=== PATIENT | female | born 1945 | race Caucasian/White ===

== ENCOUNTER 2018-01-06 09:44 | Inpatient (IN) | payer MEDICARE, BC ==
[~2018-01-06] VITALS: Ht 167.6 cm; Wt 83.7 kg
[2018-01-06 09:45] VITALS: BP 134/56; PULSE 108; RESP 24; TEMP 101.3; O2SAT 100
--- NOTE | 2018-01-06 10:38 | PD ---
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 Said she went to urgent care and they thought it was bursitis and gave her prednisone and tramadol. Said the pain is worst and she is unable to move her left hip due to pain. Denies any trauma, focal weakness or numbness, chest pain, sob, vomiting, abdominal pain. Pt had fever and nausea today. PFSH Social History Tobacco Use: No Allergies-Medications (Allergen,Severity, Reaction): Coded Allergies: Penicillins (Verified Allergy, Mild, 01/06/18) sulfamethoxazole (Verified Allergy, Mild, 01/06/18) trimethoprim (Verified Allergy, Mild, 01/06/18) Reported Meds & Prescriptions Reported Meds & Active Scripts Active Reported Magnesium Oxide 500 Mg Tab 500 Mg PO DAILY Calcium 600 with Vitamin D (Calcium Carbonate-Cholecalciferol) 600-400 mg-Unit Tab 1 Tab PO DAILY Centrum Silver Women Tablet (Multivit-Min/Iron/Folic/Lutein) 8 Mg Iron-400 Mcg- 300 Mcg Tablet 1 B Complex (B-Complex Vitamins) 1 Cap 1 Cap PO DAILY Glucosamine-Chondroitin 500-400 Mg Tab 1 Tab PO DAILY Niacin 500 Mg Tab 500 Mg PO DAILY Lotronex (Alosetron HCl) 1 Mg Tab 1 Mg PO BID Glucophage (Metformin HCl) 1,000 Mg Tab 1,000 Mg PO BIDPC Zoloft (Sertraline HCl) 100 Mg Tab 100 Mg PO DAILY Atenolol 25 Mg Tab 25 Mg PO DAILY Zocor (Simvastatin) 40 Mg Tab 40 Mg PO DAILY Review of Systems Except as stated in HPI: all other systems reviewed are Neg Physical Exam Narrative GENERAL: 72yo F in moderate distress. SKIN: Focused skin assessment warm/dry. HEAD: Atraumatic. Normocephalic. EYES: Pupils equal and round. No scleral icterus. No injection or drainage. CARDIOVASCULAR: Regular rate and rhythm. No murmur appreciated. RESPIRATORY: No accessory muscle use. Clear to auscultation. Breath sounds equal bilaterally. GASTROINTESTINAL: Abdomen soft, non-tender, nondistended. MUSCULOSKELETAL: Left hip: +TTP left hip up to mid femur. Warm to touch but no erythema, open wounds or discharge. Decreased ROM due to pain. Sensation intact. Distal pulses intact. NEUROLOGICAL: Awake and alert. No obvious cranial nerve deficits. Motor grossly within normal limits. Normal speech. PSYCHIATRIC: Appropriate mood and affect; insight and judgment normal. Data Data Last Documented VS Vital Signs Date Time Temp Pulse Resp B/P (MAP) Pulse Ox O2 Delivery O2 Flow Rate FiO2 01/06/18 11:51 85 17 117/58 (77) 94 Room Air 01/06/18 09:45 101.3 Orders Orders Blood Culture (01/06/18 10:31) Complete Blood Count With Diff (01/06/18 10:31) Basic Metabolic Panel (Bmp) (01/06/18 10:31) Prothrombin Time / Inr (Pt) (01/06/18 10:31) Act Partial Throm Time (Ptt) (01/06/18 10:31) Lactic Acid Sepsis Protocol (01/06/18 10:31) Hip, Uni(Ap&Lat) W Ap Pelvis (01/06/18 ) Acetaminophen (Tylenol) (01/06/18 10:45) Sodium Chlor 0.9% 1000 Ml Inj (Ns 1000 M (01/06/18 10:45) Morphine Inj (Morphine Inj) (01/06/18 10:45) Ondansetron Inj (Zofran Inj) (01/06/18 10:45) Vancomycin Inj (Vancomycin Inj) (01/06/18 12:00) Mri Joint Hip W&W/O Contrast (01/06/18 ) Morphine Inj (Morphine Inj) (01/06/18 12:30) Admit Order (Ed Use Only) (01/06/18 12:21) Labs Laboratory Tests Test 01/06/18 10:40 01/06/18 10:45 White Blood Count 16.4 TH/MM3 Red Blood Count 4.12 MIL/MM3 Hemoglobin 11.2 GM/DL Hematocrit 33.8 % Mean Corpuscular Volume 82.1 FL Mean Corpuscular Hemoglobin 27.1 PG Mean Corpuscular Hemoglobin Concent 33.0 % Red Cell Distribution Width 15.9 % Platelet Count 241 TH/MM3 Mean Platelet Volume 7.7 FL Neutrophils (%) (Auto) 93.8 % Lymphocytes (%) (Auto) 2.0 % Monocytes (%) (Auto) 4.0 % Eosinophils (%) (Auto) 0.1 % Basophils (%) (Auto) 0.1 % Neutrophils # (Auto) 15.3 TH/MM3 Lymphocytes # (Auto) 0.3 TH/MM3 Monocytes # (Auto) 0.6 TH/MM3 Eosinophils # (Auto) 0.0 TH/MM3 Basophils # (Auto) 0.0 TH/MM3 CBC Comment DIFF FINAL Differential Comment Prothrombin Time 11.2 SEC Prothromb Time International Ratio 1.1 RATIO Activated Partial Thromboplast Time 26.3 SEC Blood Urea Nitrogen 18 MG/DL Creatinine 1.00 MG/DL Random Glucose 173 MG/DL Calcium Level 9.1 MG/DL Sodium Level 130 MEQ/L Potassium Level 4.4 MEQ/L Chloride Level 96 MEQ/L Carbon Dioxide Level 26.2 MEQ/L Anion Gap 8 MEQ/L Estimat Glomerular Filtration Rate 55 ML/MIN Lactic Acid Level 1.9 mmol/L MDM Medical Decision Making Medical Screen Exam Complete: Yes Emergency Medical Condition: Yes Differential Diagnosis Septic joint vs. abscess vs. cancer Narrative Course 72yo F with left hip pain for a few days. No trauma. Pt is febrile, tachycardic and unable to move left hip secondary to pain. Pt is septic and suspect septic arthritis so blood cultures, labs and lactic acid sent. Labs reviewed, leukocytosis at 16.4. Lactic acid 1.9. Xray left hip showed arthritic changes. Pt reevaluated after morphine and still with a lot of pain, concerning for infectious process. MRI left hip ordered and pt empirically covered with IV vancomycin. MRI left hip showed joint effusion with enhancement. Pt will need arthrocentesis and orthopedic consult. Discussed with Dr. Oglesby and accepted to her service. Sepsis Criteria SIRS Criteria (2 or more): Temp > 100.9 or < 96.8, Heart rate over 90 Sepsis Criteria (SIRS+source): Infect source susp/known Diagnosis Primary Impression: Septic joint Qualified Codes: M00.9 - Pyogenic arthritis, unspecified Admitting Information Admitting Physician Requests: Admit Bere Blankenship DO Jan 06, 2018 10:38
[2018-01-06] MEDS ORDERED: SODIUM CHLOR 0.9% 1000 ML INJ 1,000 ML IV ONE (10:45)
[2018-01-06] MEDS ORDERED: MORPHINE SULFATE 2 MG/ML INJ IV PUSH ONE ×2 (10:45→12:30)
[2018-01-06] MEDS ORDERED: ACETAMINOPHEN 325 MG TAB PO ONE (10:45)
[2018-01-06] MEDS ORDERED: ONDANSETRON HCL 4 MG/2 ML VIAL IV PUSH ONE (10:45)
[2018-01-06 11:17] LABS: AUTOMATED NEUTROPHIL # 15.3 TH/MM3 (1.8-7.7); BASOPHIL % 0.1 % (0.0-2.0); EOSINOPHIL % 0.1 % (0.0-4.0); HEMATOCRIT 33.8 % (35.0-46.0); HEMOGLOBIN 11.2 GM/DL (11.6-15.3); LYMPHOCYTE # 0.3 TH/MM3 (1.0-4.8); MEAN CELL VOLUME 82.1 FL (80.0-100.0); MEAN CORPUSCULAR HEMOGLOBIN 27.1 PG (27.0-34.0); MEAN PLATELET VOLUME 7.7 FL (7.0-11.0); MONOCYTE # 0.6 TH/MM3 (0-0.9); NEUT % 93.8 % (16.0-70.0); PLATELET COUNT 241 TH/MM3 (150-450); RED BLOOD COUNT 4.12 MIL/MM3 (4.00-5.30); RED CELL DISTRIBUTION WIDTH 15.9 % (11.6-17.2); WHITE BLOOD COUNT 16.4 TH/MM3 (4.0-11.0)
[2018-01-06 11:29] LABS: INTERNATIONAL NORMALIZED RATIO 1.1 RATIO; PROTHROMBIN TIME - PATIENT 11.2 SEC (9.8-11.6)
[2018-01-06 11:33] LABS: BICARBONATE 26.2 MEQ/L (21.0-32.0); CALCIUM 9.1 MG/DL (8.5-10.1)
[2018-01-06 11:51] VITALS: BP 117/58; PULSE 85; RESP 17; O2SAT 94
--- NOTE | 2018-01-06 11:57 | RADRPT ---
EXAM DATE/TIME: 01/06/2018 11:38 [facility] COMPARISON: No previous studies available for comparison. INDICATIONS : Pain. MEDICAL HISTORY : None. SURGICAL HISTORY : None. ENCOUNTER: Initial ACUITY: 4 - 6 days PAIN SCORE: 9/10 LOCATION: Left Lateral hip. FINDINGS: No fracture is seen. There is narrowing of the left hip joint. There are peripheral osteophytes at th e femoral head. The pubic symphysis and sacroiliac joints are intact. There is degenerative change of the lumbar spine. Clips are seen in the right lower quadrant. CONCLUSION: Arthritic change at the left hip joint. Ceasar Lopez MD on January 06, 2018 at 11:55 Board Certified Radiologist. This report was verified electronically.
[2018-01-06] MEDS ORDERED: VANCOMYCIN INJ 1,150 MG in SODIUM CHLOR 0.9% 250 ML INJ 250 ML IV ONE (12:00)
[2018-01-06 12:27] VITALS: BP 116/56; PULSE 90; RESP 18; O2SAT 100
[2018-01-06] MEDS ORDERED: LACTULOSE SYRUP 20 GM/30 ML CUP PO PRN (12:45)
[2018-01-06] MEDS ORDERED: SODIUM CHLORIDE 0.9% FLUSH 10 ML FLUSH IV FLUSH PRN (12:45)
[2018-01-06] MEDS ORDERED: NALOXONE HCL 0.4 MG/ML AMP IV PUSH PRN (12:45)
[2018-01-06] MEDS ORDERED: Vancomycin Consult Pharmacy 1 EA OTHER SCH (12:45)
[2018-01-06] MEDS ORDERED: VANCOMYCIN INJ 1,000 MG in SODIUM CHLOR 0.9% 250 ML INJ 250 ML IV SCH (12:45)
[2018-01-06] MEDS ORDERED: MORPHINE SULFATE 2 MG/ML INJ IV PUSH PRN (12:45)
[2018-01-06] MEDS ORDERED: ONDANSETRON HCL 4 MG/2 ML VIAL IVP PRN (12:45)
[2018-01-06] MEDS ORDERED: ACETAMINOPHEN 325 MG TAB PO PRN ×2 (12:45)
[2018-01-06] MEDS ORDERED: ACETAMINOPHEN/HYDROcodone 325 MG/5 MG TAB PO PRN (12:45)
[2018-01-06] MEDS ORDERED: SENNOSIDES 8.6 MG TAB PO PRN (12:45)
[2018-01-06] MEDS ORDERED: BISACODYL 10 MG SUPP RECTAL PRN (12:45)
[2018-01-06] MEDS ORDERED: MAGNESIUM HYDROXIDE SUSP 30 ML CUP PO PRN (12:45)
[2018-01-06 12:49] VITALS: O2SAT 95
[2018-01-06] MEDS ORDERED: GADODIAMIDE PF 287 MG/ML 20 ML VIAL (for RAD MRI) IVCONTRAST ONE (12:55)
--- NOTE | 2018-01-06 13:13 | HHI.HP ---
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 Said she went to urgent care and they thought it was bursitis and gave her prednisone and tramadol. Said the pain is worst and she is unable to move her left hip due to pain. Denies any trauma, focal weakness or numbness, chest pain, sob, vomiting, abdominal pain. No urinary complaints. Denies any cough. Pt had fever and nausea today. 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 Ferny Gimenez September 2014 laser surgery to stop nasal bleeding Dr. Ramirez September 2015 cataract surgery both eyes October 27, 2016 removal of left kidney and carcinoid tumor Dr. Maradiaga March 07, 2017 surgical biopsy of staph infection in neck Dr. Jiménez, patient says stomach infection was not MRSA Reported Medications Reported Meds & Active Scripts Active Reported Magnesium Oxide 500 Mg Tab 500 Mg PO DAILY Calcium 600 with Vitamin D (Calcium Carbonate-Cholecalciferol) 600-400 mg-Unit Tab 1 Tab PO DAILY Centrum Silver Women Tablet (Multivit-Min/Iron/Folic/Lutein) 8 Mg Iron-400 Mcg- 300 Mcg Tablet 1 B Complex (B-Complex Vitamins) 1 Cap 1 Cap PO DAILY Glucosamine-Chondroitin 500-400 Mg Tab 1 Tab PO DAILY Niacin 500 Mg Tab 500 Mg PO DAILY Lotronex (Alosetron HCl) 1 Mg Tab 1 Mg PO BID Glucophage (Metformin HCl) 1,000 Mg Tab 1,000 Mg PO BIDPC Zoloft (Sertraline HCl) 100 Mg Tab 100 Mg PO DAILY Atenolol 25 Mg Tab 25 Mg PO DAILY Zocor (Simvastatin) 40 Mg Tab 40 Mg PO DAILY Allergies: Coded Allergies: Penicillins (Verified Allergy, Mild, 01/06/18) sulfamethoxazole (Verified Allergy, Mild, 01/06/18) trimethoprim (Verified Allergy, Mild, 01/06/18) Family History No history of cancer in family Social History Denies alcohol use, illicit drug use or tobacco use Physical Exam Vital Signs Vital Signs Date Time Temp Pulse Resp B/P (MAP) Pulse Ox O2 Delivery O2 Flow Rate FiO2 01/06/18 12:49 95 21 01/06/18 12:27 90 18 116/56 (76) 100 01/06/18 11:51 85 17 117/58 (77) 94 Room Air 01/06/18 09:45 101.3 108 24 134/56 (82) 100 Physical Exam GENERAL: This is a well-nourished, well-developed patient, in no apparent distress. SKIN: No rashes, ecchymoses or lesions. Cool and dry. HEAD: Atraumatic. Normocephalic. No temporal or scalp tenderness. EYES: Pupils equal round and reactive. Extraocular motions intact. No scleral icterus. No injection or drainage. ENT: Nose without bleeding, purulent drainage or septal hematoma. Throat without erythema, tonsillar hypertrophy or exudate. Uvula midline. Airway patent. NECK: Trachea midline. No JVD or lymphadenopathy. Supple, nontender, no meningeal signs. CARDIOVASCULAR: Regular rate and rhythm without murmurs, gallops, or rubs. RESPIRATORY: Clear to auscultation. Breath sounds equal bilaterally. No wheezes , rales, or rhonchi. GASTROINTESTINAL: Abdomen soft, non-tender, nondistended. No hepato-splenomegaly , or palpable masses. No guarding. MUSCULOSKELETAL: Extremities without clubbing, cyanosis, or edema. Limited range of motion of left hip due to severe pain. There is no erythema or edema of the left hip. No joint tenderness, effusion, or edema noted. No calf tenderness. Negative Homans sign bilaterally. NEUROLOGICAL: Awake and alert. Cranial nerves II through XII intact. Motor and sensory grossly within normal limits. Five out of 5 muscle strength in all muscle groups. Normal speech. Laboratory Laboratory Tests Test 01/06/18 10:40 01/06/18 10:45 White Blood Count 16.4 Red Blood Count 4.12 Hemoglobin 11.2 Hematocrit 33.8 Mean Corpuscular Volume 82.1 Mean Corpuscular Hemoglobin 27.1 Mean Corpuscular Hemoglobin Concent 33.0 Red Cell Distribution Width 15.9 Platelet Count 241 Mean Platelet Volume 7.7 Neutrophils (%) (Auto) 93.8 Lymphocytes (%) (Auto) 2.0 Monocytes (%) (Auto) 4.0 Eosinophils (%) (Auto) 0.1 Basophils (%) (Auto) 0.1 Neutrophils # (Auto) 15.3 Lymphocytes # (Auto) 0.3 Monocytes # (Auto) 0.6 Eosinophils # (Auto) 0.0 Basophils # (Auto) 0.0 CBC Comment DIFF FINAL Differential Comment Prothrombin Time 11.2 Prothromb Time International Ratio 1.1 Activated Partial Thromboplast Time 26.3 Blood Urea Nitrogen 18 Creatinine 1.00 Random Glucose 173 Calcium Level 9.1 Sodium Level 130 Potassium Level 4.4 Chloride Level 96 Carbon Dioxide Level 26.2 Anion Gap 8 Estimat Glomerular Filtration Rate 55 Lactic Acid Level 1.9 Date/Time Source Procedure Growth Status 01/06/18 10:45 Blood Peripheral Aerobic Blood Culture Pending Received 01/06/18 10:45 Blood Peripheral Anaerobic Blood Culture Pending Received Result Diagram: 01/06/18 1040 01/06/18 1040 Caprini VTE Risk Assessment Caprini VTE Risk Assessment: Mod/High Risk (score >= 2) Caprini Risk Assessment Model Point Value = 1 Point Value = 2 Point Value = 3 Point Value = 5 Age 41-60 Minor surgery BMI > 25 kg/m2 Swollen legs Varicose veins or History of unexplained or recurrent spontaneous Oral contraceptives or hormone replacement Sepsis (< 1 month) Serious lung disease, including pneumonia (< 1 month) Abnormal pulmonary function Acute myocardial infarction Congestive heart failure (< 1 month) History of inflammatory bowel disease Medical patient at bed rest Age 61-74 Arthroscopic surgery Major open surgery (> 45 min) Laparoscopic surgery (> 45 min) Malignancy Confined to bed (> 72 hours) Immobilizing plaster cast Central venous access Age >= 75 History of VTE Family history of VTE Factor V Leiden Prothrombin [id number] Lupus anticoagulant Anticardiolipin antibodies Elevated serum homocysteine Heparin-induced thrombocytopenia Other congenital or acquired thrombophilia Stroke (< 1 month) Elective arthroplasty Hip, pelvis, or leg fracture Acute spinal cord injury (< 1 month) Prophylaxis Regimen Total Risk Factor Score Risk Level Prophylaxis Regimen 0-1 Low Early ambulation 2 Moderate Order ONE of the following: *Sequential Compression Device (SCD) *Heparin 5000 units SQ BID 3-4 Higher Order ONE of the following medications: *Heparin 5000 units SQ TID *Enoxaparin/Lovenox 40 mg SQ daily (WT < 150 kg, CrCl > 30 mL/min) *Enoxaparin/Lovenox 30 mg SQ daily (WT < 150 kg, CrCl > 10-29 mL/min) *Enoxaparin/Lovenox 30 mg SQ BID (WT < 150 kg, CrCl > 30 mL/min) AND/OR *Sequential Compression Device (SCD) 5 or more Highest Order ONE of the following medications: *Heparin 5000 units SQ TID (Preferred with Epidurals) *Enoxaparin/Lovenox 40 mg SQ daily (WT < 150 kg, CrCl > 30 mL/min) *Enoxaparin/Lovenox 30 mg SQ daily (WT < 150 kg, CrCl > 10-29 mL/min) *Enoxaparin/Lovenox 30 mg SQ BID (WT < 150 kg, CrCl > 30 mL/min) AND *Sequential Compression Device (SCD) Assessment and Plan Assessment and Plan Very pleasant 72-year-old female with Left hip pain, inability to ambulate, left hip effusion seen on MRI Sepsis patient presented with leukocytosis, tachycardia, fever temp 101.3 source of infection likely left hip. X-ray of the left hip reviewed, no fracture MRI of the left hip reviewed shows left hip joint effusion with joint space narrowing and surrounding enhancement. Blood cultures obtained With multiple antibiotic allergies, started on vancomycin IV antibiotic Received 1 L bolus normal saline in the emergency room Continue IV fluids normal saline Consult orthopedics for further evaluation Consult infectious disease Diabetes mellitus type 2 hold metformin. Monitor blood sugar. Accu-Cheks, insulin sliding scale Chronic medical problems appears at baseline monitor. Restart home medications as appropriate DVT prophylaxis SCDs/teds. Hold chemical prophylaxis at this time patient with history of HHT, Arik Neal Rendu syndrome Discussed Condition With Patient, family at bedside, nurse, ED physician Dr. Blnakenship Physician Certification 2 Midnight Certification Type: Admission for Inpatient Services Order for Inpatient Services The services are ordered in accordance with Medicare regulations or non- Medicare payer requirements, as applicable. In the case of services not specified as inpatient-only, they are appropriately provided as inpatient services in accordance with the 2-midnight benchmark. Estimated LOS (days): 3 days is the estimated time the patient will need to remain in the hospital, assuming treatment plan goals are met and no additional complications. Post-Hospital Plan: Home Shannan Oglesby MD Jan 06, 2018 13:13
--- NOTE | 2018-01-06 13:26 | RADRPT ---
EXAM DATE/TIME: 01/06/2018 12:37 [facility] COMPARISON: HIP LEFT (AP&LAT 2/3VWS) W AP PELVIS, January 06, 2018, 11:38. INDICATIONS : Severe left hip pain x 2 days. CONTRAST: 15 cc Omniscan (gadodiamide) IV MEDICAL HISTORY : Carcinoma, colon. Diabetes mellitus type 2. Carcinoma kidney SURGICAL HISTORY : Colon resection. Cholecystectomy. Left kidney removed. ENCOUNTER: Initial ACUITY: 2 day PAIN SCORE: 10/10 LOCATION: Left hip TECHNIQUE: Multiplanar, multisequence MRI examination was performed without contrast and after the intravenous a dministration of gadolinium. FINDINGS: BONE/CARTILAGE: Bone marrow signal is homogeneous. There is diffuse thinning of the articular cartilage at the left f emoral head and acetabulum. There is some spurring at the periphery of the femoral head. LABRUM: Within normal limits. MUSCLES/TENDONS: All of the visualized muscles and tendons are intact. MISCELLANEOUS: There is a left hip joint effusion. There some increased signal in the adductor muscles medial to the proximal femur. There is also some edema seen in the anterior distal gluteus musculature anterior an d lateral to the greater trochanter. There is some edema within the lateral subcutaneous fat lateral to the hip seen on the axial images. This can be correlated the patient's head in the recent injury. POST-CONTRAST: There is enhancement in the soft tissues immediately surrounding the left femoral neck. CONCLUSION: Left hip joint effusion with joint space narrowing and surrounding enhancement. This can be secondary to underlying arthritis. Some peripheral inflammatory change from effusion could cause this appearan ce. Infection cannot be excluded in the correct clinical situation. However, given the osteophytes, m uch of this may be from chronic change. The edema within the adductor muscles and distal gluteal musc ulature could be from strain. Ceasar Lopez MD on January 06, 2018 at 13:09 Board Certified Radiologist. This report was verified electronically.
[2018-01-06] MEDS: SODIUM CHLOR 0.9% 1000 ML INJ 1,000 ML IV SCH ×2 (13:53→23:39)
[2018-01-06] MEDS ORDERED: ENOXAPARIN SODIUM 40 MG/0.4 ML SYRINGE SQ SCH (15:00)
[2018-01-06 16:00] VITALS: BP 110/52; PULSE 86; RESP 18; TEMP 99.3; O2SAT 93
[2018-01-06] MEDS ORDERED: HYDROmorphone HCL PF 1 MG/ML VIAL IV PUSH PRN (16:30)
[2018-01-06] MEDS ORDERED: ZOCO40TA PO (16:35)
[2018-01-06] MEDS ORDERED: ATEN25TA PO (16:36)
[2018-01-06] MEDS ORDERED: ZOLO100T PO (16:37)
[2018-01-06] MEDS ORDERED: GLUC1000 PO (16:38)
[2018-01-06] MEDS ORDERED: NIAC500T5 PO (16:38)
[2018-01-06] MEDS ORDERED: [UNRECOGNIZED DRUG - CODE] PO (16:38)
[2018-01-06] MEDS ORDERED: GLUC500T4 PO (16:40)
[2018-01-06] MEDS ORDERED: VITACAP7 PO (16:41)
[2018-01-06] MEDS ORDERED: CALC1TAB87 PO (16:43)
[2018-01-06] MEDS ORDERED: MULT1TAB61 (16:43)
[2018-01-06] MEDS ORDERED: MAGN500T2 PO (16:45)
[2018-01-06] MEDS: HYDROmorphone HCL PF 2 MG/ML VIAL IV PRN (18:05)
[2018-01-06] MEDS ORDERED: GLUCAGON 1 MG/ML VIAL OTHER PRN (18:15)
[2018-01-06] MEDS ORDERED: DEXTROSE 50% IN WATER 50 ML VIAL(D50) IV PUSH PRN (18:15)
[2018-01-06 20:00] VITALS: BP 152/65; PULSE 120; RESP 18; TEMP 100.4; O2SAT 92
--- NOTE | 2018-01-06 20:45 | HHI.IDPN ---
Note Infectious Disease Note PATIENT SEEN AND EXAMINED. FULL CONSULT DICTATED. Suspect septic arthritis of the left hip. Patient to be seen by orthopedic surgeon. Would like to get diagnostic aspiration. Hopefully tomorrow. Will hold antibiotic until aspiration and resume after. Vital Signs Date Time Temp Pulse Resp B/P (MAP) Pulse Ox O2 Delivery O2 Flow Rate FiO2 01/06/18 18:22 01/06/18 16:00 99.3 86 18 110/52 (71) 93 01/06/18 12:49 95 21 01/06/18 12:27 90 18 116/56 (76) 100 01/06/18 11:51 85 17 117/58 (77) 94 Room Air 01/06/18 09:45 101.3 108 24 134/56 (82) 100 Laboratory Tests Test 01/06/18 10:40 01/06/18 10:45 White Blood Count 16.4 TH/MM3 Red Blood Count 4.12 MIL/MM3 Hemoglobin 11.2 GM/DL Hematocrit 33.8 % Mean Corpuscular Volume 82.1 FL Mean Corpuscular Hemoglobin 27.1 PG Mean Corpuscular Hemoglobin Concent 33.0 % Red Cell Distribution Width 15.9 % Platelet Count 241 TH/MM3 Mean Platelet Volume 7.7 FL Neutrophils (%) (Auto) 93.8 % Lymphocytes (%) (Auto) 2.0 % Monocytes (%) (Auto) 4.0 % Eosinophils (%) (Auto) 0.1 % Basophils (%) (Auto) 0.1 % Neutrophils # (Auto) 15.3 TH/MM3 Lymphocytes # (Auto) 0.3 TH/MM3 Monocytes # (Auto) 0.6 TH/MM3 Eosinophils # (Auto) 0.0 TH/MM3 Basophils # (Auto) 0.0 TH/MM3 CBC Comment DIFF FINAL Differential Comment Prothrombin Time 11.2 SEC Prothromb Time International Ratio 1.1 RATIO Activated Partial Thromboplast Time 26.3 SEC Blood Urea Nitrogen 18 MG/DL Creatinine 1.00 MG/DL Random Glucose 173 MG/DL Calcium Level 9.1 MG/DL Sodium Level 130 MEQ/L Potassium Level 4.4 MEQ/L Chloride Level 96 MEQ/L Carbon Dioxide Level 26.2 MEQ/L Anion Gap 8 MEQ/L Estimat Glomerular Filtration Rate 55 ML/MIN Lactic Acid Level 1.9 mmol/L Rahul Aguirre MD Jan 06, 2018 20:45
[2018-01-06] MEDS: SODIUM CHLORIDE 0.9% FLUSH 10 ML FLUSH IV FLUSH SCH (21:00)
[2018-01-06] MEDS: ALOSETRON 1 MG PO SCH (21:00)
[2018-01-06] MEDS: DOCUSATE SODIUM 50 MG/SENNA 8.6 MG TAB PO SCH (21:00)
--- NOTE | 2018-01-06 21:35 | MB ---
cc: STEFANIE OGLESBY MD, FRANKLYN F. MD DATE OF CONSULTATION: 01/06/[address] Oglesby. REASON FOR CONSULTATION: Sepsis, immunocompromised patient. Possible septic arthritis. HISTORY OF PRESENT ILLNESS This is a 72-year-old white female who was brought to the emergency department because of left hip pain. The patient and her are traveling from [place]. She developed pain in the left hip and was evaluated at an [facility] five days ago. She was given pain medication since it was felt that it was likely due to bursitis. However, the pain persisted and three days ago the patient's had to get a wheelchair because she had difficulty ambulating and eventually he brought her to the emergency department for evaluation. An MRI was performed and it showed left hip joint effusion with joint space narrowing and surrounding enhancement. The patient had no fevers reported before but she had an elevated temperature of 101.3 degrees this morning and white blood cell count was 16.4 with left shift. Blood cultures were obtained and she was started on vancomycin. This consultation is requested for evaluation. The patient has a history of renal cancer. She underwent nephrectomy in October 2016. She developed a staph wound infection at the cervical area of the neck in February of 2017 and received antibiotic therapy. The states that the staph was a sensitive staph and was not MRSA. The patient and her have been vacationing. They went to [place] about ten days ago but after she had walked in the park she did not complain of any pain. She denies any strain The patient was also given prednisone at the time when she was given the pain medication at the Urgent Care Center. PAST MEDICAL HISTORY/PAST SURGICAL HISTORY 1. Fmqjw-Qkvlr-Gnswa syndrome. 2. Diabetes mellitus. 3. Irritable bowel syndrome. 4. 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 5. Left knee arthroscopic surgery in 1985. 6. Cholecystectomy. 7. Breast lump resection. 8. History of laser surgery of the nose. 9. 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 ALLERGIES PENICILLIN. BACTRIM. MEDICATIONS: 1. Vancomycin. 2. Tenormin. 3. Zoloft. 4. Niacin. 5. Pravachol. 6. Deidra-Colace 7. Insulin. 8. [place] 5 p.r.n. SOCIAL HISTORY: The patient is . She lives with her . Positive alcohol use. No tobacco. No illicit drug use. FAMILY HISTORY: Noncontributory. REVIEW OF SYSTEMS: Significant for left hip pain and difficulty ambulating. The patient reports the pain was a 10/10 scale, otherwise negative. PHYSICAL EXAMINATION: This is a well-developed female who is very drowsy from receiving pain medications. She however awakens easily and is alert and oriented when awakened. Vital signs: Include temperature 99.3, BP 101/52, respirations 1886. Heart rate 86. HEENT: Head is atraumatic. Extraocular movements grossly intact, pupils reactive to light. No icterus. Oropharynx has moist mucosa. Neck: Supple without adenopathy. Lungs: Clear breath sounds bilateral. Heart: Regular S1-S2. No murmurs, rubs, or gallops. Abdomen: Bowel sounds present, soft, nontender. EXTREMITIES: The left hip has tenderness on deep palpation and elicits pain on raising the left leg, no significant visible edema, no erythema. RECTAL: Not performed. SKIN: No rash. NEUROLOGIC: No gross focal findings. PSYCHIATRIC: Patient is calm and cooperative. LABORATORY DATA: BC 16.4, platelets 241, 93% neutrophils, creatinine 1.0, BUN 18, sodium 130, blood cultures pending. IMPRESSION 1. Septic arthritis of the left hip with left hip effusion. 2. Leukocytosis. RECOMMENDATIONS 1. Hold on the vancomycin since the patient will likely need to have aspiration of the left hip for diagnostic purposes. 2. Monitor the temperature 3. Obtain sedimentation rate and C-reactive protein. 4. Once the decision on aspiration of the hip is made the antibiotic can be resumed with treatment with vancomycin. Thank you for the consultation. I will follow the patient's progress. The impression has been discussed with the patient's who was at bedside during my evaluation. Rahul Aguirre MD FD/KASHIF /8:27 PM /9:07 PM
[2018-01-06] MEDS: INSULIN ASPART SUPPLEMENTAL SCALE SQ SCH (22:32)
[2018-01-07] VITALS (11 sets, daily range): BP systolic 96–135; BP diastolic 44–86; PULSE 72–120; RESP 18–20; TEMP 97.3–98.5; O2SAT 92–99
[2018-01-07] MEDS: HYDROmorphone HCL PF 2 MG/ML VIAL IV PRN ×3 (00:53→16:23)
[2018-01-07] MEDS: ACETAMINOPHEN/HYDROcodone 325 MG/10 MG TAB PO PRN ×2 (01:24→05:58)
[2018-01-07] MEDS ORDERED: METOPROLOL TARTRATE 25 MG TAB PO ONE (02:00)
[2018-01-07 03:35] LABS: BASOPHIL % 0.1 % (0.0-2.0); HEMATOCRIT 31.8 % (35.0-46.0); HEMOGLOBIN 10.6 GM/DL (11.6-15.3); LYMPH % 3.9 % (9.0-44.0); LYMPHOCYTE # 0.6 TH/MM3 (1.0-4.8); MEAN CELL VOLUME 82.3 FL (80.0-100.0); MEAN CORPUSCULAR HEMOGLOBIN 27.4 PG (27.0-34.0); MEAN CORPUSCULAR HGB CONC 33.3 % (32.0-36.0); MEAN PLATELET VOLUME 7.9 FL (7.0-11.0); MONO % 5.3 % (0.0-8.0); MONOCYTE # 0.8 TH/MM3 (0-0.9); NEUT % 90.7 % (16.0-70.0); PLATELET COUNT 235 TH/MM3 (150-450); RED BLOOD COUNT 3.86 MIL/MM3 (4.00-5.30); RED CELL DISTRIBUTION WIDTH 16.1 % (11.6-17.2); WHITE BLOOD COUNT 15.4 TH/MM3 (4.0-11.0)
[2018-01-07 04:00] LABS: BICARBONATE 21.8 MEQ/L (21.0-32.0); CALCIUM 8.6 MG/DL (8.5-10.1); CREATININE 1.29 MG/DL (0.50-1.00); MAGNESIUM 1.9 MG/DL (1.5-2.5)
[2018-01-07 04:23] LABS: TOXIC VACUOLATION PRESENT (NONE SEEN)
[2018-01-07] MEDS ORDERED: HYDROmorphone HCL PF 2 MG/ML VIAL IV PUSH ONE (04:30)
--- NOTE | 2018-01-07 05:43 | RADRPT ---
EXAM DATE/TIME: 01/07/2018 04:31 [facility] COMPARISON: No previous studies available for comparison. INDICATIONS : Short of breath. MEDICAL HISTORY : None. SURGICAL HISTORY : None. ENCOUNTER: Subsequent ACUITY: 1 week PAIN SCORE: 0/10 LOCATION: Bilateral chest FINDINGS: Cardiac silhouette is mildly enlarged. Mild diffuse interstitial prominence. Bony thorax is intact. CONCLUSION: 1. Cardiomegaly with mild positive fluid balance. Doug Hurtado MD on January 07, 2018 at 5:42 Board Certified Radiologist. This report was verified electronically.
[2018-01-07] MEDS ORDERED: FUROSEMIDE 40 MG/4 ML VIAL IV PUSH ONE (06:15)
--- NOTE | 2018-01-07 08:42 | PD.CONS ---
cc: Farida Garcia Left hip pain (Farida Garcia) HPI Service Orthopedic Surgeons Consult Requested By ER staff Reason for Consult Left hip pain, effusion on MRI Primary Care Physician Unknown Admission Diagnosis Sepsis with left hip pain Diagnoses: (1) Effusion of hip joint, left Diagnosis: Principal (2) History of staph infection Chief Complaint: Left hip pain (Farida Garcia) History of Present Illness 72-year-old very pleasant female presented to [place] emergency department late last evening after having excruciating left hip pain and not feeling well. Patient was admitted for questionable sepsis. Patient states she is currently on vacation and has had left hip pain for 3 days, it subsequently got worse yesterday evening. Patient admits to a history of a staph infection in her cervical spine, possibly an epidural abscess, approximately 2 years ago after a nephrectomy. 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 MRI revealed a left hip effusion, orthopedic consultation was requested at this time. is at bedside. Patient states that she's had no previous orthopedic interventions of her left hip, she is aware that she has osteoarthritis and left hip. Only previous orthopedic surgeries include a knee arthroscopic surgery in the late . Previously ambulated unassisted prior to this injury. No other musculoskeletal concerns. (Farida Garcia) Review of Systems Well outlined medical record (Farida Garcia) Past Family Social History Past Medical History Usxjn-Xbqrl-Jfdnz, DM2, Irritable bowel, right colectomy secondary to adenocarcinoma of cecum 2006, carcinoid tumor s/p left nephrectomy 10/2016 and now cancer free since 2016 Past Surgical History right colectomy secondary to adenocarcinoma of cecum 2006, carcinoid tumor s/p left nephrectomy 10/2016 tonsillectomy February 1986 arthroscopic surgery of left knee to remove torn cartilage May 1988 emergent cholecystectomy with infection in bile duct May 1989 deviated septum repaired September 2003 surgery to remove lump in right breast - benign June 2004, May 2005, June 2006, August 2007, January 2010, April 2012 laser nose surgery at [place] and [place], [place] Dr. 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 Ferny Gimenez September 2014 laser surgery to stop nasal bleeding Dr. Ramirez September 2015 cataract surgery both eyes October 27, 2016 removal of left kidney and carcinoid tumor Dr. Maradiaga March 07, 2017 surgical biopsy of staph infection in neck Dr. Jiménez, patient says stomach infection was not MRSA (Farida Garcia) Allergies: Coded Allergies: Penicillins (Verified Allergy, Mild, 01/06/18) sulfamethoxazole (Verified Allergy, Mild, 01/06/18) trimethoprim (Verified Allergy, Mild, 01/06/18) Active Ordered Medications Current Medications Medications (Trade) Dose Ordered Sig/Dalia Route Start Time Stop Time Status Last Admin Pharmacy Profile Note 0 ml @ 0 mls/hr UNSCH OTHER 01/06/18 12:45 Sodium Chloride 1,000 ml @ 100 mls/hr Q10H IV 01/06/18 13:00 Future Hold 01/06/18 23:39 (NS Flush) 2 ml UNSCH PRN IV FLUSH 01/06/18 12:45 (NS Flush) 2 ml BID IV FLUSH 01/06/18 21:00 (Tylenol) 650 mg Q4H PRN PO 01/06/18 12:45 01/06/18 23:51 (Zofran Inj) 4 mg Q6H PRN IVP 01/06/18 12:45 (Tylenol) 650 mg Q6H PRN PO 01/06/18 12:45 ([place] 5-325 Mg) 1 tab Q4H PRN PO 01/06/18 12:45 ([place] 10-325 Mg) 1 tab Q4H PRN PO 01/06/18 12:45 01/07/18 05:58 (Narcan Inj) 0.4 mg UNSCH PRN IV PUSH 01/06/18 12:45 (Deidra-Colace) 1 tab BID PO 01/06/18 21:00 (Milk Of Magnesia Liq) 30 ml Q12H PRN PO 01/06/18 12:45 (Senokot) 17.2 mg Q12H PRN PO 01/06/18 12:45 (Dulcolax Supp) 10 mg DAILY PRN RECTAL 01/06/18 12:45 (Lactulose Liq) 30 ml DAILY PRN PO 01/06/18 12:45 Vancomycin HCl 1500 mg/Sodium Chloride 515 ml @ 257.5 mls/ hr Q24H IV 01/07/18 13:00 Future Hold Miscellaneous Information SPECIFIC LAB TO BE ... ONCE ONCE .XX 01/09/18 12:45 01/09/18 12:46 (Dilaudid Pf Inj) 1 mg Q4H PRN IV 01/06/18 18:00 01/07/18 00:53 (Tenormin) 25 mg DAILY PO 01/07/18 09:00 (Zoloft) 100 mg DAILY PO 01/07/18 09:00 Patient Own Medication PT OWN MED:(Alosetron (Lotronex... BID PO 01/06/18 21:00 (Mag-Ox) 400 mg DAILY PO 01/07/18 09:00 (Niacin) 500 mg DAILY PO 01/07/18 09:00 (Pravachol) 80 mg DAILY PO 01/07/18 09:00 (D50w (Vial) Inj) 50 ml UNSCH PRN IV PUSH 01/06/18 18:15 (Glucagon Inj) 1 mg UNSCH PRN OTHER 01/06/18 18:15 (NovoLOG SUPPLEMENTAL SCALE) 1 ACHS SLIDING SCALE SQ 01/06/18 21:00 01/06/18 22:32 Reported Meds & Active Scripts Active Reported Magnesium Oxide 500 Mg Tab 500 Mg PO DAILY Calcium 600 with Vitamin D (Calcium Carbonate-Cholecalciferol) 600-400 mg-Unit Tab 1 Tab PO DAILY Centrum Silver Women Tablet (Multivit-Min/Iron/Folic/Lutein) 8 Mg Iron-400 Mcg- 300 Mcg Tablet 1 B Complex (B-Complex Vitamins) 1 Cap 1 Cap PO DAILY Glucosamine-Chondroitin 500-400 Mg Tab 1 Tab PO DAILY Niacin 500 Mg Tab 500 Mg PO DAILY Lotronex (Alosetron HCl) 1 Mg Tab 1 Mg PO BID Glucophage (Metformin HCl) 1,000 Mg Tab 1,000 Mg PO BIDPC Zoloft (Sertraline HCl) 100 Mg Tab 100 Mg PO DAILY Atenolol 25 Mg Tab 25 Mg PO DAILY Zocor (Simvastatin) 40 Mg Tab 40 Mg PO DAILY Family History No history of cancer in family Social History Denies alcohol use, illicit drug use or tobacco use (Farida Garcia) Physical Exam Vital Signs Vital Signs Date Time Temp Pulse Resp B/P (MAP) Pulse Ox O2 Delivery O2 Flow Rate FiO2 01/07/18 08:15 97.5 81 18 96/44 (61) 97 01/07/18 06:43 93 98/57 (71) 95 01/07/18 06:20 95 Nasal Cannula 3.00 01/07/18 04:00 98.3 105 18 124/71 (88) 92 01/07/18 00:00 98.5 102 18 135/86 (102) 92 01/06/18 20:00 100.4 120 18 152/65 (94) 92 01/06/18 18:22 01/06/18 16:00 99.3 86 18 110/52 (71) 93 01/06/18 12:49 95 21 01/06/18 12:27 90 18 116/56 (76) 100 01/06/18 11:51 85 17 117/58 (77) 94 Room Air 01/06/18 09:45 101.3 108 24 134/56 (82) 100 Physical Exam LLE: Palpable tenderness on the posterior and buttock region of the left hip, any attempted range of motion passive and or active of left hip elicits pain, no calf pain, neurovascularly intact Laboratory Laboratory Tests Test 01/06/18 10:40 01/06/18 10:45 01/07/18 03:21 01/07/18 06:30 White Blood Count 16.4 15.4 Red Blood Count 4.12 3.86 Hemoglobin 11.2 10.6 Hematocrit 33.8 31.8 Mean Corpuscular Volume 82.1 82.3 Mean Corpuscular Hemoglobin 27.1 27.4 Mean Corpuscular Hemoglobin Concent 33.0 33.3 Red Cell Distribution Width 15.9 16.1 Platelet Count 241 235 Mean Platelet Volume 7.7 7.9 Neutrophils (%) (Auto) 93.8 90.7 Lymphocytes (%) (Auto) 2.0 3.9 Monocytes (%) (Auto) 4.0 5.3 Eosinophils (%) (Auto) 0.1 0.0 Basophils (%) (Auto) 0.1 0.1 Neutrophils # (Auto) 15.3 14.0 Lymphocytes # (Auto) 0.3 0.6 Monocytes # (Auto) 0.6 0.8 Eosinophils # (Auto) 0.0 0.0 Basophils # (Auto) 0.0 0.0 CBC Comment DIFF FINAL AUTO DIFF Differential Comment AUTO DIFF CONFIRMED Prothrombin Time 11.2 Prothromb Time International Ratio 1.1 Activated Partial Thromboplast Time 26.3 Blood Urea Nitrogen 18 22 Creatinine 1.00 1.29 Random Glucose 173 226 Calcium Level 9.1 8.6 Sodium Level 130 130 Potassium Level 4.4 5.2 Chloride Level 96 98 Carbon Dioxide Level 26.2 21.8 Anion Gap 8 10 Estimat Glomerular Filtration Rate 55 41 Lactic Acid Level 1.9 Toxic Vacuolation PRESENT Platelet Estimate NORMAL Platelet Morphology Comment NORMAL Erythrocyte Sedimentation Rate 54 Magnesium Level 1.9 Total Creatine Kinase 1329 Creatine Kinase MB 13.8 Creatine Kinase MB % 1.0 Troponin I 2.00 B-Type Natriuretic Peptide 1085 C-Reactive Protein 27.00 Date/Time Source Procedure Growth Status 01/06/18 10:45 Blood Peripheral Aerobic Blood Culture Pending Received 01/06/18 10:45 Blood Peripheral Anaerobic Blood Culture Pending Received (Farida Garcia) Result Diagram: 01/07/18 0321 01/07/18 0321 Imaging Last Impressions Hip and Pelvis X-Ray 01/06/18 0000 Signed Impressions: Service Date/Time: Saturday, January 06, 2018 11:38 - CONCLUSION: Arthritic change at the left hip joint. Ceasar Lopez MD Hip MRI 01/06/18 0000 Signed Impressions: Service Date/Time: Saturday, January 06, 2018 12:37 - CONCLUSION: Left hip joint effusion with joint space narrowing and surrounding enhancement. This can be secondary to underlying arthritis. Some peripheral inflammatory change from effusion could cause this appearance. Infection cannot be excluded in the correct clinical situation. However, given the osteophytes, much of this may be from chronic change. The edema within the adductor muscles and distal gluteal musculature could be from strain. Ceasar Lopez MD Course see medical chart (Farida Garcia) Assessment & Plan Problem List: (1) Effusion of hip joint, left ICD Codes: M25.452 - Effusion, left hip (2) History of staph infection ICD Codes: Z86.19 - Personal history of other infectious and parasitic diseases Assessment and Plan The findings were discussed with the patient. Dr Navi Moran has reviewed images and details of this case. Recommendations are given for consult to interventional radiology for a left hip aspiration with culture, Gram stain. Appreciate hold in antibiotics for aspiration. Progress physical therapy for mobilization and pain control as tolerated. Weight bearing as tolerated. Continue pain control. Appreciate orthopedic involvement in patient's care. Will follow closely (Farida Garcia) Assessment and Plan The exam, history of medical decision making described in the above were completed with the assistance of a mid-level provider. I reviewed and agree with the findings present. Further disposition will be rendered based upon arthrocentesis results. She is noted to have moderate to advanced osteoarthritis involving the hip and the MRI results are equivocal for a septic joint. (Navi Moran MD) Farida Garcia Jan 07, 2018 08:42 Navi Moran MD Jan 07, 2018 21:20
[2018-01-07] MEDS: INSULIN ASPART SUPPLEMENTAL SCALE SQ SCH ×4 (08:54→21:08)
[2018-01-07] MEDS: SODIUM CHLORIDE 0.9% FLUSH 10 ML FLUSH IV FLUSH SCH ×2 (08:55→21:08)
[2018-01-07] MEDS: DOCUSATE SODIUM 50 MG/SENNA 8.6 MG TAB PO SCH ×2 (08:58→21:11)
[2018-01-07] MEDS: SERTRALINE HCL 100 MG TAB PO SCH (08:59)
[2018-01-07] MEDS: MAGNESIUM OXIDE 400 MG TAB PO SCH (08:59)
[2018-01-07] MEDS: PRAVASTATIN SOD 80 MG TAB PO SCH (08:59)
[2018-01-07] MEDS: ALOSETRON 1 MG PO SCH ×2 (09:00→21:11)
[2018-01-07] MEDS ORDERED: ATENOLOL 25 MG TAB PO SCH (09:00)
[2018-01-07] MEDS ORDERED: NIACIN 100 MG TAB PO SCH (09:00)
--- NOTE | 2018-01-07 10:23 | MB ---
cc: DAMON FLORES MD DATE OF CONSULTATION 01/07/2018 HISTORY OF PRESENT ILLNESS This is a 72-year-old woman who is admitted to the hospital with severe hip pain that started approximately 5 days ago. She was seen in urgent care and at that time felt to have bursitis. She was given an anti-inflammatory and prednisone. She took this for two days and her hip pain progressed significantly occurring essentially at rest. She came to our hospital where an MRI was done of her hip joint with the suspicion of a septic hip. She is scheduled for aspiration today. We have been asked to see her as she developed atrial fibrillation last night with a rapid ventricular response. We note that she came down with a temperature of 101. This has since broken with significant diaphoresis. No chest pain or shortness of breath has been present. She denies any palpitations and no lightheadedness or dizziness has been present. Her heart rate now is controlled although still irregular. We do note that her BNP was elevated at 1075 and initial troponin was drawn at 2.0. Electrocardiogram on admission showed atrial fibrillation with a rapid response. No ST or T-wave changes were noted. She currently feels well. PAST MEDICAL HISTORY 1. Iohwo-Erdzh-Lknwp syndrome. She has had significant problems with epistaxis and is actually in a study with Avastin to help combat this. 2. Palpitations in the past for which she had been on atenolol. This had been gradually decreased over the years and no recurrence of her palpitations have been present. 3. Type 2 diabetes. 4. Denies history of hypertension. 5. She is on pravastatin for hyperlipidemia as well as a small dose of niacin. ALLERGIES 1. BACTRIM. 2. PENICILLIN. SOCIAL HISTORY The patient does not smoke. FAMILY HISTORY No significant family history of coronary disease. PHYSICAL EXAMINATION GENERAL: She is awake and alert, in no acute distress. VITAL SIGNS: Blood pressure 90/70, pulse approximately 80 and irregular. NECK: There is no neck vein distention. CARDIOVASCULAR: Irregularly irregular rhythm. No significant murmur or gallop is noted. LUNGS: Clear. ABDOMEN: Unremarkable. IMAGING DATA Chest x-ray does show mild cardiomegaly with no overt failure. ASSESSMENT The patient has had new onset of atrial fibrillation with a now controlled heart rate. She does have a troponin elevation which is likely demand mediated, although cannot rule out occult coronary disease in view of her type 2 diabetes. PLAN/RECOMMENDATIONS We have ordered an echocardiogram for further evaluation. At this point in time I think anticoagulants would be contraindicated because of her hereditary telangiectasias as well as possibility of upcoming surgery. Pending her echocardiogram will also consider a Lexiscan. Will also order a troponin for tomorrow to trend that result. MD LAI Cordon/MINA /9:27 AM /10:07 AM
[2018-01-07] MEDS ORDERED: VANCOMYCIN 1,500 MG/NS 500 ML IV SCH ×2 (13:00)
--- NOTE | 2018-01-07 13:16 | HHI.PR ---
Subjective Remarks Pt states pain is not very well controlled. States that she is frustrated regarding not getting the hip drained yet. She would like to know when this is going to happen. no nausea or vomiting Objective Vitals Vital Signs Date Time Temp Pulse Resp B/P (MAP) Pulse Ox O2 Delivery O2 Flow Rate FiO2 01/07/18 12:43 97.4 72 18 107/53 (71) 99 01/07/18 11:26 97 01/07/18 08:15 97.5 81 18 96/44 (61) 97 01/07/18 06:43 93 98/57 (71) 95 01/07/18 06:20 95 Nasal Cannula 3.00 01/07/18 04:00 98.3 105 18 124/71 (88) 92 01/07/18 00:00 98.5 102 18 135/86 (102) 92 01/06/18 20:00 100.4 120 18 152/65 (94) 92 01/06/18 18:22 01/06/18 16:00 99.3 86 18 110/52 (71) 93 I/O 01/06/18 01/06/18 01/06/18 01/07/18 01/07/18 01/07/18 07:00 15:00 23:00 07:00 15:00 23:00 Intake Total 1000 ml Balance 1000 ml Intake IV Total 1000 ml # Voids 1 2 Result Diagram: 01/07/18 0321 01/07/18 0321 Imaging Last Impressions Chest X-Ray 01/07/18 0000 Signed Impressions: Service Date/Time: Sunday, January 07, 2018 04:31 - CONCLUSION: 1. Cardiomegaly with mild positive fluid balance. Doug Hurtado MD Hip and Pelvis X-Ray 01/06/18 0000 Signed Impressions: Service Date/Time: Saturday, January 06, 2018 11:38 - CONCLUSION: Arthritic change at the left hip joint. Ceasar Lopez MD Hip MRI 01/06/18 0000 Signed Impressions: Service Date/Time: Saturday, January 06, 2018 12:37 - CONCLUSION: Left hip joint effusion with joint space narrowing and surrounding enhancement. This can be secondary to underlying arthritis. Some peripheral inflammatory change from effusion could cause this appearance. Infection cannot be excluded in the correct clinical situation. However, given the osteophytes, much of this may be from chronic change. The edema within the adductor muscles and distal gluteal musculature could be from strain. Ceasar Lopez MD Objective Remarks GENERAL: eating lunch EYES: Extraocular motions intact. ENT: Nose without drainage NECK: Trachea midline. CARDIOVASCULAR: appears regular at this time RESPIRATORY: Clear to auscultation. Breath sounds equal bilaterally. No wheezes GASTROINTESTINAL: Abdomen soft, non-tender, nondistended. No guarding. MUSCULOSKELETAL: Limited range of motion of left hip due to severe pain. There is no erythema or edema of the left hip. No calf tenderness. Negative Homans sign bilaterally. NEUROLOGICAL: Awake and alert. Normal speech. A/P Problem List: (1) Effusion of hip joint, left ICD Code: M25.452 - Effusion, left hip (2) History of staph infection ICD Code: Z86.19 - Personal history of other infectious and parasitic diseases Assessment and Plan Very pleasant 72-year-old female with Left hip pain, inability to ambulate, left hip effusion seen on MRI Sepsis patient presented with leukocytosis, tachycardia, fever temp 101.3 source of infection likely left hip. X-ray of the left hip reviewed, no fracture MRI of the left hip reviewed shows left hip joint effusion with joint space narrowing and surrounding enhancement. Blood cultures gram pos cocci/staph aureus. ID following and I did speak w Dr. Aguirre and plan is to restart vanco right after aspiration which per IR will occur today Received 1 L bolus normal saline in the emergency room. Not on IV fluids at this time. Orthopedics evaluated the pt and consulted IR for aspiration. Pt scheduled for today Diabetes mellitus type 2 hold metformin. Monitor blood sugar. Accu-Cheks, insulin sliding scale Chronic medical problems appears at baseline monitor. Restart home medications as appropriate DVT prophylaxis SCDs/teds. Hold chemical prophylaxis at this time patient with history of HHT, Arik Neal Rendu syndrome Discharge Planning Going to IR today. Vanco to be restarted right after aspiration as blood cx growing gram pos cocci/staph. Selene Magaña MD Jan 07, 2018 13:16
--- NOTE | 2018-01-07 15:17 | EKG ---
Date Performed: 01/07/2018 Time Performed: 02:13:44 PTAGE: 72 years EKG: Atrial fibrillation with rapid ventricular response. Leftward axis rSr'(V1) - probable norm al variant Poor R wave progression - probable normal variant Clinical correlation is recommended Abno rmal ECG NO PREVIOUS TRACING DOCTOR: Justin Chang Interpretating Date/Time 01/07/2018 15:15:38
[2018-01-07] MEDS ORDERED: VANCOMYCIN INJ 1,500 MG in SODIUM CHLORID 0.9% 500 ML INJ 500 ML IV ONE (16:00)
[2018-01-07] MEDS ORDERED: VANCOMYCIN INJ 1,500 MG in SODIUM CHLORID 0.9% 500 ML INJ 500 ML IV SCH (16:00)
--- NOTE | 2018-01-07 17:04 | RADRPT ---
EXAM DATE/TIME: 01/07/2018 15:44 [facility] COMPARISON: No previous studies available for comparison. INDICATIONS : Patient with a history of erffusion needs hip aspiration. MEDICAL HISTORY : Bhwem-ohnp-nuwgh syndrome Diabetes Hyperlipidemia IBS Adenocarcinmoa of cecum Carcinoid tumor SURGICAL HISTORY : Right colectomy Left nephrectomy Tonsillectomy Left knee surgery Cholecystectomy Lumpectomy Right hemicolectomy Cataract surgery ENCOUNTER: Initial ACUITY: 1 day PAIN SCORE: 10/10 LOCATION: Left hip FLUORO TIME: 0.8 minutes IMAGE SERIES: 0 DEVICE(S): 22 gauge needle was placed into the left hip joint. RESPONSE: Pre procedure pain level was 10/10 Post procedure pain level was 10/10 FLUID: Total volume of4 cc of cloudy red fluid was removed. Fluid specimen was submitted to the lab for evaluation. PROCEDURE : 1. Fluoroscopically guided left hip aspiration. The risks, benefits and alternatives to the procedure were explained and verbal and written consent w as obtained. The site was prepped in sterile fashion. Full sterile technique was used, including ca p, mask, sterile gloves and gown and a large sterile sheet. Hand hygiene and 2% chlorhexidine and/or betadine/alcohol prep was utilized per protocol for cutaneous antisepsis. The skin and subcutaneous tissues were infiltrated with local anesthetic solution. Under direct fluoroscopic guidance, a 22 gauge spinal needle was introduced to the left hip joint. A small volume of purulent joint fluid was aspirated and submitted for requested lab evaluation. The patient tolerated the procedure well and there were no complications. CONCLUSION: Uncomplicated fluoroscopic guided left hip aspiration as above. Ceasar Parikh MD on January 07, 2018 at 17:00 Board Certified Radiologist. This report was verified electronically.
--- NOTE | 2018-01-07 18:14 | ECHRPT ---
Indication: ATRIAL FIB/FLUTTER CONCLUSIONS The left ventricular systolic function is low normal with an estimated ejection fraction in the rang e of 50- 55%. Doppler parameters are consistent with impaired left ventricular relaxtion (grade 1 diastolic dysfun ction). Mild concentric left ventricular hypertrophy. The right ventricle is mildy dilated. Trace mitral valve regurgitation. Mild aortic valve regurgitation. There is moderate tricuspid regurgitation. There is estimated mild pulmonary hypertension present (range 40-50 mmHg). BP: 107 / 53 HR: 72 Rhythm: Sinus MEASUREMENTS (Male / Female) Normal Values Technical Quality:Fair 2D ECHO LV Diastolic Diameter PLAX 4.2 cm 4.2 - 5.9 / 3.9 - 5.3 cm LV Systolic Diameter PLAX 2.8 cm IVS Diastolic Thickness 0.8 cm 0.6 - 1.0 / 0.6 - 0.9 cm LVPW Diastolic Thickness 1.2 cm 0.6 - 1.0 / 0.6 - 0.9 cm LV Relative Wall Thickness 0.5 RV Internal Dim ED PLAX 4.4 cm LVOT Diameter 1.7 cm Aortic Root Diameter 2.8 cm LA Systolic Diameter LX 3.7 cm 3.0 - 4.0 / 2.7 - 3.8 cm DOPPLER AV Peak Velocity 190.0 cm/s AV Peak Gradient 14.4 mmHg AV Mean Gradient 7.0 mmHg AV Velocity Time Integral 23.1 cm LVOT Peak Velocity 85.0 cm/s LVOT Peak Gradient 2.9 mmHg LVOT Velocity Time Integral 13.5 cm AV Area Cont Eq vti 1.3 cm AV Area Cont Eq pk 1.0 cm Mitral E Point Velocity 81.9 cm/s Mitral A Point Velocity 94.8 cm/s Mitral E to A Ratio 0.9 LV E' Lateral Velocity 7.5 cm/s Mitral E to LV E' Lateral Ratio 10.9 LV E' Septal Velocity 7.4 cm/s Mitral E to LV E' Septal Ratio 11.1 TR Peak Velocity 296.0 cm/s TR Peak Gradient 35.0 mmHg Right Atrial Pressure 15.0 mmHg Pulmonary Artery Systolic Pressu 50.0 mmHg Right Ventricular Systolic Press 50.0 mmHg PV Peak Velocity 73.7 cm/s PV Peak Gradient 2.2 mmHg FINDINGS LEFT VENTRICLE Normal left ventricular size. Wall thickness is normal. The left ventricular systolic function is low normal with an estimated ejection fraction in the rang e of 50- 55%. Doppler parameters are consistent with impaired left ventricular relaxtion (grade 1 diastolic dysfun ction). Mild concentric left ventricular hypertrophy. RIGHT VENTRICLE The right ventricle is mildy dilated. The right ventricular systoilc function is normal. LEFT ATRIUM The left atrial size is mildly dilated. RIGHT ATRIUM The right atrial size is moderately dilated. ATRIAL SEPTUM The interatrial septum not well visualized. AORTA The aortic root and proximal ascending aorta are not well visualized. MITRAL VALVE Structurally normal mitral valve. Trace mitral valve regurgitation. No mitral valve stenosis. AORTIC VALVE Aortic valve sclerosis is present. Calcification of the left coronary cusp. Mild aortic valve regurgitation. No aortic valve stenosis. TRICUSPID VALVE Structurally normal tricuspid valve. There is moderate tricuspid regurgitation. The estimated pulmonary arterial pressure is 50 mmHg. There is estimated mild pulmonary hypertension present (range 40-50 mmHg). PULMONARY VALVE No pulmonary valve regurgitation or stenosis. VESSELS The inferior vena cava is normal in size. PERICARDIUM No pericardial effusion. Emeka Cody DO (Electronically Signed) Final Date:07 January 2018 18:13
[2018-01-07] MEDS: oxyCODONE/ACETAMINOPHEN 10 MG/325 MG TAB PO PRN (23:04)
[2018-01-08] VITALS (10 sets, daily range): BP systolic 93–128; BP diastolic 51–70; PULSE 58–118; RESP 20; TEMP 97.2–97.6; O2SAT 90–98
[2018-01-08] MEDS: oxyCODONE/ACETAMINOPHEN 10 MG/325 MG TAB PO PRN ×2 (04:09→08:12)
--- NOTE | 2018-01-08 07:23 | PD.ORT.PN ---
Subjective Subjective Remarks The patient is awake and alert and lying in bed. She still has pain with any attempts of range of motion of the left hip. Left hip aspiration was performed yesterday by interventional radiology Objective Vitals Vital Signs Date Time Temp Pulse Resp B/P (MAP) Pulse Ox O2 Delivery O2 Flow Rate FiO2 01/08/18 04:32 109 01/08/18 04:00 97.5 107 20 126/59 (81) 98 01/08/18 00:03 97.5 115 115/57 (76) 97 01/07/18 22:38 98.4 115 108/72 (84) 97 01/07/18 21:08 Nasal Cannula 2.00 01/07/18 20:00 97.3 120 20 127/71 (89) 92 01/07/18 17:36 93 21 01/07/18 16:00 97.6 89 18 127/63 (84) 93 01/07/18 13:57 76 01/07/18 12:43 97.4 72 18 107/53 (71) 99 01/07/18 11:26 97 01/07/18 08:15 97.5 81 18 96/44 (61) 97 I/O 01/07/18 01/07/18 01/07/18 01/08/18 01/08/18 01/08/18 07:00 15:00 23:00 07:00 15:00 23:00 Intake Total 240 ml Balance 240 ml Intake Oral 240 ml # Voids 2 3 Result Diagram: 01/07/18 0321 01/07/18 0321 Imaging Last 24 hours Impressions Hip Aspiration/Injection 01/07/181999 Signed Impressions: Service Date/Time: Sunday, January 07, 2018 15:44 - CONCLUSION: Uncomplicated fluoroscopic guided left hip aspiration as above. Ceasar Parikh MD Objective Remarks Left hip: No surrounding erythema or cellulitic changes noted, any attempts at range of motion of the left hip elicits severe left hip pain, full motion of knee and ankle, no calf pain, negative Homans sign, neurovascularly intact Assessment & Plan Problem List: (1) Effusion of hip joint, left ICD Codes: M25.452 - Effusion, left hip (2) History of staph infection ICD Codes: Z86.19 - Personal history of other infectious and parasitic diseases Assessment and Plan s/p left hip aspiration Osteoarthritis versus septic hip joint Awaiting arthrocentesis results Would possibly consider restarting antibiotics since the procedure has been completed Physical therapy for pain and mobility Will continue to follow Farida Garcia Jan 08, 2018 07:23
--- NOTE | 2018-01-08 07:31 | PD.CARD.PN ---
Subjective Subjective Remarks Hip quite painful. No chest pain or dyspnea Objective Medications Current Medications Medications (Trade) Dose Ordered Sig/Dalia Route Start Time Stop Time Status Last Admin Pharmacy Profile Note 0 ml @ 0 mls/hr UNSCH OTHER 01/06/18 12:45 Sodium Chloride 1,000 ml @ 100 mls/hr Q10H IV 01/06/18 13:00 Future Hold 01/06/18 23:39 (NS Flush) 2 ml UNSCH PRN IV FLUSH 01/06/18 12:45 (NS Flush) 2 ml BID IV FLUSH 01/06/18 21:00 01/07/18 21:08 (Tylenol) 650 mg Q4H PRN PO 01/06/18 12:45 01/06/18 23:51 (Zofran Inj) 4 mg Q6H PRN IVP 01/06/18 12:45 (Tylenol) 650 mg Q6H PRN PO 01/06/18 12:45 (Narcan Inj) 0.4 mg UNSCH PRN IV PUSH 01/06/18 12:45 (Deidra-Colace) 1 tab BID PO 01/06/18 21:00 (Milk Of Magnesia Liq) 30 ml Q12H PRN PO 01/06/18 12:45 01/07/18 23:14 (Senokot) 17.2 mg Q12H PRN PO 01/06/18 12:45 (Dulcolax Supp) 10 mg DAILY PRN RECTAL 01/06/18 12:45 (Lactulose Liq) 30 ml DAILY PRN PO 01/06/18 12:45 (Dilaudid Pf Inj) 1 mg Q4H PRN IV 01/06/18 18:00 01/07/18 16:23 (Tenormin) 25 mg DAILY PO 01/07/18 09:00 (Zoloft) 100 mg DAILY PO 01/07/18 09:00 01/07/18 08:59 Patient Own Medication PT OWN MED:(Alosetron (Lotronex... BID PO 01/06/18 21:00 (Mag-Ox) 400 mg DAILY PO 01/07/18 09:00 01/07/18 08:59 (Pravachol) 80 mg DAILY PO 01/07/18 09:00 01/07/18 08:59 (D50w (Vial) Inj) 50 ml UNSCH PRN IV PUSH 01/06/18 18:15 (Glucagon Inj) 1 mg UNSCH PRN OTHER 01/06/18 18:15 (NovoLOG SUPPLEMENTAL SCALE) 1 ACHS SLIDING SCALE SQ 01/06/18 21:00 01/07/18 21:08 (Percocet 5-325 Mg) 1 tab Q4H PRN PO 01/07/18 15:00 (Percocet 10-325 Mg) 1 tab Q4H PRN PO 01/07/18 15:00 01/08/18 04:09 Vital Signs / I&O Vital Signs Date Time Temp Pulse Resp B/P (MAP) Pulse Ox O2 Delivery O2 Flow Rate FiO2 01/08/18 04:32 109 01/08/18 04:00 97.5 107 20 126/59 (81) 98 01/08/18 00:03 97.5 115 115/57 (76) 97 01/07/18 22:38 98.4 115 108/72 (84) 97 01/07/18 21:08 Nasal Cannula 2.00 01/07/18 20:00 97.3 120 20 127/71 (89) 92 01/07/18 17:36 93 21 01/07/18 16:00 97.6 89 18 127/63 (84) 93 01/07/18 13:57 76 01/07/18 12:43 97.4 72 18 107/53 (71) 99 01/07/18 11:26 97 01/07/18 08:15 97.5 81 18 96/44 (61) 97 I/O 01/07/18 01/07/18 01/07/18 01/08/18 01/08/18 01/08/18 07:00 15:00 23:00 07:00 15:00 23:00 Intake Total 240 ml Balance 240 ml Intake Oral 240 ml # Voids 2 3 3 Physical Exam HR 100-110 Imaging Last 24 hours Impressions Hip Aspiration/Injection 01/07/181999 Signed Impressions: Service Date/Time: Sunday, January 07, 2018 15:44 - CONCLUSION: Uncomplicated fluoroscopic guided left hip aspiration as above. Ceasar Parikh MD Assessment and Plan Assessment and Plan Echo OK. will order diana to R/O occult CAD. Will increase atenolol to 50 mg daily to better control HR Scottie Cuevas MD Jan 08, 2018 07:31
[2018-01-08] MEDS: INSULIN ASPART SUPPLEMENTAL SCALE SQ SCH ×4 (08:00→21:00)
[2018-01-08] MEDS: MAGNESIUM OXIDE 400 MG TAB PO SCH (08:10)
[2018-01-08] MEDS: PRAVASTATIN SOD 80 MG TAB PO SCH (08:10)
[2018-01-08] MEDS: SODIUM CHLORIDE 0.9% FLUSH 10 ML FLUSH IV FLUSH SCH ×3 (08:11→21:00)
[2018-01-08] MEDS: ALOSETRON 1 MG PO SCH ×2 (08:11→21:00)
[2018-01-08] MEDS: DOCUSATE SODIUM 50 MG/SENNA 8.6 MG TAB PO SCH ×2 (08:11→21:00)
[2018-01-08] MEDS: ATENOLOL 50 MG TAB PO SCH (08:11)
[2018-01-08] MEDS: SERTRALINE HCL 100 MG TAB PO SCH (08:15)
[2018-01-08 08:17] LABS: CREATININE 1.39 MG/DL (0.50-1.00)
[2018-01-08 08:24] LABS: RANDOM VANCOMYCIN 13.1 COMMENT
[2018-01-08 08:29] LABS: TROPONIN I 0.68 NG/ML (0.02-0.05)
[2018-01-08 08:42] LABS: WBC, SYNOVIAL FLUID 97000 /MM3 (0-200)
[2018-01-08] MEDS: SODIUM CHLOR 0.9% 1000 ML INJ 1,000 ML IV SCH ×2 (10:10→21:33)
--- NOTE | 2018-01-08 10:57 | HHI.PR ---
Subjective Remarks The patient was complaining of severe pain in her hip. She has been sweating a lot. She had a staph infection in her neck somewhat recently. She denies any trauma to the hip. She has not been having bowel movements. Discussed with family at the bedside. Discussed with nursing. Objective Vitals Vital Signs Date Time Temp Pulse Resp B/P (MAP) Pulse Ox O2 Delivery O2 Flow Rate FiO2 01/08/18 10:32 94 01/08/18 08:25 96 Room Air 01/08/18 08:09 97.3 118 20 113/68 (83) 95 01/08/18 07:49 93 21 01/08/18 04:32 109 01/08/18 04:00 97.5 107 20 126/59 (81) 98 01/08/18 00:03 97.5 115 115/57 (76) 97 01/07/18 22:38 98.4 115 108/72 (84) 97 01/07/18 21:08 Nasal Cannula 2.00 01/07/18 20:00 97.3 120 20 127/71 (89) 92 01/07/18 17:36 93 21 01/07/18 16:00 97.6 89 18 127/63 (84) 93 01/07/18 13:57 76 01/07/18 12:43 97.4 72 18 107/53 (71) 99 01/07/18 11:26 97 I/O 01/07/18 01/07/18 01/07/18 01/08/18 01/08/18 01/08/18 07:00 15:00 23:00 07:00 15:00 23:00 Intake Total 240 ml Balance 240 ml Intake Oral 240 ml # Voids 2 3 3 Result Diagram: 01/07/18 0321 01/08/18 0720 Imaging Last Impressions Hip Aspiration/Injection 01/07/181999 Signed Impressions: Service Date/Time: Sunday, January 07, 2018 15:44 - CONCLUSION: Uncomplicated fluoroscopic guided left hip aspiration as above. Ceasar Parikh MD Chest X-Ray 01/07/18 0000 Signed Impressions: Service Date/Time: Sunday, January 07, 2018 04:31 - CONCLUSION: 1. Cardiomegaly with mild positive fluid balance. Doug Hurtado MD Hip and Pelvis X-Ray 01/06/18 0000 Signed Impressions: Service Date/Time: Saturday, January 06, 2018 11:38 - CONCLUSION: Arthritic change at the left hip joint. Ceasar Lopez MD Hip MRI 01/06/18 0000 Signed Impressions: Service Date/Time: Saturday, January 06, 2018 12:37 - CONCLUSION: Left hip joint effusion with joint space narrowing and surrounding enhancement. This can be secondary to underlying arthritis. Some peripheral inflammatory change from effusion could cause this appearance. Infection cannot be excluded in the correct clinical situation. However, given the osteophytes, much of this may be from chronic change. The edema within the adductor muscles and distal gluteal musculature could be from strain. Ceasar Lopez MD Objective Remarks GENERAL: The patient appears uncomfortable. EYES: Extraocular motions intact. ENT: Nose without drainage NECK: Trachea midline. CARDIOVASCULAR: Regular rate and rhythm without murmur. RESPIRATORY: Clear to auscultation. Breath sounds equal bilaterally. No wheezes. GASTROINTESTINAL: Abdomen soft, non-tender, nondistended. No guarding. MUSCULOSKELETAL: Limited range of motion of left hip due to severe pain. There is no erythema or edema of the left hip. NEUROLOGICAL: Awake and alert. Normal speech. PSYCH: Mood and affect appropriate. Procedures Joint aspiration Medications and IVs Current Medications Medications (Trade) Dose Ordered Sig/Dalia Route Start Time Stop Time Status Last Admin Pharmacy Profile Note 0 ml @ 0 mls/hr UNSCH OTHER 01/06/18 12:45 Sodium Chloride 1,000 ml @ 50 mls/hr Q20H IV 01/06/18 13:00 01/09/18 09:00 Future hold 01/06/18 23:39 (NS Flush) 2 ml UNSCH PRN IV FLUSH 01/06/18 12:45 (NS Flush) 2 ml BID IV FLUSH 01/06/18 21:00 01/08/18 08:11 (Tylenol) 650 mg Q4H PRN PO 01/06/18 12:45 01/06/18 23:51 (Zofran Inj) 4 mg Q6H PRN IVP 01/06/18 12:45 (Tylenol) 650 mg Q6H PRN PO 01/06/18 12:45 (Narcan Inj) 0.4 mg UNSCH PRN IV PUSH 01/06/18 12:45 (Deidra-Colace) 1 tab BID PO 01/06/18 21:00 (Milk Of Magnesia Liq) 30 ml Q12H PRN PO 01/06/18 12:45 01/07/18 23:14 (Senokot) 17.2 mg Q12H PRN PO 01/06/18 12:45 (Dulcolax Supp) 10 mg DAILY PRN RECTAL 01/06/18 12:45 (Lactulose Liq) 30 ml DAILY PRN PO 01/06/18 12:45 (Dilaudid Pf Inj) 1 mg Q4H PRN IV 01/06/18 18:00 01/07/18 16:23 (Zoloft) 100 mg DAILY PO 01/07/18 09:00 01/08/18 08:15 Patient Own Medication PT OWN MED:(Alosetron (Lotronex... BID PO 01/06/18 21:00 (Mag-Ox) 400 mg DAILY PO 01/07/18 09:00 01/08/18 08:10 (Pravachol) 80 mg DAILY PO 01/07/18 09:00 01/08/18 08:10 (D50w (Vial) Inj) 50 ml UNSCH PRN IV PUSH 01/06/18 18:15 (Glucagon Inj) 1 mg UNSCH PRN OTHER 01/06/18 18:15 (NovoLOG SUPPLEMENTAL SCALE) 1 ACHS SLIDING SCALE SQ 01/06/18 21:00 01/07/18 21:08 (Percocet 5-325 Mg) 1 tab Q4H PRN PO 01/07/18 15:00 (Percocet 10-325 Mg) 1 tab Q4H PRN PO 01/07/18 15:00 01/08/18 08:12 (Tenormin) 50 mg DAILY PO 01/08/18 09:00 01/08/18 08:11 A/P Problem List: (1) Effusion of hip joint, left ICD Code: M25.452 - Effusion, left hip (2) History of staph infection ICD Code: Z86.19 - Personal history of other infectious and parasitic diseases Assessment and Plan Osteomyelitis/ sepsis Left hip pain, inability to ambulate, left hip effusion seen on MRI. Patient presented with leukocytosis, tachycardia, fever 101.3, source of infection likely left hip. X-ray of the left hip reviewed, no fracture. MRI of the left hip reviewed shows left hip joint effusion with joint space narrowing and surrounding enhancement. Blood cultures gram pos cocci/staph aureus. ID and orthopedic surgery consult appreciated. Joint aspirate growing staph aureus. - debridement of left hip per ortho. - continue IV vancomycin per ID. Pharmacy assisting with dosing. - pain control with a bowel regimen. - follow culture data. NSTEMI Likely demand ischemia secondary to infection. Cardiology consult appreciated. Echo with EF 50-55%, grade 1 diastolic dysfunction. - Stress test per cardiology. Acute renal failure/ rhabdo Unsure of baseline. - Continue IV fluids. - Avoid nephrotoxic agents. - Follow BMP and CPK level. Diabetes mellitus type 2 On metformin. - Monitor blood sugar. - Accu-Cheks, insulin sliding scale. DVT prophylaxis: Per Jesus Willson DO Jan 08, 2018 10:57
[2018-01-08] MEDS ORDERED: PHENYLEPH/NS 1000 MCG/10 ML SYR IV ONE (12:00)
[2018-01-08] MEDS ORDERED: ONDANSETRON HCL 4 MG/2 ML VIAL IV ONE (12:00)
[2018-01-08] MEDS ORDERED: NEOSTIGMINE 5 MG/5 ML SYRINGE IV PUSH ONE (12:00)
[2018-01-08] MEDS ORDERED: GLYCOPYRROLATE 1 MG/5 ML SYRINGE IV PUSH ONE (12:00)
[2018-01-08] MEDS ORDERED: LIDOCAINE HCL 1% PF 5 ML SYRINGE OTHER ONE (12:00)
[2018-01-08] MEDS ORDERED: ROCURONIUM INJ 50 MG/5 ML SYRINGE IV PUSH ONE (12:00)
[2018-01-08] MEDS ORDERED: ePHEDrine/NS 25 MG/5 ML SYRINGE IV ONE (12:00)
[2018-01-08] MEDS ORDERED: DEXAMETHASONE SOD PHOS 4 MG/ML VIAL IV ONE (12:00)
[2018-01-08] MEDS ORDERED: PROPOFOL 200 MG/20 ML AMP IV ONE (12:00)
[2018-01-08] MEDS ORDERED: SODIUM CHLOR 0.9% 1000 ML INJ 1,000 ML IV SCH (12:15)
[2018-01-08] MEDS ORDERED: LACTATED RINGER'S 1000 ML IV PRN (12:45)
[2018-01-08] MEDS ORDERED: SODIUM CHLORID 0.9% 500 ML IV PRN (12:45)
[2018-01-08] MEDS ORDERED: CHLORHEXIDINE GLUCONATE 2 % 1 PACK (2 CLOTHS) TOPICAL PRN (12:45)
[2018-01-08] MEDS ORDERED: POVIDONE IODINE 5% (ANTISEPSIS KIT) 4 APPLICATIONS EACH NARE PRN (12:45)
[2018-01-08] MEDS ORDERED: METOPROLOL TARTRATE 25 MG TAB PO PRN (12:45)
[2018-01-08 13:11] LABS: BICARBONATE 22.7 MEQ/L (21.0-32.0); CALCIUM 8.8 MG/DL (8.5-10.1); CREATININE 1.66 MG/DL (0.50-1.00)
[2018-01-08] MEDS ORDERED: VANCOMYCIN 1,500 MG/NS 500 ML IV ONE ×4 (14:00→20:00)
[2018-01-08] MEDS ORDERED: REGADENOSON INJ 0.4 MG/5 ML SYR ONE (14:05)
--- NOTE | 2018-01-08 16:24 | HHI.IDPN ---
Note Infectious Disease Note Notes reviewed. Patient notes pain 9.55/10 in the left hip. Just back from stress test. Afebrile. Going for I&D of the left hip today. Blood cultures - Staph aureus. Hip aspirate - Staph aureus. 72-year-old white female who was brought to the emergency department because of left hip pain. The patient and her are on vacation from [place]. She developed pain in the left hip and was evaluated at an [facility] five days ago. She was given pain medication and prednisone since it was felt that it was likely due to bursitis. However, the pain persisted and three days ago the patient's had to get a wheelchair because she had difficulty ambulating and eventually he brought her to the emergency department for evaluation. PAST MEDICAL HISTORY/PAST SURGICAL HISTORY 1. Wuuug-Suubg-Wzute syndrome. 2. Diabetes mellitus. 3. Irritable bowel syndrome. 4. 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 5. Left knee arthroscopic surgery in 1985. 6. Cholecystectomy. 7. Breast lump resection. 8. History of laser surgery of the nose. 9. 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 ALLERGIES PENICILLIN. BACTRIM. ANTIBIOTICS: Vancomycin. Current Medications Medications (Trade) Dose Ordered Sig/Dalia Route PRN Reason Start Time Stop Time Status Last Admin Dose Admin Pharmacy Profile Note 0 ml @ 0 mls/hr UNSCH OTHER 01/06/18 12:45 Sodium Chloride (NS Flush) 2 ml UNSCH PRN IV FLUSH FLUSH AFTER USING IV ACCESS 01/06/18 12:45 Sodium Chloride (NS Flush) 2 ml BID IV FLUSH 01/06/18 21:00 01/08/18 08:11 Acetaminophen (Tylenol) 650 mg Q4H PRN PO TEMP > 100.4 01/06/18 12:45 01/06/18 23:51 Ondansetron HCl (Zofran Inj) 4 mg Q6H PRN IVP NAUSEA OR VOMITING 01/06/18 12:45 Acetaminophen (Tylenol) 650 mg Q6H PRN PO PAIN SCALE 1 TO 2 01/06/18 12:45 Naloxone HCl (Narcan Inj) 0.4 mg UNSCH PRN IV PUSH SEE LABEL COMMENTS 01/06/18 12:45 Senna/Docusate Sodium (Deidra-Colace) 1 tab BID PO 01/06/18 21:00 Magnesium Hydroxide (Milk Of Magnesia Liq) 30 ml Q12H PRN PO Mild constipation 01/06/18 12:45 01/07/18 23:14 Sennosides (Senokot) 17.2 mg Q12H PRN PO Moderate constipation 01/06/18 12:45 Bisacodyl (Dulcolax Supp) 10 mg DAILY PRN RECTAL SEVERE CONSITIPATION 01/06/18 12:45 Lactulose (Lactulose Liq) 30 ml DAILY PRN PO SEVERE CONSITIPATION 01/06/18 12:45 Hydromorphone HCl (Dilaudid Pf Inj) 1 mg Q4H PRN IV BREAKTHROUGH PAIN 01/06/18 18:00 01/07/18 16:23 Sertraline HCl (Zoloft) 100 mg DAILY PO 01/07/18 09:00 01/08/18 08:15 Patient Own Medication PT OWN MED:(Alosetron (Lotronex... BID PO 01/06/18 21:00 Magnesium Oxide (Mag-Ox) 400 mg DAILY PO 01/07/18 09:00 01/08/18 08:10 Pravastatin Sodium (Pravachol) 80 mg DAILY PO 01/07/18 09:00 01/08/18 08:10 Dextrose (D50w (Vial) Inj) 50 ml UNSCH PRN IV PUSH HYPOGLYCEMIA-SEE COMMENTS 01/06/18 18:15 Glucagon (Glucagon Inj) 1 mg UNSCH PRN OTHER HYPOGLYCEMIA-SEE COMMENTS 01/06/18 18:15 Insulin Aspart (NovoLOG SUPPLEMENTAL SCALE) 1 ACHS SLIDING SCALE SQ 01/06/18 21:00 01/07/18 21:08 Oxycodone/ Acetaminophen (Percocet 5-325 Mg) 1 tab Q4H PRN PO PAIN SCALE 3 TO 5 01/07/18 15:00 Atenolol (Tenormin) 50 mg DAILY PO 01/08/18 09:00 01/08/18 08:11 Oxycodone HCl (Roxicodone) 15 mg Q4H PRN PO pain 6-10 01/08/18 10:45 01/08/18 15:54 Sodium Chloride 1,000 ml @ 50 mls/hr Q20H IV 01/08/18 12:15 2/27/18 12:15 Lactated Ringer's 1,000 ml @ 30 mls/hr Q24H PRN IV SEE LABEL COMMENTS 01/08/18 12:45 01/11/18 12:44 Sodium Chloride 500 ml @ 30 mls/hr [id number] PRN IV SEE LABEL COMMENTS 01/08/18 12:45 01/11/18 12:44 Metoprolol Tartrate (Lopressor) 25 mg [employer] PRN PO SEE LABEL COMMENTS 01/08/18 12:45 01/11/18 12:44 Povidone Iodine (Betadine 5% Antisepsis Kit) 1 applic [employer] PRN EACH NARE SEE LABEL COMMENTS 01/08/18 12:45 01/11/18 12:44 Chlorhexidine Gluconate (Chlorhexidine 2% Cloth) 3 pack [employer] PRN TOPICAL SEE LABEL COMMENTS 01/08/18 12:45 01/11/18 12:44 Vancomycin HCl 1500 mg/Sodium Chloride 515 ml @ 257.5 mls/ hr ONCE ONCE IV 01/08/18 20:00 01/08/18 21:59 OBJ: Vital Signs Date Time Temp Pulse Resp B/P (MAP) Pulse Ox O2 Delivery O2 Flow Rate FiO2 01/08/18 15:59 97.2 70 20 108/70 (83) 90 01/08/18 12:01 97.3 69 20 93/51 (65) 96 01/08/18 10:32 94 01/08/18 08:25 96 Room Air 01/08/18 08:09 97.3 118 20 113/68 (83) 95 01/08/18 07:49 93 21 01/08/18 04:32 109 01/08/18 04:00 97.5 107 20 126/59 (81) 98 01/08/18 00:03 97.5 115 115/57 (76) 97 01/07/18 22:38 98.4 115 108/72 (84) 97 01/07/18 21:08 Nasal Cannula 2.00 01/07/18 20:00 97.3 120 20 127/71 (89) 92 01/07/18 17:36 93 21 Laboratory Tests Test 01/07/18 03:21 White Blood Count 15.4 TH/MM3 Red Blood Count 3.86 MIL/MM3 Hemoglobin 10.6 GM/DL Hematocrit 31.8 % Mean Corpuscular Volume 82.3 FL Mean Corpuscular Hemoglobin 27.4 PG Mean Corpuscular Hemoglobin Concent 33.3 % Red Cell Distribution Width 16.1 % Platelet Count 235 TH/MM3 Mean Platelet Volume 7.9 FL Neutrophils (%) (Auto) 90.7 % Lymphocytes (%) (Auto) 3.9 % Monocytes (%) (Auto) 5.3 % Eosinophils (%) (Auto) 0.0 % Basophils (%) (Auto) 0.1 % Neutrophils # (Auto) 14.0 TH/MM3 Lymphocytes # (Auto) 0.6 TH/MM3 Monocytes # (Auto) 0.8 TH/MM3 Eosinophils # (Auto) 0.0 TH/MM3 Basophils # (Auto) 0.0 TH/MM3 CBC Comment AUTO DIFF Differential Comment AUTO DIFF CONFIRMED Toxic Vacuolation PRESENT Platelet Estimate NORMAL Platelet Morphology Comment NORMAL Erythrocyte Sedimentation Rate 54 mm/hr Laboratory Tests Test 01/07/18 03:21 01/07/18 06:30 01/08/18 07:20 01/08/18 12:23 Blood Urea Nitrogen 22 MG/DL 35 MG/DL Creatinine 1.29 MG/DL 1.39 MG/DL 1.66 MG/DL Random Glucose 226 MG/DL 203 MG/DL Calcium Level 8.6 MG/DL 8.8 MG/DL Magnesium Level 1.9 MG/DL Sodium Level 130 MEQ/L 132 MEQ/L Potassium Level 5.2 MEQ/L 5.4 MEQ/L Chloride Level 98 MEQ/L 101 MEQ/L Carbon Dioxide Level 21.8 MEQ/L 22.7 MEQ/L Anion Gap 10 MEQ/L 8 MEQ/L Estimat Glomerular Filtration Rate 41 ML/MIN 37 ML/MIN 31 ML/MIN Total Creatine Kinase 1329 U/L 179 U/L Creatine Kinase MB 13.8 NG/ML Creatine Kinase MB % 1.0 % Troponin I 2.00 NG/ML 0.68 NG/ML B-Type Natriuretic Peptide 1085 PG/ML C-Reactive Protein 27.00 MG/DL Microbiology Date/Time Source Procedure Growth Status 01/06/18 10:45 Blood Peripheral Aerobic Blood Culture - Preliminary Staphylococcus Aureus Resulted 01/06/18 10:45 Anaerobic Blood Culture - Preliminary Staphylococcus Aureus Resulted 01/06/18 10:40 Blood Peripheral Aerobic Blood Culture - Preliminary Staphylococcus Aureus Resulted 01/06/18 10:40 Anaerobic Blood Culture - Preliminary Staphylococcus Aureus Resulted 01/07/18 15:56 Fluid Other Gram Stain - Final Resulted 01/07/18 15:56 Body Fluid Culture - Preliminary Staphylococcus Aureus Resulted IMAGING: Hip Aspiration/Injection 01/07/181999 Signed Impressions: Service Date/Time: Sunday, January 07, 2018 15:44 - CONCLUSION: Uncomplicated fluoroscopic guided left hip aspiration as above. Ceasar Parikh MD Chest X-Ray 01/07/18 0000 Signed Impressions: Service Date/Time: Sunday, January 07, 2018 04:31 - CONCLUSION: 1. Cardiomegaly with mild positive fluid balance. Doug Hurtado MD Hip and Pelvis X-Ray 01/06/18 0000 Signed Impressions: Service Date/Time: Saturday, January 06, 2018 11:38 - CONCLUSION: Arthritic change at the left hip joint. Ceasar Lopez MD Hip MRI 01/06/18 0000 Signed Impressions: Service Date/Time: Saturday, January 06, 2018 12:37 - CONCLUSION: Left hip joint effusion with joint space narrowing and surrounding enhancement. This can be secondary to underlying arthritis. Some peripheral inflammatory change from effusion could cause this appearance. Infection cannot be excluded in the correct clinical situation. However, given the osteophytes, much of this may be from chronic change. The edema within the adductor muscles and distal gluteal musculature could be from strain. Ceasar Lopez MD PHYSICAL EXAMINATION: GENERAL: Alert and oriented. HEENT: Extraocular movements grossly intact, pupils reactive to light. No icterus. Oropharynx has moist mucosa. Neck: Supple without adenopathy. Lungs: Clear breath sounds. Heart: Regular S1-S2. No murmurs, rubs, or gallops. Abdomen: Bowel sounds present, soft, nontender. EXTREMITIES: No edema, no erythema. SKIN: No rash. NEUROLOGIC: No gross focal findings. PSYCHIATRIC: Calm and cooperative. IMPRESSION 1. Septic arthritis of the left hip - Staph aureus. 2. Bacteremia - staph aureus. 3. Leukocytosis. 4. Acute on Chronic kidney disease. Worsening. RECOMMENDATIONS 1. Stop Vancomycin because of the worsening renal function. 2. Start Cubicin IV. Monitor the cultures for sensitivity of the Staph. 3. Monitor the temperature 4. Follow renal function. 5. Renal consult for worsening renal function. Patient only has one kidney. D/W at bedside. D/W RN. I also related to OR that I do not want her to be given Vancomycin for the surgery today. Rahul Aguirre MD Jan 08, 2018 16:24
--- NOTE | 2018-01-08 16:40 | RADRPT ---
EXAM DATE/TIME: 01/08/2018 13:56 [place] COMPARISON: CHEST SINGLE AP, January 07, 2018, 4:31. INDICATIONS : Shortness of breath for one day. Atrial fibrillation. DOSE: 26.8 mCi Tc99m Myoview at stress. 8.5 mCi Tc99m Myoview at rest. 0.4 mg Lexiscan STRESS SYMPTOMS: Short of breath. EJECTION FRACTION: 44% MEDICAL HISTORY : Hypertension. Diabetes mellitus type 2. Wpziw-Aiffo-Xfnlj disorder and renal cancer. SURGICAL HISTORY : Nephrectomy, left. ENCOUNTER: Initial ACUITY: 1 day PAIN SCALE: 0/10 LOCATION: chest TECHNIQUE: The patient underwent pharmacologic stress with infusion of prescribed dose. Continuous ECG tracing was monitored during stress. Gated SPECT imaging was performed after stress and conventional SPECT i maging was performed at rest. The examination was performed on a SPECT/CT scanner, both attenuation and non-corrected datasets were reviewed. FINDINGS: DISTRIBUTION: The maximum perfused segment at stress is in the anterolateral wall. PERFUSION STUDY: The pattern of perfusion at stress is within normal limits. No fixed or reversible perfusion defect i s identified. GATED STUDY: There is mild global hypokinesia. No focal wall motion abnormality is identified. CONCLUSION: 1. No fixed or reversible perfusion defect is identified. 2. Global hypokinesia with reduced ejection fraction calculated at 44%. RISK CATEGORY: Intermediate (1-3% Annual Mortality Rate) Ceasar Oh MD on January 08, 2018 at 16:27 Board Certified Radiologist. This report was verified electronically.
--- NOTE | 2018-01-08 17:41 | PD.ORT.PN ---
Subjective Subjective Remarks Patient is awake alert. She is seen preoperatively in the operating room holding area. Her is at the bedside. Her Gram stain was positive and cultures show staph aureus. She presents for I and D. Objective Vitals Vital Signs Date Time Temp Pulse Resp B/P (MAP) Pulse Ox O2 Delivery O2 Flow Rate FiO2 01/08/18 15:59 97.2 70 20 108/70 (83) 90 01/08/18 12:01 97.3 69 20 93/51 (65) 96 01/08/18 10:32 94 01/08/18 08:25 96 Room Air 01/08/18 08:09 97.3 118 20 113/68 (83) 95 01/08/18 07:49 93 21 01/08/18 04:32 109 01/08/18 04:00 97.5 107 20 126/59 (81) 98 01/08/18 00:03 97.5 115 115/57 (76) 97 01/07/18 22:38 98.4 115 108/72 (84) 97 01/07/18 21:08 Nasal Cannula 2.00 01/07/18 20:00 97.3 120 20 127/71 (89) 92 I/O 01/07/18 01/07/18 01/07/18 01/08/18 01/08/18 01/08/18 07:00 15:00 23:00 07:00 15:00 23:00 Intake Total 240 ml Balance 240 ml Intake Oral 240 ml # Voids 2 3 3 Result Diagram: 01/07/18 0321 01/08/18 1223 Other Results Microbiology Date/Time Source Procedure Growth Status 01/06/18 10:45 Blood Peripheral Aerobic Blood Culture - Preliminary Staphylococcus Aureus Resulted 01/06/18 10:45 Anaerobic Blood Culture - Preliminary Staphylococcus Aureus Resulted 01/07/18 15:56 Fluid Other Gram Stain - Final Resulted 01/07/18 15:56 Body Fluid Culture - Preliminary Staphylococcus Aureus Resulted Imaging Last 24 hours Impressions Hip Aspiration/Injection 01/07/181999 Signed Impressions: Service Date/Time: Sunday, January 07, 2018 15:44 - CONCLUSION: Uncomplicated fluoroscopic guided left hip aspiration as above. Ceasar Parikh MD Objective Remarks Left hip: No surrounding erythema or cellulitic changes noted, any attempts at range of motion of the left hip elicits severe left hip pain, full motion of knee and ankle, no calf pain, negative Homans sign, neurovascularly intact Assessment & Plan Problem List: (1) Septic arthritis of hip ICD Codes: M00.9 - Pyogenic arthritis, unspecified Qualifiers: Qualified Codes: M00.052 - Staphylococcal arthritis, left hip Assessment and Plan The findings were discussed with the patient and her . Recommendations are for irrigation debridement of the left hip. The nature of the procedure, the risks, expected benefits, as well as the postoperative expectations have been discussed with him in detail. In addition, the alternatives to treatment and risks of same were discussed. The possibility of the procedure not improving her symptomatology was discussed and dispensed with regards to the underlying osteoarthritis involving the hip. In addition, the possible need for further surgical management for persistent infection was discussed. They have read and signed consent forms all questions regarding same have been answered. Navi Moran MD Jan 08, 2018 17:41
[2018-01-08] MEDS ORDERED: NEOMYCIN/POLYMYXIN 1 ML G.U. IRRIGANT ONE (17:45)
[2018-01-08] MEDS ORDERED: ceFAZolin INJ 1,000 MG VIAL ONE (17:57)
[2018-01-08] MEDS ORDERED: DAPTOmycin INJ 320 MG in SODIUM CHLORIDE 0.9% INJ 100 ML IV SCH (18:00)
[2018-01-08] MEDS: LACTATED RINGER'S 1000 ML INJ 1,000 ML IV SCH (18:46)
--- NOTE | 2018-01-08 18:46 | PD.OP ---
cc: Navi Moran MD Operative Report Date of Surgery: Jan 08, 2018 Preoperative Diagnosis: (1) Septic arthritis of hip Postoperative Diagnosis: (1) Septic arthritis of hip Procedure: Incision and drainage left hip Anesthesia: Gen. Surgeon: Navi Moran Body Component Engineer(s): OR staff Operation and Findings: The patient was taken to the operative suite and after undergoing an adequate level of general anesthesia was placed in the lateral decubitus position on the operating table. Her preoperative antibiotics were held for cultures. The left lower extremity was then prepped and draped in usual sterile fashion with alcohol and Hibiclens. Incision was made over the greater trochanter. This was carried down through skin and subcutaneous tense tissue with a knife. Hemostasis was obtained with cautery. The iliotibial band was identified distally and the gluteus sherie fascia proximate. These were split longitudinally. Over the posterior aspect of the joint the short external rotators were released up to the level of the piriformis. The sciatic nerve was palpable in the depths of the wound and avoided. The capsule was then incised and copious amounts of purulent material evacuated. Cultures were taken. The wound was then thoroughly irrigated with pulse lavage. irrigant was utilized secondary to her penicillin allergy and unknown reaction. The capsule was left open. Hemovac drains were left in place. Incision was then closed in layers utilizing #1 Vicryl suture on the iliotibial band and gluteus sherie fascia, 0 Vicryl suture on the deep tissue, 2-0 Vicryl suture in subcutaneous tense tissue and zachary on the skin. Sterile dressings were applied, patient awakened, transferred to the hospital bed and taken to the recovery room in stable condition. Estimate blood loss: Less than 50 cc Complications: None Navi Moran MD Jan 08, 2018 18:46
--- NOTE | 2018-01-08 18:50 | PD.CONS ---
HPI Service Nephrology Consult Requested By Dr. Walton Reason for Consult Acute renal failure Primary Care Physician Unknown History of Present Illness Patient is a 72-year-old white female with history of diabetes, colon cancer status post right colectomy, Left nephrectomy for carcinoid tumor. [place] in the park and did well however she developed left hip pain 5 days ago she went to urgent care and she was given pain medication and prednisone, her pain did not subside and then she has to come to the emergency as she could not bear weight, MRI of the shoulder fluids as surrounding left hip joint, she has elevated white cell count and no fever as well, aspiration of the joint showed staph aureus infection, she was given vancomycin and currently on daptomycin and her creatinine is 1.7 Review of Systems Constitutional: COMPLAINS OF: Fatigue, Fever Musculoskeletal: COMPLAINS OF: Joint pain, Muscle aches, Stiffness, Joint Swelling Neurologic: COMPLAINS OF: Abnormal gait Past Family Social History Allergies: Coded Allergies: Penicillins (Verified Allergy, Mild, 01/06/18) sulfamethoxazole (Verified Allergy, Mild, 01/06/18) trimethoprim (Verified Allergy, Mild, 01/06/18) Past Medical History Xuasc-Wgzpe-Ufosn, DM2, Irritable bowel, right colectomy secondary to adenocarcinoma of cecum 2006, 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 Ferny Gimenez September 2014 laser surgery to stop nasal bleeding Dr. Ramirez September 2015 cataract surgery both eyes October 27, 2016 removal of left kidney and carcinoid tumor Dr. Maradiaga March 07, 2017 surgical biopsy of staph infection in neck Dr. Jiménez, patient says stomach infection was not MRSA Reported Medications Reported Meds & Active Scripts Active Reported Magnesium Oxide 500 Mg Tab 500 Mg PO DAILY Calcium 600 with Vitamin D (Calcium Carbonate-Cholecalciferol) 600-400 mg-Unit Tab 1 Tab PO DAILY Centrum Silver Women Tablet (Multivit-Min/Iron/Folic/Lutein) 8 Mg Iron-400 Mcg- 300 Mcg Tablet 1 B Complex (B-Complex Vitamins) 1 Cap 1 Cap PO DAILY Glucosamine-Chondroitin 500-400 Mg Tab 1 Tab PO DAILY Niacin 500 Mg Tab 500 Mg PO DAILY Lotronex (Alosetron HCl) 1 Mg Tab 1 Mg PO BID Glucophage (Metformin HCl) 1,000 Mg Tab 1,000 Mg PO BIDPC Zoloft (Sertraline HCl) 100 Mg Tab 100 Mg PO DAILY Atenolol 25 Mg Tab 25 Mg PO DAILY Zocor (Simvastatin) 40 Mg Tab 40 Mg PO DAILY Active Ordered Medications Current Medications Medications (Trade) Dose Ordered Sig/Dalia Route Start Time Stop Time Status Last Admin (NS Flush) 2 ml UNSCH PRN IV FLUSH 01/06/18 12:45 (NS Flush) 2 ml BID IV FLUSH 01/06/18 21:00 01/08/18 08:11 (Tylenol) 650 mg Q4H PRN PO 01/06/18 12:45 01/06/18 23:51 (Zofran Inj) 4 mg Q6H PRN IVP 01/06/18 12:45 (Tylenol) 650 mg Q6H PRN PO 01/06/18 12:45 (Narcan Inj) 0.4 mg UNSCH PRN IV PUSH 01/06/18 12:45 (Deidra-Colace) 1 tab BID PO 01/06/18 21:00 (Milk Of Magnesia Liq) 30 ml Q12H PRN PO 01/06/18 12:45 01/07/18 23:14 (Senokot) 17.2 mg Q12H PRN PO 01/06/18 12:45 (Dulcolax Supp) 10 mg DAILY PRN RECTAL 01/06/18 12:45 (Lactulose Liq) 30 ml DAILY PRN PO 01/06/18 12:45 (Dilaudid Pf Inj) 1 mg Q4H PRN IV 01/06/18 18:00 01/07/18 16:23 (Zoloft) 100 mg DAILY PO 01/07/18 09:00 01/08/18 08:15 Patient Own Medication PT OWN MED:(Alosetron (Lotronex... BID PO 01/06/18 21:00 (Mag-Ox) 400 mg DAILY PO 01/07/18 09:00 01/08/18 08:10 (Pravachol) 80 mg DAILY PO 01/07/18 09:00 01/08/18 08:10 (D50w (Vial) Inj) 50 ml UNSCH PRN IV PUSH 01/06/18 18:15 (Glucagon Inj) 1 mg UNSCH PRN OTHER 01/06/18 18:15 (NovoLOG SUPPLEMENTAL SCALE) 1 ACHS SLIDING SCALE SQ 01/06/18 21:00 01/07/18 21:08 (Percocet 5-325 Mg) 1 tab Q4H PRN PO 01/07/18 15:00 (Tenormin) 50 mg DAILY PO 01/08/18 09:00 01/08/18 08:11 (Roxicodone) 15 mg Q4H PRN PO 01/08/18 10:45 01/08/18 15:54 Sodium Chloride 1,000 ml @ 50 mls/hr Q20H IV 01/08/18 12:15 01/08/18 12:15 Lactated Ringer's 1,000 ml @ 30 mls/hr Q24H PRN IV 01/08/18 12:45 01/11/18 12:44 Sodium Chloride 500 ml @ 30 mls/hr [id number] PRN IV 01/08/18 12:45 01/11/18 12:44 (Lopressor) 25 mg [employer] PRN PO 01/08/18 12:45 01/11/18 12:44 (Betadine 5% Antisepsis Kit) 1 applic [employer]ICA [employer] PRN EACH NARE 01/08/18 12:45 01/11/18 12:44 (Chlorhexidine 2% Cloth) 3 pack [employer] PRN TOPICAL 01/08/18 12:45 01/11/18 12:44 Daptomycin 320 mg/ Sodium Chloride 100 ml @ 200 mls/hr Q24H IV 01/08/18 18:00 Family History Noncontributory Social History Denies Physical Exam Vital Signs Vital Signs Date Time Temp Pulse Resp B/P (MAP) Pulse Ox O2 Delivery O2 Flow Rate FiO2 01/08/18 15:59 97.2 70 20 108/70 (83) 90 01/08/18 12:01 97.3 69 20 93/51 (65) 96 01/08/18 10:32 94 01/08/18 08:25 96 Room Air 01/08/18 08:09 97.3 118 20 113/68 (83) 95 01/08/18 07:49 93 21 01/08/18 04:32 109 01/08/18 04:00 97.5 107 20 126/59 (81) 98 01/08/18 00:03 97.5 115 115/57 (76) 97 01/07/18 22:38 98.4 115 108/72 (84) 97 01/07/18 21:08 Nasal Cannula 2.00 01/07/18 20:00 97.3 120 20 127/71 (89) 92 Physical Exam GENERAL: Well-nourished, well-developed patient. SKIN: Warm and dry. HEAD: Normocephalic. EYES: No scleral icterus. No injection or drainage. NECK: Supple, trachea midline. No JVD or lymphadenopathy. CARDIOVASCULAR: Regular rate and rhythm without murmurs, gallops, or rubs. RESPIRATORY: Breath sounds equal bilaterally. No accessory muscle use. GASTROINTESTINAL: Abdomen soft, non-tender, nondistended. EXTREMITIES: No cyanosis, left hip pain NEUROLOGICAL: obtunded with sedation Laboratory Laboratory Tests Test 01/08/18 07:20 01/08/18 12:23 Creatinine 1.39 1.66 Estimat Glomerular Filtration Rate 37 31 Troponin I 0.68 Random Vancomycin Level 13.1 Blood Urea Nitrogen 35 Random Glucose 203 Calcium Level 8.8 Sodium Level 132 Potassium Level 5.4 Chloride Level 101 Carbon Dioxide Level 22.7 Anion Gap 8 Total Creatine Kinase 179 Date/Time Source Procedure Growth Status 01/06/18 10:45 Blood Peripheral Aerobic Blood Culture - Preliminary Staphylococcus Aureus Resulted 01/06/18 10:45 Anaerobic Blood Culture - Preliminary Staphylococcus Aureus Resulted 01/07/18 15:56 Fluid Other Gram Stain - Final Resulted 01/07/18 15:56 Body Fluid Culture - Preliminary Staphylococcus Aureus Resulted Result Diagram: 01/07/18 0321 01/08/18 1223 Imaging Last Impressions Hip Aspiration/Injection 01/07/181999 Signed Impressions: Service Date/Time: Sunday, January 07, 2018 15:44 - CONCLUSION: Uncomplicated fluoroscopic guided left hip aspiration as above. Ceasar Parikh MD Chest X-Ray 01/07/18 0000 Signed Impressions: Service Date/Time: Sunday, January 07, 2018 04:31 - CONCLUSION: 1. Cardiomegaly with mild positive fluid balance. Doug Hurtado MD Hip and Pelvis X-Ray 01/06/18 0000 Signed Impressions: Service Date/Time: Saturday, January 06, 2018 11:38 - CONCLUSION: Arthritic change at the left hip joint. Ceasar Lopez MD Hip MRI 01/06/18 0000 Signed Impressions: Service Date/Time: Saturday, January 06, 2018 12:37 - CONCLUSION: Left hip joint effusion with joint space narrowing and surrounding enhancement. This can be secondary to underlying arthritis. Some peripheral inflammatory change from effusion could cause this appearance. Infection cannot be excluded in the correct clinical situation. However, given the osteophytes, much of this may be from chronic change. The edema within the adductor muscles and distal gluteal musculature could be from strain. Ceasar Lopez MD Assessment and Plan Problem List: (1) Acute renal failure ICD Codes: N17.9 - Acute kidney failure, unspecified Plan: This is likely due to sepsis with staph aureus infection, patient received vancomycin as well, we will wait for further test results ultrasound of the kidney Agree with IV fluid NS 100 cc an hour Avoid nephrotoxins Avoid nonsteroidal anti-inflammatory drugs Follow BMP (2) Septic arthritis of hip ICD Codes: M00.9 - Pyogenic arthritis, unspecified Plan: On daptomycin (3) Effusion of hip joint, left ICD Codes: M25.452 - Effusion, left hip Plan: Cultures growing staph aureus Problem Qualifiers (1) Septic arthritis of hip: Qualified Codes: M00.052 - Staphylococcal arthritis, left hip Isadora Rosario MD Jan 08, 2018 18:50
[2018-01-08] MEDS ORDERED: POVIDONE IODINE 10% SOLN 118 ML BOTTLE TOPICAL PRN (19:00)
[2018-01-08] MEDS ORDERED: SODIUM CHLORIDE 0.9% FLUSH 10 ML FLUSH IV FLUSH PRN (19:00)
[2018-01-08] MEDS ORDERED: diphenhydrAMINE HCL 25 MG CAP PO PRN (19:00)
[2018-01-08] MEDS ORDERED: DO NOT ADM ANY ANTICOAGULANT DRUGS PRN (19:04)
--- NOTE | 2018-01-08 21:40 | PD.CONS ---
HPI Service Critical Care Medicine Consult Requested By Primary Care Physician Unknown History of Present Illness 72-year-old female with past medical history of Arldr-Mesty-Evhht, diabetes mellitus type 2, Irritable bowel syndrome, right colectomy secondary to adenocarcinoma of cecum 2006, carcinoid tumor s/p left nephrectomy 10/2016 and now cancer free since 2015 admitted for an evaluation of complaints of left hip pain for 3 days. Said she went to urgent care and they thought it was bursitis and gave her prednisone and tramadol. She was diagnosed with septic arthritis and was taken emergently to operating room for I&D and washout. Review of Systems Constitutional: DENIES: Diaphoretic episodes, Fatigue, Fever, Weight gain, Weight loss, Chills, Dizziness, Change in appetite, Night Sweats Endocrine: DENIES: Abnorml menstrual pattern, Heat/cold intolerance, Polydipsia , Polyuria, Polyphagia Eyes: DENIES: Blurred vision, Diplopia, Eye inflammation, Eye pain, Vision loss , Photosensitivity, Double Vision Ears, nose, mouth, throat: DENIES: Tinnitus, Hearing loss, Vertigo, Nasal discharge, Oral lesions, Throat pain, Hoarseness, Ear Pain, Running Nose, Epistaxis, Sinus Pain, Toothache, Odynophagia Respiratory: DENIES: Apneas, Cough, Snoring, Wheezing, Hemoptysis, Sputum production, Shortness of breath Cardiovascular: DENIES: Chest pain, Palpitations, Syncope, Dyspnea on Exertion , PND, Lower Extremity Edema, Orthopnea, Claudication Gastrointestinal: DENIES: Abdominal pain, Black stools, Bloody stools, Constipation, Diarrhea, Nausea, Vomiting, Difficulty Swallowing, Anorexia Genitourinary: DENIES: Abnormal vaginal bleeding, Dysmenorrhea, Dyspareunia, Sexual dysfunction, Urinary frequency, Urinary incontinence, Urgency, Hematuria , Dysuria, Nocturia, Vaginal discharge Musculoskeletal: COMPLAINS OF: Joint pain, Muscle aches, Stiffness, Joint Swelling, DENIES: Back pain, Neck pain Integumentary: DENIES: Abnormal pigmentation, Pruritus, Rash, Nail changes, Breast masses, Breast skin changes, Nipple discharge Hematologic/lymphatic: DENIES: Bruising, Lymphadenopathy Immunologic/allergic: DENIES: Eczema, Urticaria Neurologic: COMPLAINS OF: Abnormal gait, DENIES: Headache, Localized weakness, Paresthesias, Seizures, Speech Problems, Tremor, Poor Balance Psychiatric: DENIES: Anxiety, Confusion, Mood changes, Depression, Hallucinations, Agitation, Suicidal Ideation, Homicidal Ideation, Delusions Past Family Social History Allergies: Coded Allergies: Penicillins (Verified Allergy, Mild, 01/06/18) sulfamethoxazole (Verified Allergy, Mild, 01/06/18) trimethoprim (Verified Allergy, Mild, 01/06/18) Past Medical History Soydv-Iyawc-Tosji, DM2, Irritable bowel, right colectomy secondary to adenocarcinoma of cecum 2006, carcinoid tumor s/p left nephrectomy 10/2016 and now cancer free since 2015 Past Surgical History right colectomy secondary to adenocarcinoma of cecum 2006, carcinoid tumor s/p left nephrectomy 10/2016 tonsillectomy February 1986 arthroscopic surgery of left knee to remove torn cartilage May 1988 emergent cholecystectomy with infection in bile duct May 1989 deviated septum repaired September 2003 surgery to remove lump in right breast - benign June 2004, May 2005, June 2006, August 2007, January 2010, April 2012 laser nose surgery at [place] and [place], [place] Dr. 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 Ferny Gimenez September 2014 laser surgery to stop nasal bleeding Dr. Ramirez September 2015 cataract surgery both eyes October 27, 2016 removal of left kidney and carcinoid tumor Dr. Maradiaga March 07, 2017 surgical biopsy of staph infection in neck Dr. Jiménez, patient says stomach infection was not MRSA Reported Medications Reported Meds & Active Scripts Active Reported Magnesium Oxide 500 Mg Tab 500 Mg PO DAILY Calcium 600 with Vitamin D (Calcium Carbonate-Cholecalciferol) 600-400 mg-Unit Tab 1 Tab PO DAILY Centrum Silver Women Tablet (Multivit-Min/Iron/Folic/Lutein) 8 Mg Iron-400 Mcg- 300 Mcg Tablet 1 B Complex (B-Complex Vitamins) 1 Cap 1 Cap PO DAILY Glucosamine-Chondroitin 500-400 Mg Tab 1 Tab PO DAILY Niacin 500 Mg Tab 500 Mg PO DAILY Lotronex (Alosetron HCl) 1 Mg Tab 1 Mg PO BID Glucophage (Metformin HCl) 1,000 Mg Tab 1,000 Mg PO BIDPC Zoloft (Sertraline HCl) 100 Mg Tab 100 Mg PO DAILY Atenolol 25 Mg Tab 25 Mg PO DAILY Zocor (Simvastatin) 40 Mg Tab 40 Mg PO DAILY Active Ordered Medications Current Medications Medications (Trade) Dose Ordered Sig/Dalia Route PRN Reason Start Time Stop Time Status Last Admin Dose Admin Sodium Chloride (NS Flush) 2 ml UNSCH PRN IV FLUSH FLUSH AFTER USING IV ACCESS 01/06/18 12:45 Sodium Chloride (NS Flush) 2 ml BID IV FLUSH 01/06/18 21:00 01/08/18 21:00 Acetaminophen (Tylenol) 650 mg Q4H PRN PO TEMP > 100.4 01/06/18 12:45 01/06/18 23:51 Ondansetron HCl (Zofran Inj) 4 mg Q6H PRN IVP NAUSEA OR VOMITING 01/06/18 12:45 Acetaminophen (Tylenol) 650 mg Q6H PRN PO PAIN SCALE 1 TO 2 01/06/18 12:45 Naloxone HCl (Narcan Inj) 0.4 mg UNSCH PRN IV PUSH SEE LABEL COMMENTS 01/06/18 12:45 Senna/Docusate Sodium (Deidra-Colace) 1 tab BID PO 01/06/18 21:00 Magnesium Hydroxide (Milk Of Magnesia Liq) 30 ml Q12H PRN PO Mild constipation 01/06/18 12:45 01/07/18 23:14 Sennosides (Senokot) 17.2 mg Q12H PRN PO Moderate constipation 01/06/18 12:45 Bisacodyl (Dulcolax Supp) 10 mg DAILY PRN RECTAL SEVERE CONSITIPATION 01/06/18 12:45 Lactulose (Lactulose Liq) 30 ml DAILY PRN PO SEVERE CONSITIPATION 01/06/18 12:45 Hydromorphone HCl (Dilaudid Pf Inj) 1 mg Q4H PRN IV BREAKTHROUGH PAIN 01/06/18 18:00 01/07/18 16:23 Sertraline HCl (Zoloft) 100 mg DAILY PO 01/07/18 09:00 01/08/18 08:15 Patient Own Medication PT OWN MED:(Alosetron (Lotronex... BID PO 01/06/18 21:00 Magnesium Oxide (Mag-Ox) 400 mg DAILY PO 01/07/18 09:00 01/08/18 08:10 Pravastatin Sodium (Pravachol) 80 mg DAILY PO 01/07/18 09:00 01/08/18 08:10 Dextrose (D50w (Vial) Inj) 50 ml UNSCH PRN IV PUSH HYPOGLYCEMIA-SEE COMMENTS 01/06/18 18:15 Glucagon (Glucagon Inj) 1 mg UNSCH PRN OTHER HYPOGLYCEMIA-SEE COMMENTS 01/06/18 18:15 Insulin Aspart (NovoLOG SUPPLEMENTAL SCALE) 1 ACHS SLIDING SCALE SQ 01/06/18 21:00 01/07/18 21:08 Oxycodone/ Acetaminophen (Percocet 5-325 Mg) 1 tab Q4H PRN PO PAIN SCALE 3 TO 5 01/07/18 15:00 Atenolol (Tenormin) 50 mg DAILY PO 01/08/18 09:00 01/08/18 08:11 Oxycodone HCl (Roxicodone) 15 mg Q4H PRN PO pain 6-10 01/08/18 10:45 01/08/18 15:54 Povidone Iodine (Betadine 5% Antisepsis Kit) 1 applic FARM EQUIPMENT ENGINEER PRN EACH NARE SEE LABEL COMMENTS 01/08/18 12:45 01/11/18 12:44 Chlorhexidine Gluconate (Chlorhexidine 2% Cloth) 3 pack FARM EQUIPMENT ENGINEER PRN TOPICAL SEE LABEL COMMENTS 01/08/18 12:45 01/11/18 12:44 Daptomycin 320 mg/ Sodium Chloride 100 ml @ 200 mls/hr Q24H IV 01/08/18 18:00 01/08/18 18:21 Lactated Ringer's 1,000 ml @ 100 mls/hr Q10H IV 01/08/18 18:46 Sodium Chloride (NS Flush) 2 ml UNSCH PRN IV FLUSH FLUSH AFTER USING IV ACCESS 01/08/18 19:00 Sodium Chloride (NS Flush) 2 ml BID IV FLUSH 01/08/18 21:00 Enoxaparin Sodium (Lovenox Inj) 30 mg Q24H SQ 01/09/18 07:00 Diphenhydramine HCl (Benadryl) 25 mg Q6H PRN PO ITCHING 01/08/18 19:00 Povidone Iodine (Betadine 10% Top Soln) 30 applic UNSCH X1 PRN TOPICAL WOUND CARE 01/08/18 19:00 01/10/18 18:59 Miscellaneous Information ALL NURSING DEPARTME... UNSCH PRN .XX SEE LABEL COMMENTS 01/08/18 19:04 01/09/18 19:03 Sodium Chloride 1,000 ml @ 100 mls/hr Q10H IV 01/08/18 19:30 01/08/18 21:33 Family History No history of cancer in family Social History Denies alcohol use, illicit drug use or tobacco use Physical Exam Vital Signs Vital Signs Date Time Temp Pulse Resp B/P (MAP) Pulse Ox O2 Delivery O2 Flow Rate FiO2 01/08/18 20:57 97.6 65 20 128/66 (86) 97 01/08/18 20:35 63 8 109/53 (71) 95 Nasal Cannula 4 01/08/18 20:15 66 8 107/53 (71) 94 Nasal Cannula 4 01/08/18 20:00 67 8 119/58 (78) 95 Nasal Cannula 4 01/08/18 19:45 67 8 119/57 (77) 96 Nasal Cannula 4 01/08/18 19:30 67 8 114/55 (74) 96 Nasal Cannula 8 01/08/18 19:15 65 8 119/55 (76) 96 Nasal Cannula 8 01/08/18 18:59 98.6 69 8 129/61 (83) 96 Nasal Cannula 8 01/08/18 15:59 97.2 70 20 108/70 (83) 90 01/08/18 12:01 97.3 69 20 93/51 (65) 96 01/08/18 10:32 94 01/08/18 08:25 96 Room Air 01/08/18 08:09 97.3 118 20 113/68 (83) 95 01/08/18 07:49 93 21 01/08/18 04:32 109 01/08/18 04:00 97.5 107 20 126/59 (81) 98 01/08/18 00:03 97.5 115 115/57 (76) 97 01/07/18 22:38 98.4 115 108/72 (84) 97 Physical Exam GENERAL: Well-nourished, well-developed patient. SKIN: Warm and dry. HEAD: Normocephalic. EYES: No scleral icterus. No injection or drainage. NECK: Supple, trachea midline. No JVD or lymphadenopathy. CARDIOVASCULAR: Regular rate and rhythm without murmurs, gallops, or rubs. RESPIRATORY: Breath sounds equal bilaterally. No accessory muscle use. GASTROINTESTINAL: Abdomen soft, non-tender, nondistended. MUSCULOSKELETAL: No cyanosis, or edema. Limited range of motion of left hip due to severe pain. There is no erythema or edema of the left hip. No joint tenderness, effusion, or edema noted. No calf tenderness. Negative Homans sign bilaterally. BACK: Nontender without obvious deformity. NEURO EXAM: GCS: 14 Mental Status: The patient is alert and oriented to person, place, and time with normal speech. Lethargic Laboratory Laboratory Tests Test 01/08/18 07:20 01/08/18 12:23 Creatinine 1.39 1.66 Estimat Glomerular Filtration Rate 37 31 Troponin I 0.68 Random Vancomycin Level 13.1 Blood Urea Nitrogen 35 Random Glucose 203 Calcium Level 8.8 Sodium Level 132 Potassium Level 5.4 Chloride Level 101 Carbon Dioxide Level 22.7 Anion Gap 8 Total Creatine Kinase 179 Date/Time Source Procedure Growth Status 01/06/18 10:45 Blood Peripheral Aerobic Blood Culture - Preliminary Staphylococcus Aureus Resulted 01/06/18 10:45 Anaerobic Blood Culture - Preliminary Staphylococcus Aureus Resulted 01/07/18 15:56 Fluid Other Gram Stain - Final Resulted 01/07/18 15:56 Body Fluid Culture - Preliminary Staphylococcus Aureus Resulted 01/08/18 18:15 Wound Hip Fungal Smear Pending Received 01/08/18 18:15 Wound Hip Fungal Culture Pending Received Result Diagram: 01/07/18 0321 01/08/18 1223 Imaging Last 24 hours Impressions Myocardial Perfusion Scan Nuc Med 01/08/18 0000 Signed Impressions: Service Date/Time: Monday, January 08, 2018 13:56 - CONCLUSION: 1. No fixed or reversible perfusion defect is identified. 2. Global hypokinesia with reduced ejection fraction calculated at 44%%. RISK CATEGORY: Intermediate (1-3%% Annual Mortality Rate) Ceasar Oh MD Septic Shock Reassessment Septic shock perfusion: reassessment completed Assessment and Plan Assessment and Plan Pyogenic arthritis - Status post I&D - Staphylococcal infection - Antibiotics per ID - Management per ID and orthopedic surgery Acute kidney injury - due to sepsis with staph aureus infection - Continue with IV fluid NS 100 cc an hour - Avoid nephrotoxins - Avoid nonsteroidal anti-inflammatory drugs - Nephrology consultation appreciated Diabetes mellitus type 2 - metformin - Accu-Cheks, insulin sliding scale Elevated troponins - Underlying kidney failure - Negative stress test - For the per cardiology DVT GI prophylaxis - Teds SCDs - Subcutaneous Lovenox - Pepcid Critical Care: The total critical care time was 35 minutes. Time to perform other separately billable procedures was not included in the critical care time. Bruno Oneal MD Jan 08, 2018 9:40 pm
[2018-01-08] MEDS: FAMOTIDINE 20 MG/2 ML VIAL IV PUSH SCH (23:02)
[2018-01-08] MEDS ORDERED: CHLORHEXIDINE GLUCONATE 2 % 1 PACK (2 CLOTHS)(extra cloths) TOPICAL PRN (23:15)
[2018-01-09] VITALS (11 sets, daily range): BP systolic 105–127; BP diastolic 54–67; PULSE 53–63; RESP 11–22; TEMP 97.6–98.3; O2SAT 98–100
[2018-01-09] MEDS: CHLORHEXIDINE GLUCONATE 2 % 1 PACK (2 CLOTHS)(taper/protocol) TOPICAL SCH (04:00)
[2018-01-09] MEDS: LACTATED RINGER'S 1000 ML INJ 1,000 ML IV SCH ×2 (04:38→14:46)
[2018-01-09] MEDS: HYDROmorphone HCL PF 2 MG/ML VIAL IV PRN (04:38)
[2018-01-09] MEDS: SODIUM CHLOR 0.9% 1000 ML INJ 1,000 ML IV SCH ×2 (05:29→15:32)
[2018-01-09 05:44] LABS: CREATININE, RANDOM URINE 206.8 MG/DL
[2018-01-09 05:50] LABS: BACTERIA, URINE FEW /hpf; BILIRUBIN, URINE NEG (NEG); BLOOD, URINE SMALL (NEG); GLUCOSE,URINE NEG (NEG); KETONE, URINE NEG (NEG); NITRITE,URINE NEG (NEG); URINE COLOR YELLOW (YELLW/STRAW); URINE LEUKOCYTE ESTERASE NEG (NEG)
[2018-01-09 06:18] LABS: AUTOMATED NEUTROPHIL # 8.9 TH/MM3 (1.8-7.7); BASOPHIL % 0.1 % (0.0-2.0); EOSINOPHIL # 0.1 TH/MM3 (0-0.4); HEMATOCRIT 28.7 % (35.0-46.0); HEMOGLOBIN 9.4 GM/DL (11.6-15.3); LYMPH % 3.5 % (9.0-44.0); LYMPHOCYTE # 0.3 TH/MM3 (1.0-4.8); MEAN CELL VOLUME 81.3 FL (80.0-100.0); MEAN CORPUSCULAR HEMOGLOBIN 26.8 PG (27.0-34.0); MEAN CORPUSCULAR HGB CONC 32.9 % (32.0-36.0); MEAN PLATELET VOLUME 8.5 FL (7.0-11.0); MONO % 5.5 % (0.0-8.0); MONOCYTE # 0.5 TH/MM3 (0-0.9); NEUT % 89.9 % (16.0-70.0); PLATELET COUNT 228 TH/MM3 (150-450); RED BLOOD COUNT 3.52 MIL/MM3 (4.00-5.30); RED CELL DISTRIBUTION WIDTH 16.7 % (11.6-17.2); WHITE BLOOD COUNT 9.9 TH/MM3 (4.0-11.0)
[2018-01-09 06:47] LABS: ALBUMIN 2.4 GM/DL (3.4-5.0); ALKALINE PHOSPHATASE 236 U/L (45-117); ALT (GPT) 264 U/L (10-53); AST (GOT) 164 U/L (15-37); BICARBONATE 20.6 MEQ/L (21.0-32.0); BLOOD UREA NITROGEN 48 MG/DL (7-18); CALCIUM 8.3 MG/DL (8.5-10.1); CHLORIDE 103 MEQ/L (98-107); CREATININE 1.68 MG/DL (0.50-1.00); GLOMERULAR FILTRATION RATE 30 ML/MIN (>89); GLUCOSE,RANDOM 185 MG/DL (74-106); PHOSPHORUS 5.5 MG/DL (2.5-4.9); SODIUM (NA) 133 MEQ/L (136-145); TOTAL BILIRUBIN ADULT 0.3 MG/DL (0.2-1.0); TOTAL PROTEIN 6.6 GM/DL (6.4-8.2)
[2018-01-09] MEDS: ENOXAPARIN SODIUM 30 MG/0.3 ML SYRINGE SQ SCH (07:02)
[2018-01-09] MEDS: oxyCODONE/ACETAMINOPHEN 5 MG/325 MG TAB PO PRN ×3 (08:03→18:46)
--- NOTE | 2018-01-09 08:05 | PD.ORT.PN ---
Subjective Post Op Day #: 1 Subjective Remarks The patient is awake and alert and lying in bed. She looks much improved. Pain is well controlled. Objective Vitals Vital Signs Date Time Temp Pulse Resp B/P (MAP) Pulse Ox O2 Delivery O2 Flow Rate FiO2 01/09/18 06:00 56 01/09/18 04:00 53 01/09/18 04:00 98.3 53 15 108/59 (75) 99 01/09/18 02:00 54 01/09/18 00:00 58 01/09/18 00:00 97.9 58 11 111/67 (82) 98 01/08/18 22:00 58 01/08/18 21:52 97 Nasal Cannula 4.00 01/08/18 20:57 97.6 65 20 128/66 (86) 97 01/08/18 20:35 63 8 109/53 (71) 95 Nasal Cannula 4 01/08/18 20:15 66 8 107/53 (71) 94 Nasal Cannula 4 01/08/18 20:00 67 8 119/58 (78) 95 Nasal Cannula 4 01/08/18 19:45 67 8 119/57 (77) 96 Nasal Cannula 4 01/08/18 19:30 67 8 114/55 (74) 96 Nasal Cannula 8 01/08/18 19:15 65 8 119/55 (76) 96 Nasal Cannula 8 01/08/18 18:59 98.6 69 8 129/61 (83) 96 Nasal Cannula 8 01/08/18 15:59 97.2 70 20 108/70 (83) 90 01/08/18 12:01 97.3 69 20 93/51 (65) 96 01/08/18 10:32 94 01/08/18 08:25 96 Room Air 01/08/18 08:09 97.3 118 20 113/68 (83) 95 I/O 01/08/18 01/08/18 01/08/18 01/09/18 01/09/18 01/09/18 07:00 15:00 23:00 07:00 15:00 23:00 Intake Total 400 ml 1480 ml Output Total 25 ml 900 ml Balance 375 ml 580 ml Intake Oral 480 ml IV Total 100 ml 1000 ml Other 300 ml Output Urine Total 900 ml Estimated Blood Loss 25 ml # Voids 3 # Bowel Movements 0 Result Diagram: 01/09/18 0530 01/09/18 0530 Imaging Last 24 hours Impressions Hip Aspiration/Injection 01/07/181999 Signed Impressions: Service Date/Time: Sunday, January 07, 2018 15:44 - CONCLUSION: Uncomplicated fluoroscopic guided left hip aspiration as above. Ceasar Parikh MD Procedures Incision and drainage left hip 01/08/18Dean Objective Remarks Left hip: Dressing dry and intact. Drain in place. Tender to palpation with mild swelling around incision site. Appropriate range of motion expected post operatively. Freely able to move distal digits. No calf pain. Negative Betzaida's sign. Good cap refill. 2+ pedal pulses. Neurovascular intact. Assessment & Plan Ortho Post Op Day #: 1 Problem List: (1) Septic arthritis of hip ICD Codes: M00.9 - Pyogenic arthritis, unspecified Qualifiers: Qualified Codes: M00.052 - Staphylococcal arthritis, left hip Assessment and Plan POD #1 Incision and drainage left hip Ortho status stable Progress rehab, w/b as tolerated, up to chair Daily dressing changes starting POD #2 d/c drain when < 30cc a shift Lovenox for DVT prophylaxis Hip Aspiration grew Staph Awaiting operative cultures Abx per ID Discharge planning Farida Garcia Jan 09, 2018 08:05
[2018-01-09] MEDS: DOCUSATE SODIUM 50 MG/SENNA 8.6 MG TAB PO SCH ×2 (08:31→22:27)
[2018-01-09] MEDS: FAMOTIDINE 20 MG/2 ML VIAL IV PUSH SCH ×2 (08:32→22:27)
[2018-01-09] MEDS: SERTRALINE HCL 100 MG TAB PO SCH (08:32)
[2018-01-09] MEDS: PRAVASTATIN SOD 80 MG TAB PO SCH (08:32)
[2018-01-09] MEDS: INSULIN ASPART SUPPLEMENTAL SCALE SQ SCH ×4 (08:33→22:28)
[2018-01-09] MEDS: SODIUM CHLORIDE 0.9% FLUSH 10 ML FLUSH IV FLUSH SCH ×4 (08:33→22:27)
[2018-01-09] MEDS: MAGNESIUM OXIDE 400 MG TAB PO SCH (09:00)
[2018-01-09] MEDS: ATENOLOL 50 MG TAB PO SCH (09:00)
[2018-01-09] MEDS: ALOSETRON 1 MG PO SCH ×2 (09:00→21:00)
--- NOTE | 2018-01-09 09:13 | RADRPT ---
EXAM DATE/TIME: 01/09/2018 08:06 [facility] COMPARISON: No previous studies available for comparison. INDICATIONS : Increased BUN/Creatnine. MEDICAL HISTORY : Arthritis. Diabetes. Renal cell carcinoma. Blood transfusions. SURGICAL HISTORY : Nephrectomy, left. ENCOUNTER: Initial ACUITY: 1 day PAIN SCORE: 7/10 LOCATION: Bilateral flank MEASUREMENTS: RIGHT KIDNEY: 12.1 x 7.0 x 6.1 cm LEFT KIDNEY: Surgically absent FINDINGS: RIGHT KIDNEY: Renal cortex is normal in thickness and echotexture. No hydronephrosis, stone, or mass. LEFT KIDNEY: Surgically absent. BLADDER: Not adequately assessed given decompression with Salcedo catheter in place. Liver demonstrates increased echotexture with nodular appearing areas of increased echogenicity ident ified. CONCLUSION: 1. No abnormality is identified to explain the abnormal laboratory values. Right kidney demonstrates no hydronephrosis. 2. Suspected hepatic steatosis with nodular areas appearing within the visualized portions. This may represent atypical steatosis but this should be further evaluated at some point with liver MRI with a nd without intravenous contrast. Ceasar Oh MD on January 09, 2018 at 9:10 Board Certified Radiologist. This report was verified electronically.
--- NOTE | 2018-01-09 09:46 | PD.CARD.PN ---
Subjective Subjective Remarks Hip quite painful. No chest pain or dyspnea Objective Medications Current Medications Medications (Trade) Dose Ordered Sig/Dalia Route Start Time Stop Time Status Last Admin (NS Flush) 2 ml UNSCH PRN IV FLUSH 01/06/18 12:45 (NS Flush) 2 ml BID IV FLUSH 01/06/18 21:00 01/09/18 08:33 (Tylenol) 650 mg Q4H PRN PO 01/06/18 12:45 01/06/18 23:51 (Zofran Inj) 4 mg Q6H PRN IVP 01/06/18 12:45 (Tylenol) 650 mg Q6H PRN PO 01/06/18 12:45 (Narcan Inj) 0.4 mg UNSCH PRN IV PUSH 01/06/18 12:45 (Deidra-Colace) 1 tab BID PO 01/06/18 21:00 01/09/18 08:31 (Milk Of Magnesia Liq) 30 ml Q12H PRN PO 01/06/18 12:45 01/07/18 23:14 (Senokot) 17.2 mg Q12H PRN PO 01/06/18 12:45 (Dulcolax Supp) 10 mg DAILY PRN RECTAL 01/06/18 12:45 (Lactulose Liq) 30 ml DAILY PRN PO 01/06/18 12:45 (Dilaudid Pf Inj) 1 mg Q4H PRN IV 01/06/18 18:00 01/09/18 04:38 (Zoloft) 100 mg DAILY PO 01/07/18 09:00 01/09/18 08:32 Patient Own Medication PT OWN MED:(Alosetron (Lotronex... BID PO 01/06/18 21:00 (Mag-Ox) 400 mg DAILY PO 01/07/18 09:00 01/08/18 08:10 (Pravachol) 80 mg DAILY PO 01/07/18 09:00 01/09/18 08:32 (D50w (Vial) Inj) 50 ml UNSCH PRN IV PUSH 01/06/18 18:15 (Glucagon Inj) 1 mg UNSCH PRN OTHER 01/06/18 18:15 (NovoLOG SUPPLEMENTAL SCALE) 1 ACHS SLIDING SCALE SQ 01/06/18 21:00 01/09/18 08:33 (Percocet 5-325 Mg) 1 tab Q4H PRN PO 01/07/18 15:00 01/09/18 08:03 (Tenormin) 50 mg DAILY PO 01/08/18 09:00 01/08/18 08:11 (Roxicodone) 15 mg Q4H PRN PO 01/08/18 10:45 01/08/18 15:54 (Betadine 5% Antisepsis Kit) 1 applic SALES OPERATIONS SPECIALIST PRN EACH NARE 01/08/18 12:45 01/11/18 12:44 (Chlorhexidine 2% Cloth) 3 pack SALES OPERATIONS SPECIALIST PRN TOPICAL 01/08/18 12:45 01/11/18 12:44 Daptomycin 320 mg/ Sodium Chloride 100 ml @ 200 mls/hr Q24H IV 01/08/18 18:00 01/08/18 18:21 Lactated Ringer's 1,000 ml @ 100 mls/hr Q10H IV 01/08/18 18:46 (NS Flush) 2 ml UNSCH PRN IV FLUSH 01/08/18 19:00 (NS Flush) 2 ml BID IV FLUSH 01/08/18 21:00 (Lovenox Inj) 30 mg Q24H SQ 01/09/18 07:00 01/09/18 07:02 (Benadryl) 25 mg Q6H PRN PO 01/08/18 19:00 (Betadine 10% Top Soln) 30 applic UNSCH X1 PRN TOPICAL 01/08/18 19:00 01/10/18 18:59 Miscellaneous Information ALL NURSING DEPARTME... UNSCH PRN .XX 01/08/18 19:04 01/09/18 19:03 Sodium Chloride 1,000 ml @ 100 mls/hr Q10H IV 01/08/18 19:30 01/09/18 05:29 (Pepcid Inj) 10 mg Q12HR IV PUSH 01/08/18 22:45 01/09/18 08:32 Miscellaneous Information Patient in critical care unit? Ass... Q361D .XX 01/08/18 23:15 01/08/18 23:11 (Chlorhexidine 2% Cloth) 3 pack DAILY@04 TOPICAL 01/09/18 04:00 01/13/18 04:01 01/09/18 04:00 (Chlorhexidine 2% Cloth) 3 pack UNSCH PRN TOPICAL 01/08/18 23:15 01/13/18 23:05 Vital Signs / I&O Vital Signs Date Time Temp Pulse Resp B/P (MAP) Pulse Ox O2 Delivery O2 Flow Rate FiO2 01/09/18 08:34 100 Nasal Cannula 01/09/18 06:00 56 01/09/18 04:00 53 01/09/18 04:00 98.3 53 15 108/59 (75) 99 01/09/18 02:00 54 01/09/18 00:00 58 01/09/18 00:00 97.9 58 11 111/67 (82) 98 01/08/18 22:00 58 01/08/18 21:52 97 Nasal Cannula 4.00 01/08/18 20:57 97.6 65 20 128/66 (86) 97 01/08/18 20:35 63 8 109/53 (71) 95 Nasal Cannula 4 01/08/18 20:15 66 8 107/53 (71) 94 Nasal Cannula 4 01/08/18 20:00 67 8 119/58 (78) 95 Nasal Cannula 4 01/08/18 19:45 67 8 119/57 (77) 96 Nasal Cannula 4 01/08/18 19:30 67 8 114/55 (74) 96 Nasal Cannula 8 01/08/18 19:15 65 8 119/55 (76) 96 Nasal Cannula 8 01/08/18 18:59 98.6 69 8 129/61 (83) 96 Nasal Cannula 8 01/08/18 15:59 97.2 70 20 108/70 (83) 90 01/08/18 12:01 97.3 69 20 93/51 (65) 96 01/08/18 10:32 94 I/O 01/08/18 01/08/18 01/08/18 01/09/18 01/09/18 01/09/18 07:00 15:00 23:00 07:00 15:00 23:00 Intake Total 400 ml 1480 ml Output Total 25 ml 900 ml Balance 375 ml 580 ml Intake Oral 480 ml IV Total 100 ml 1000 ml Other 300 ml Output Urine Total 900 ml Estimated Blood Loss 25 ml # Voids 3 # Bowel Movements 0 Physical Exam NSR HR 60 Laboratory Laboratory Tests Test 01/08/18 12:23 01/08/18 21:00 01/09/18 04:55 01/09/18 05:30 Blood Urea Nitrogen 35 MG/DL 48 MG/DL Creatinine 1.66 MG/DL 1.68 MG/DL Random Glucose 203 MG/DL 185 MG/DL Calcium Level 8.8 MG/DL 8.3 MG/DL Sodium Level 132 MEQ/L 133 MEQ/L Potassium Level 5.4 MEQ/L 5.4 MEQ/L Chloride Level 101 MEQ/L 103 MEQ/L Carbon Dioxide Level 22.7 MEQ/L 20.6 MEQ/L Anion Gap 8 MEQ/L 9 MEQ/L Estimat Glomerular Filtration Rate 31 ML/MIN 30 ML/MIN Total Creatine Kinase 179 U/L 137 U/L Nasal Screen MRSA (PCR) MRSA NOT DETECTED Urine Color YELLOW Urine Turbidity HAZY Urine pH 6.0 Urine Specific [place] 1.022 Urine Protein 30 mg/dL Urine Glucose (UA) NEG mg/dL Urine Ketones NEG mg/dL Urine Occult Blood SMALL Urine Nitrite NEG Urine Bilirubin NEG Urine Urobilinogen LESS THAN 2.0 MG/DL Urine Leukocyte Esterase NEG Urine RBC 2 /hpf Urine WBC 2 /hpf Urine Bacteria FEW /hpf Urine Granular Casts 1 /lpf Microscopic Urinalysis Comment CULT NOT INDICATED Urine Random Creatinine 206.8 MG/DL Urine Random Sodium 9 MEQ/L White Blood Count 9.9 TH/MM3 Red Blood Count 3.52 MIL/MM3 Hemoglobin 9.4 GM/DL Hematocrit 28.7 % Mean Corpuscular Volume 81.3 FL Mean Corpuscular Hemoglobin 26.8 PG Mean Corpuscular Hemoglobin Concent 32.9 % Red Cell Distribution Width 16.7 % Platelet Count 228 TH/MM3 Mean Platelet Volume 8.5 FL Neutrophils (%) (Auto) 89.9 % Lymphocytes (%) (Auto) 3.5 % Monocytes (%) (Auto) 5.5 % Eosinophils (%) (Auto) 1.0 % Basophils (%) (Auto) 0.1 % Neutrophils # (Auto) 8.9 TH/MM3 Lymphocytes # (Auto) 0.3 TH/MM3 Monocytes # (Auto) 0.5 TH/MM3 Eosinophils # (Auto) 0.1 TH/MM3 Basophils # (Auto) 0.0 TH/MM3 CBC Comment DIFF FINAL Differential Comment Total Protein 6.6 GM/DL Albumin 2.4 GM/DL Phosphorus Level 5.5 MG/DL Magnesium Level 3.0 MG/DL Alkaline Phosphatase 236 U/L Aspartate Amino Transf (AST/SGOT) 164 U/L Alanine Aminotransferase (ALT/SGPT) 264 U/L Total Bilirubin 0.3 MG/DL Imaging Last 24 hours Impressions Renal Ultrasound 01/09/18 0000 Signed Impressions: Service Date/Time: Tuesday, January 09, 2018 08:06 - CONCLUSION: 1. No abnormality is identified to explain the abnormal laboratory values. Right kidney demonstrates no hydronephrosis. 2. Suspected hepatic steatosis with nodular areas appearing within the visualized portions. This may represent atypical steatosis but this should be further evaluated at some point with liver MRI with and without intravenous contrast. Ceasar Oh MD Assessment and Plan Assessment and Plan No evidence of ischemia per lexiscan. Feel troponin elevation demand mediated. Back in NSR. Stable CV. Will see prn. Please call if needed. Scottie Cuevas MD Jan 09, 2018 09:46
--- NOTE | 2018-01-09 10:00 | HHI.CCPN ---
Subjective Remarks/Hospital Course 72-year-old female with past medical history of Mcmya-Cbdae-Ilfls, diabetes mellitus type 2, Irritable bowel syndrome, right colectomy secondary to adenocarcinoma of cecum 2006, carcinoid tumor s/p left nephrectomy 10/2016 and now cancer free since 2015 admitted for an evaluation of complaints of left hip pain for 3 days. Said she went to urgent care and they thought it was bursitis and gave her prednisone and tramadol. She was diagnosed with septic arthritis and was taken emergently to operating room for I&D and washout. SUBJ 01/09: Underwent incision and drainage of the left hip yesterday, after capsule was incised copious amounts of purulent material evacuated. Currently lying in bed, no acute distress. Getting Percocet for pain. No evidence of ischemia per Lexiscan. Troponin elevation could be demand related. Creatinine stable WBC normalized Objective Vital Signs Date Time Temp Pulse Resp B/P (MAP) Pulse Ox O2 Delivery O2 Flow Rate FiO2 01/09/18 08:34 100 Nasal Cannula 01/09/18 08:00 97.8 55 18 127/56 (79) 01/08/18 21:52 4.00 01/08/18 07:49 21 Intake and Output 01/09/18 01/09/18 01/10/18 08:00 16:00 00:00 Intake Total 1480 ml Output Total 900 ml Balance 580 ml Result Diagram: 01/09/18 0530 01/09/18 0530 Other Results Microbiology Date/Time Source Procedure Growth Status 01/07/18 15:56 Fluid Other Gram Stain - Final Complete 01/07/18 15:56 Body Fluid Culture - Final Staphylococcus Aureus Complete Imaging Last 24 hours Impressions Myocardial Perfusion Scan Nuc Med 01/08/18 0000 Signed Impressions: Service Date/Time: Monday, January 08, 2018 13:56 - CONCLUSION: 1. No fixed or reversible perfusion defect is identified. 2. Global hypokinesia with reduced ejection fraction calculated at 44%%. RISK CATEGORY: Intermediate (1-3%% Annual Mortality Rate) Ceasar Oh MD Procedures Joint aspiration Objective Remarks GENERAL: Well-nourished, well-developed patient. SKIN: Warm and dry. HEAD: Normocephalic. EYES: No scleral icterus. No injection or drainage. NECK: Supple, trachea midline. No JVD or lymphadenopathy. CARDIOVASCULAR: Regular rate and rhythm without murmurs, gallops, or rubs. RESPIRATORY: Breath sounds equal bilaterally. No accessory muscle use. GASTROINTESTINAL: Abdomen soft, non-tender, nondistended. MUSCULOSKELETAL: Limited range of motion of left hip due to severe pain. Incision dressing intact BACK: Nontender without obvious deformity. NEURO EXAM: The patient is alert and oriented to person, place, and time with normal speech. No focal deficit A/P Assessment and Plan Septic arthritis with staph aureus - Status post I&D by Dr. Moran - Staphylococcal infection - Antibiotics per ID (currently on Daptomycin-consider changing to Rocephin. PCN allergy listed as mild) -Septic arthritis management per ID and orthopedic surgery Acute kidney injury - due to sepsis with staph aureus infection - Continue with IV fluid NS 100 cc an hour - Avoid nephrotoxins - Avoid nonsteroidal anti-inflammatory drugs - Nephrology following Diabetes mellitus type 2 - Hold metformin - Accu-Cheks, insulin sliding scale Elevated troponin - Underlying kidney failure - Negative stress test. Most likely demand ischemia - Place on aspirin 81 mg daily. - Cannot use beta-blockers due to bradycardia and borderline hypotensive DVT GI prophylaxis - Teds SCDs - Subcutaneous Lovenox - Pepcid Critical Care: Level 2 Consult hospitalist to assume care in am. Transfer to Med Surg with Tele Alexa Mcdonough MD Jan 09, 2018 10:00
[2018-01-09] MEDS: ASPIRIN EC 81 MG TABEC PO SCH (11:00)
--- NOTE | 2018-01-09 11:05 | HHI.NPPN ---
Subjective History of Present Illness 72 year old with septic arthritis L hip s/p I&D with ARF Objective Data Data Vital Signs Date Time Temp Pulse Resp B/P (MAP) Pulse Ox O2 Delivery O2 Flow Rate FiO2 01/09/18 10:00 58 01/09/18 08:34 100 Nasal Cannula 01/09/18 08:00 97.8 55 18 127/56 (79) 100 01/09/18 08:00 55 01/09/18 06:00 56 01/09/18 04:00 53 01/09/18 04:00 98.3 53 15 108/59 (75) 99 01/09/18 02:00 54 01/09/18 00:00 58 01/09/18 00:00 97.9 58 11 111/67 (82) 98 01/08/18 22:00 58 01/08/18 21:52 97 Nasal Cannula 4.00 01/08/18 20:57 97.6 65 20 128/66 (86) 97 01/08/18 20:35 63 8 109/53 (71) 95 Nasal Cannula 4 01/08/18 20:15 66 8 107/53 (71) 94 Nasal Cannula 4 01/08/18 20:00 67 8 119/58 (78) 95 Nasal Cannula 4 01/08/18 19:45 67 8 119/57 (77) 96 Nasal Cannula 4 01/08/18 19:30 67 8 114/55 (74) 96 Nasal Cannula 8 01/08/18 19:15 65 8 119/55 (76) 96 Nasal Cannula 8 01/08/18 18:59 98.6 69 8 129/61 (83) 96 Nasal Cannula 8 01/08/18 15:59 97.2 70 20 108/70 (83) 90 01/08/18 12:01 97.3 69 20 93/51 (65) 96 -: 01/09/18 0530 01/09/18 0530 Microbiology 01/08/18 Fungal Smear - Final, Resulted NO FUNGAL ELEMENTS SEEN. 01/08/18 Fungal Culture, Resulted Pending 01/08/18 Acid Fast Stain, Received Pending 01/08/18 Mycobacterial Culture, Received Pending 01/08/18 Gram Stain - Final, Resulted 01/08/18 Wound Culture, Resulted Pending Physical Exam General Appearance: Well Developed, Well Nourished Neck Neck Exam: Neck Supple Pulmonary Resp Exam: Clear Bilaterally, Breath Sounds Equal Cardiology CV Exam: Regular, Normal Sinus Rhythm Gastrointestinal/Abdomen GI Exam: Soft, Non-Tender, Bowel Sounds Present Extremeties Extremities Exam: Trace Edema Assessment/Plan Problem List: (1) Acute renal failure ICD Codes: N17.9 - Acute kidney failure, unspecified Plan: This is likely due to sepsis with staph aureus infection, ATN Agree with IV fluid NS 100 cc an hour Ultrasound right kidney no hydronephrosis, possible liver steatosis Give sodium bicarbonate Avoid nephrotoxins Avoid nonsteroidal anti-inflammatory drugs Follow BMP (2) Septic arthritis of hip ICD Codes: M00.9 - Pyogenic arthritis, unspecified Plan: On daptomycin (3) Effusion of hip joint, left ICD Codes: M25.452 - Effusion, left hip Plan: Cultures growing staph aureus Problem Qualifiers (1) Septic arthritis of hip: Qualified Codes: M00.052 - Staphylococcal arthritis, left hip Isadora Rosario MD Jan 09, 2018 11:05
[2018-01-09] MEDS ORDERED: PHARMACY ORDERED LAB ONE (12:45)
[2018-01-09] MEDS: SODIUM BICARBONATE 650 MG TAB PO SCH ×2 (14:00→22:27)
--- NOTE | 2018-01-09 14:40 | HHI.IDPN ---
Note Infectious Disease Note Patient underwent irrigation and debridement of the left hip on 01/08. She was transferred to intensive care unit for observation. Currently she feels well. She is awake and alert. He has a Hemovac catheter in place in the left hip which has sanguinous drainage. Afebrile. at bedside. Blood cultures - Staph aureus. Hip aspirate - Staph aureus. 72-year-old white female who was brought to the emergency department because of left hip pain. The patient and her are on vacation from [place]. She developed pain in the left hip and was evaluated at an Urgent [facility] Center five days ago. She was given pain medication and prednisone since it was felt that it was likely due to bursitis. However, the pain persisted and three days ago the patient's had to get a wheelchair because she had difficulty ambulating and eventually he brought her to the emergency department for evaluation. PAST MEDICAL HISTORY/PAST SURGICAL HISTORY 1. Lnkhy-Ypyep-Fsskp syndrome. 2. Diabetes mellitus. 3. Irritable bowel syndrome. 4. 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 5. Left knee arthroscopic surgery in 1985. 6. Cholecystectomy. 7. Breast lump resection. 8. History of laser surgery of the nose. 9. 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 ALLERGIES PENICILLIN. BACTRIM. ANTIBIOTICS: Cubicin Current Medications Medications (Trade) Dose Ordered Sig/Dalia Route PRN Reason Start Time Stop Time Status Last Admin Dose Admin Sodium Chloride (NS Flush) 2 ml UNSCH PRN IV FLUSH FLUSH AFTER USING IV ACCESS 01/06/18 12:45 Sodium Chloride (NS Flush) 2 ml BID IV FLUSH 01/06/18 21:00 01/09/18 08:33 Acetaminophen (Tylenol) 650 mg Q4H PRN PO TEMP > 100.4 01/06/18 12:45 01/06/18 23:51 Ondansetron HCl (Zofran Inj) 4 mg Q6H PRN IVP NAUSEA OR VOMITING 01/06/18 12:45 Acetaminophen (Tylenol) 650 mg Q6H PRN PO PAIN SCALE 1 TO 2 01/06/18 12:45 Naloxone HCl (Narcan Inj) 0.4 mg UNSCH PRN IV PUSH SEE LABEL COMMENTS 01/06/18 12:45 Senna/Docusate Sodium (Deidra-Colace) 1 tab BID PO 01/06/18 21:00 01/09/18 08:31 Magnesium Hydroxide (Milk Of Magnesia Liq) 30 ml Q12H PRN PO Mild constipation 01/06/18 12:45 01/07/18 23:14 Sennosides (Senokot) 17.2 mg Q12H PRN PO Moderate constipation 01/06/18 12:45 Bisacodyl (Dulcolax Supp) 10 mg DAILY PRN RECTAL SEVERE CONSITIPATION 01/06/18 12:45 Lactulose (Lactulose Liq) 30 ml DAILY PRN PO SEVERE CONSITIPATION 01/06/18 12:45 Hydromorphone HCl (Dilaudid Pf Inj) 1 mg Q4H PRN IV BREAKTHROUGH PAIN 01/06/18 18:00 01/09/18 04:38 Sertraline HCl (Zoloft) 100 mg DAILY PO 01/07/18 09:00 01/09/18 08:32 Patient Own Medication PT OWN MED:(Alosetron (Lotronex... BID PO 01/06/18 21:00 Magnesium Oxide (Mag-Ox) 400 mg DAILY PO 01/07/18 09:00 01/08/18 08:10 Pravastatin Sodium (Pravachol) 80 mg DAILY PO 01/07/18 09:00 01/09/18 08:32 Dextrose (D50w (Vial) Inj) 50 ml UNSCH PRN IV PUSH HYPOGLYCEMIA-SEE COMMENTS 01/06/18 18:15 Glucagon (Glucagon Inj) 1 mg UNSCH PRN OTHER HYPOGLYCEMIA-SEE COMMENTS 01/06/18 18:15 Insulin Aspart (NovoLOG SUPPLEMENTAL SCALE) 1 ACHS SLIDING SCALE SQ 01/06/18 21:00 01/09/18 12:19 Oxycodone/ Acetaminophen (Percocet 5-325 Mg) 1 tab Q4H PRN PO PAIN SCALE 3 TO 5 01/07/18 15:00 01/09/18 12:17 Atenolol (Tenormin) 50 mg DAILY PO 01/08/18 09:00 01/08/18 08:11 Oxycodone HCl (Roxicodone) 15 mg Q4H PRN PO pain 6-10 01/08/18 10:45 01/08/18 15:54 Povidone Iodine (Betadine 5% Antisepsis Kit) 1 applic [employer]TING [employer]ING [employer]OR PRN EACH NARE SEE LABEL COMMENTS 01/08/18 12:45 01/11/18 12:44 Chlorhexidine Gluconate (Chlorhexidine 2% Cloth) 3 pack [employer]TING [employer]ING [employer]OR PRN TOPICAL SEE LABEL COMMENTS 01/08/18 12:45 01/11/18 12:44 Lactated Ringer's 1,000 ml @ 100 mls/hr Q10H IV 01/08/18 18:46 Sodium Chloride (NS Flush) 2 ml UNSCH PRN IV FLUSH FLUSH AFTER USING IV ACCESS 01/08/18 19:00 Sodium Chloride (NS Flush) 2 ml BID IV FLUSH 01/08/18 21:00 Enoxaparin Sodium (Lovenox Inj) 30 mg Q24H SQ 01/09/18 07:00 01/09/18 07:02 Diphenhydramine HCl (Benadryl) 25 mg Q6H PRN PO ITCHING 01/08/18 19:00 Povidone Iodine (Betadine 10% Top Soln) 30 applic UNSCH X1 PRN TOPICAL WOUND CARE 01/08/18 19:00 01/10/18 18:59 Miscellaneous Information ALL NURSING DEPARTME... UNSCH PRN .XX SEE LABEL COMMENTS 01/08/18 19:04 01/09/18 19:03 Sodium Chloride 1,000 ml @ 100 mls/hr Q10H IV 01/08/18 19:30 01/09/18 05:29 Famotidine (Pepcid Inj) 10 mg Q12HR IV PUSH 01/08/18 22:45 01/09/18 08:32 Miscellaneous Information Patient in critical care unit? Ass... Q361D .XX 01/08/18 23:15 01/08/18 23:11 Chlorhexidine Gluconate (Chlorhexidine 2% Cloth) 3 pack DAILY@04 TOPICAL 01/09/18 04:00 01/13/18 04:01 01/09/18 04:00 Chlorhexidine Gluconate (Chlorhexidine 2% Cloth) 3 pack UNSCH PRN TOPICAL HYGIENIC CARE 01/08/18 23:15 01/13/18 23:05 Aspirin (Ecotrin Ec) 81 mg DAILY PO 01/09/18 11:00 Sodium Bicarbonate (Sodium Bicarbonate) 650 mg Q8HR PO 01/09/18 14:00 Cefazolin Sodium 1000 mg/Sodium Chloride 100 ml @ 200 mls/hr Q12H IV 01/09/18 18:00 UNV OBJ: Vital Signs Date Time Temp Pulse Resp B/P (MAP) Pulse Ox O2 Delivery O2 Flow Rate FiO2 01/09/18 12:00 97.6 54 17 107/54 (71) 100 01/09/18 12:00 54 01/09/18 12:00 100 2.00 01/09/18 10:00 58 01/09/18 08:34 100 Nasal Cannula 01/09/18 08:00 100 2.00 01/09/18 08:00 97.8 55 18 127/56 (79) 100 01/09/18 08:00 55 01/09/18 06:00 56 01/09/18 04:00 53 01/09/18 04:00 98.3 53 15 108/59 (75) 99 01/09/18 02:00 54 01/09/18 00:00 58 01/09/18 00:00 97.9 58 11 111/67 (82) 98 01/08/18 22:00 58 01/08/18 21:52 97 Nasal Cannula 4.00 01/08/18 20:57 97.6 65 20 128/66 (86) 97 01/08/18 20:35 63 8 109/53 (71) 95 Nasal Cannula 4 01/08/18 20:15 66 8 107/53 (71) 94 Nasal Cannula 4 01/08/18 20:00 67 8 119/58 (78) 95 Nasal Cannula 4 01/08/18 19:45 67 8 119/57 (77) 96 Nasal Cannula 4 01/08/18 19:30 67 8 114/55 (74) 96 Nasal Cannula 8 01/08/18 19:15 65 8 119/55 (76) 96 Nasal Cannula 8 01/08/18 18:59 98.6 69 8 129/61 (83) 96 Nasal Cannula 8 01/08/18 15:59 97.2 70 20 108/70 (83) 90 Laboratory Tests Test 01/09/18 05:30 White Blood Count 9.9 TH/MM3 Red Blood Count 3.52 MIL/MM3 Hemoglobin 9.4 GM/DL Hematocrit 28.7 % Mean Corpuscular Volume 81.3 FL Mean Corpuscular Hemoglobin 26.8 PG Mean Corpuscular Hemoglobin Concent 32.9 % Red Cell Distribution Width 16.7 % Platelet Count 228 TH/MM3 Mean Platelet Volume 8.5 FL Neutrophils (%) (Auto) 89.9 % Lymphocytes (%) (Auto) 3.5 % Monocytes (%) (Auto) 5.5 % Eosinophils (%) (Auto) 1.0 % Basophils (%) (Auto) 0.1 % Neutrophils # (Auto) 8.9 TH/MM3 Lymphocytes # (Auto) 0.3 TH/MM3 Monocytes # (Auto) 0.5 TH/MM3 Eosinophils # (Auto) 0.1 TH/MM3 Basophils # (Auto) 0.0 TH/MM3 CBC Comment DIFF FINAL Differential Comment Laboratory Tests Test 01/08/18 07:20 01/08/18 12:23 01/09/18 05:30 Creatinine 1.39 MG/DL 1.66 MG/DL 1.68 MG/DL Estimat Glomerular Filtration Rate 37 ML/MIN 31 ML/MIN 30 ML/MIN Troponin I 0.68 NG/ML Blood Urea Nitrogen 35 MG/DL 48 MG/DL Random Glucose 203 MG/DL 185 MG/DL Calcium Level 8.8 MG/DL 8.3 MG/DL Sodium Level 132 MEQ/L 133 MEQ/L Potassium Level 5.4 MEQ/L 5.4 MEQ/L Chloride Level 101 MEQ/L 103 MEQ/L Carbon Dioxide Level 22.7 MEQ/L 20.6 MEQ/L Anion Gap 8 MEQ/L 9 MEQ/L Total Creatine Kinase 179 U/L 137 U/L Total Protein 6.6 GM/DL Albumin 2.4 GM/DL Phosphorus Level 5.5 MG/DL Magnesium Level 3.0 MG/DL Alkaline Phosphatase 236 U/L Aspartate Amino Transf (AST/SGOT) 164 U/L Alanine Aminotransferase (ALT/SGPT) 264 U/L Total Bilirubin 0.3 MG/DL Microbiology Date/Time Source Procedure Growth Status 01/07/18 15:56 Fluid Other Gram Stain - Final Complete 01/07/18 15:56 Body Fluid Culture - Final Staphylococcus Aureus Complete 01/08/18 18:15 Wound Hip Fungal Smear - Final NO FUNGAL ELEMENTS SEEN. Resulted 01/08/18 18:15 Wound Hip Fungal Culture Pending Resulted 01/08/18 18:15 Wound Hip Acid Fast Stain Pending Received 2/27/18 18:15 Wound Hip Mycobacterial Culture Pending Received 01/08/18 18:15 Wound Hip Gram Stain - Final Resulted 01/08/18 18:15 Wound Hip Wound Culture Pending Resulted Microbiology Date/Time Source Procedure Growth Status 01/06/18 10:45 Blood Peripheral Aerobic Blood Culture - Preliminary Staphylococcus Aureus Resulted 01/06/18 10:45 Anaerobic Blood Culture - Preliminary Staphylococcus Aureus Resulted 01/06/18 10:40 Blood Peripheral Aerobic Blood Culture - Preliminary Staphylococcus Aureus Resulted 01/06/18 10:40 Anaerobic Blood Culture - Preliminary Staphylococcus Aureus Resulted 01/07/18 15:56 Fluid Other Gram Stain - Final Resulted 01/07/18 15:56 Body Fluid Culture - Preliminary Staphylococcus Aureus Resulted IMAGING: Renal Ultrasound 01/09/18 Signed Impressions: Service Date/Time: Tuesday, January 09, 2018 08:06 - CONCLUSION: 1. No abnormality is identified to explain the abnormal laboratory values. Right kidney demonstrates no hydronephrosis. 2. Suspected hepatic steatosis with nodular areas appearing within the visualized portions. This may represent atypical steatosis but this should be further evaluated at some point with liver MRI with and without intravenous contrast. Ceasar Oh MD Hip Aspiration/Injection 01/07/181999 Signed Impressions: Service Date/Time: Sunday, January 07, 2018 15:44 - CONCLUSION: Uncomplicated fluoroscopic guided left hip aspiration as above. Ceasar Parikh MD Chest X-Ray 01/07/18 Signed Impressions: Service Date/Time: Sunday, January 07, 2018 04:31 - CONCLUSION: 1. Cardiomegaly with mild positive fluid balance. Doug Hurtado MD Hip and Pelvis X-Ray 01/06/18 Signed Impressions: Service Date/Time: Saturday, January 06, 2018 11:38 - CONCLUSION: Arthritic change at the left hip joint. Ceasar Lopez MD Hip MRI 01/06/18 Signed Impressions: Service Date/Time: Saturday, January 06, 2018 12:37 - CONCLUSION: Left hip joint effusion with joint space narrowing and surrounding enhancement. This can be secondary to underlying arthritis. Some peripheral inflammatory change from effusion could cause this appearance. Infection cannot be excluded in the correct clinical situation. However, given the osteophytes, much of this may be from chronic change. The edema within the adductor muscles and distal gluteal musculature could be from strain. Ceasar Lopez MD PHYSICAL EXAMINATION: GENERAL: Alert and oriented. No acute distress. HEENT: Extraocular movements grossly intact, pupils reactive to light. No icterus. Oropharynx has moist mucosa. Neck: Supple without adenopathy. Lungs: Basilar rhonchi. Heart: Regular S1-S2. No murmurs, rubs, or gallops. Abdomen: Bowel sounds present, soft, nontender. EXTREMITIES: No edema, no erythema. SKIN: No rash. NEUROLOGIC: No gross focal findings. PSYCHIATRIC: Calm and cooperative. Has a Salcedo catheter that has clear light yellow urine. IMPRESSION 1. Septic arthritis of the left hip - Staph aureus sensitive to oxacillin.. 2. Bacteremia - staph aureus. 3. Leukocytosis. Improved. 4. Acute on Chronic kidney disease. RECOMMENDATIONS 1. Stop Vancomycin because of the worsening renal function. 2. Stop Cubicin. 3. Begin Cefazolin intravenous. The patient states that her allergy to penicillin occurred when she was approximately 12 years old. She has been able to tolerate Keflex. The cefazolin will be adjusted Because of her renal function. The family plans to fly the patient back to [place] when she is stable enough for travel. They would be following up with her primary physician and an infectious disease physician as well When she gets back to [place]. 3. Monitor the temperature 4. Follow renal function. 5. Continue to monitor her clinical status. D/W patient and at bedside. D/W RN. Rahul Aguirre MD Jan 09, 2018 14:40
[2018-01-10] VITALS (8 sets, daily range): BP systolic 98–131; BP diastolic 53–59; PULSE 58–73; RESP 17–129; TEMP 97.7–99.3; O2SAT 95–100
[2018-01-10] MEDS: LACTATED RINGER'S 1000 ML INJ 1,000 ML IV SCH ×2 (00:19→07:28)
[2018-01-10] MEDS: SODIUM CHLOR 0.9% 1000 ML INJ 1,000 ML IV SCH ×3 (02:01→20:43)
[2018-01-10] MEDS: oxyCODONE/ACETAMINOPHEN 5 MG/325 MG TAB PO PRN (02:06)
[2018-01-10] MEDS: CHLORHEXIDINE GLUCONATE 2 % 1 PACK (2 CLOTHS)(taper/protocol) TOPICAL SCH (04:00)
[2018-01-10 05:11] LABS: AUTOMATED NEUTROPHIL # 4.7 TH/MM3 (1.8-7.7); BASOPHIL % 0.2 % (0.0-2.0); EOSINOPHIL # 0.2 TH/MM3 (0-0.4); EOSINOPHIL % 3.9 % (0.0-4.0); HEMATOCRIT 26.2 % (35.0-46.0); HEMOGLOBIN 8.6 GM/DL (11.6-15.3); LYMPH % 7.4 % (9.0-44.0); LYMPHOCYTE # 0.4 TH/MM3 (1.0-4.8); MEAN CELL VOLUME 81.1 FL (80.0-100.0); MEAN CORPUSCULAR HEMOGLOBIN 26.8 PG (27.0-34.0); MEAN PLATELET VOLUME 8.4 FL (7.0-11.0); MONO % 9.8 % (0.0-8.0); MONOCYTE # 0.6 TH/MM3 (0-0.9); NEUT % 78.7 % (16.0-70.0); PLATELET COUNT 243 TH/MM3 (150-450); RED BLOOD COUNT 3.23 MIL/MM3 (4.00-5.30); RED CELL DISTRIBUTION WIDTH 16.9 % (11.6-17.2)
[2018-01-10 05:30] LABS: CALCIUM 8.2 MG/DL (8.5-10.1); CREATININE 1.27 MG/DL (0.50-1.00)
[2018-01-10] MEDS: SODIUM BICARBONATE 650 MG TAB PO SCH ×4 (06:00→20:36)
[2018-01-10] MEDS: ENOXAPARIN SODIUM 30 MG/0.3 ML SYRINGE SQ SCH ×2 (06:22→06:33)
--- NOTE | 2018-01-10 08:39 | PD.ORT.PN ---
Subjective Post Op Day #: 2 Subjective Remarks POD #2 left hip I&D The patient is awake and alert and lying in bed. She looks much improved. at bedside. She states she does have pain with attempted ROM but it is a 'different pain'. She admits she did get up to a chair yesterday. States her daughter will come down to help with flying back home early next week. Objective Vitals Vital Signs Date Time Temp Pulse Resp B/P (MAP) Pulse Ox O2 Delivery O2 Flow Rate FiO2 01/10/18 04:00 58 01/10/18 04:00 97.7 58 129 101/59 (73) 97 01/10/18 03:06 20 01/10/18 00:00 98.1 60 20 98/53 (68) 95 01/10/18 00:00 60 01/09/18 20:00 63 01/09/18 20:00 98.3 63 22 106/60 (75) 99 01/09/18 19:40 99 21 01/09/18 16:00 100 Nasal Cannula 2.00 01/09/18 16:00 97.7 60 17 105/54 (71) 100 01/09/18 16:00 60 01/09/18 12:00 97.6 54 17 107/54 (71) 100 01/09/18 12:00 54 01/09/18 12:00 100 2.00 01/09/18 10:00 58 01/09/18 08:34 100 Nasal Cannula I/O 01/09/18 01/09/18 01/09/18 01/10/18 01/10/18 01/10/18 07:00 15:00 23:00 07:00 15:00 23:00 Intake Total 1480 ml 720 ml 720 ml Output Total 900 ml 495 ml 1050 ml Balance 580 ml 225 ml -330 ml Intake Oral 480 ml 720 ml 720 ml IV Total 1000 ml Output Urine Total 900 ml 425 ml 1050 ml Drainage Total 70 ml # Bowel Movements 0 0 0 Result Diagram: 01/10/18 0455 01/10/18 0455 Imaging Last 24 hours Impressions Hip Aspiration/Injection 01/07/181999 Signed Impressions: Service Date/Time: Sunday, January 07, 2018 15:44 - CONCLUSION: Uncomplicated fluoroscopic guided left hip aspiration as above. Ceasar Parikh MD Procedures Incision and drainage left hip 01/08/18, Dean Objective Remarks Left hip: Dressing dry and intact. Drain in place. Tender to palpation with mild swelling around incision site. Mild pain with range of motion expected post operatively. Freely able to move distal digits. No calf pain. Negative Betzaida's sign. Good cap refill. 2+ pedal pulses. Neurovascular intact. Assessment & Plan Problem List: (1) Septic arthritis of hip ICD Codes: M00.9 - Pyogenic arthritis, unspecified Qualifiers: Qualified Codes: M00.052 - Staphylococcal arthritis, left hip Assessment and Plan POD #2 Incision and drainage left hip Ortho status stable Progress rehab, w/b as tolerated, up to chair Daily dressing changes with primapore Ok to d/c drain Lovenox for DVT prophylaxis, ok to transition to ASA 81mg BID for 20 days after surgery. Hip Aspiration and surgical tissue grew Staph Aureus custodial Abx per ID Clear for d/c from an orthopedic standpoint - colleague available over weekend with any questions Would rec. HHC. C RN to d/c zachary POD #8 01/16/18 F/U with orthopedist back home for wound check in 2 weeks. Farida Garcia Jan 10, 2018 08:39
[2018-01-10] MEDS: ATENOLOL 50 MG TAB PO SCH (09:00)
[2018-01-10] MEDS: PRAVASTATIN SOD 80 MG TAB PO SCH (09:00)
[2018-01-10] MEDS: SERTRALINE HCL 100 MG TAB PO SCH (09:00)
[2018-01-10] MEDS: SODIUM CHLORIDE 0.9% FLUSH 10 ML FLUSH IV FLUSH SCH ×3 (09:00→20:36)
[2018-01-10] MEDS: ASPIRIN EC 81 MG TABEC PO SCH (09:00)
[2018-01-10] MEDS: MAGNESIUM OXIDE 400 MG TAB PO SCH (09:00)
[2018-01-10] MEDS: DOCUSATE SODIUM 50 MG/SENNA 8.6 MG TAB PO SCH ×2 (09:00→20:36)
[2018-01-10] MEDS: ALOSETRON 1 MG PO SCH ×2 (09:00→20:37)
[2018-01-10] MEDS: FAMOTIDINE 20 MG/2 ML VIAL IV PUSH SCH ×2 (09:00→20:36)
[2018-01-10] MEDS: INSULIN ASPART SUPPLEMENTAL SCALE SQ SCH ×4 (09:05→20:21)
[2018-01-10] MEDS ORDERED: KETOROLAC TROMETHAMINE 30 MG/ML (IVP) VIAL IV PUSH ONE (12:00)
--- NOTE | 2018-01-10 13:06 | HHI.IDPN ---
Note Infectious Disease Note Patient states she had pain in the left hip earlier. She received Toradol. She is awake and alert. He has a Hemovac catheter in place in the left hip which has sanguinous drainage. Afebrile. Denies chills. Denies nausea. Start up on side of the bed. Tolerating cefazolin. Blood cultures - Staph aureus. Sensitive to oxacillin. Hip aspirate - Staph aureus. Sensitive to oxacillin. Patient underwent irrigation and debridement of the left hip on 01/08. Culture from the hip wound from 227 also has staph aureus. 72-year-old white female who was brought to the emergency department because of left hip pain. The patient and her are on vacation from [place]. She developed pain in the left hip and was evaluated at an [facility] five days ago. She was given pain medication and prednisone since it was felt that it was likely due to bursitis. However, the pain persisted and three days ago the patient's had to get a wheelchair because she had difficulty ambulating and eventually he brought her to the emergency department for evaluation. PAST MEDICAL HISTORY/PAST SURGICAL HISTORY 1. Oqxgk-[id number]-Jyxuf syndrome. 2. Diabetes mellitus. 3. Irritable bowel syndrome. 4. 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 5. Left knee arthroscopic surgery in 1985. 6. Cholecystectomy. 7. Breast lump resection. 8. History of laser surgery of the nose. 9. 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 ALLERGIES PENICILLIN. BACTRIM. ANTIBIOTICS: Cefazolin. Current Medications Medications (Trade) Dose Ordered Sig/Dalia Route PRN Reason Start Time Stop Time Status Last Admin Dose Admin Sodium Chloride (NS Flush) 2 ml UNSCH PRN IV FLUSH FLUSH AFTER USING IV ACCESS 01/06/18 12:45 Sodium Chloride (NS Flush) 2 ml BID IV FLUSH 01/06/18 21:00 01/10/18 09:06 Acetaminophen (Tylenol) 650 mg Q4H PRN PO TEMP > 100.4 01/06/18 12:45 01/06/18 23:51 Ondansetron HCl (Zofran Inj) 4 mg Q6H PRN IVP NAUSEA OR VOMITING 01/06/18 12:45 Acetaminophen (Tylenol) 650 mg Q6H PRN PO PAIN SCALE 1 TO 2 01/06/18 12:45 Naloxone HCl (Narcan Inj) 0.4 mg UNSCH PRN IV PUSH SEE LABEL COMMENTS 01/06/18 12:45 Senna/Docusate Sodium (Deidra-Colace) 1 tab BID PO 01/06/18 21:00 01/10/18 09:00 Magnesium Hydroxide (Milk Of Magnesia Liq) 30 ml Q12H PRN PO Mild constipation 01/06/18 12:45 01/07/18 23:14 Sennosides (Senokot) 17.2 mg Q12H PRN PO Moderate constipation 01/06/18 12:45 Bisacodyl (Dulcolax Supp) 10 mg DAILY PRN RECTAL SEVERE CONSITIPATION 01/06/18 12:45 Lactulose (Lactulose Liq) 30 ml DAILY PRN PO SEVERE CONSITIPATION 01/06/18 12:45 Hydromorphone HCl (Dilaudid Pf Inj) 1 mg Q4H PRN IV BREAKTHROUGH PAIN 01/06/18 18:00 01/09/18 04:38 Sertraline HCl (Zoloft) 100 mg DAILY PO 01/07/18 09:00 01/10/18 09:00 Patient Own Medication PT OWN MED:(Alosetron (Lotronex... BID PO 01/06/18 21:00 Magnesium Oxide (Mag-Ox) 400 mg DAILY PO 01/07/18 09:00 01/08/18 08:10 Pravastatin Sodium (Pravachol) 80 mg DAILY PO 01/07/18 09:00 01/10/18 09:00 Dextrose (D50w (Vial) Inj) 50 ml UNSCH PRN IV PUSH HYPOGLYCEMIA-SEE COMMENTS 01/06/18 18:15 Glucagon (Glucagon Inj) 1 mg UNSCH PRN OTHER HYPOGLYCEMIA-SEE COMMENTS 01/06/18 18:15 Insulin Aspart (NovoLOG SUPPLEMENTAL SCALE) 1 ACHS SLIDING SCALE SQ 01/06/18 21:00 01/10/18 09:05 Oxycodone/ Acetaminophen (Percocet 5-325 Mg) 1 tab Q4H PRN PO PAIN SCALE 3 TO 5 01/07/18 15:00 01/10/18 02:06 Atenolol (Tenormin) 50 mg DAILY PO 01/08/18 09:00 01/08/18 08:11 Oxycodone HCl (Roxicodone) 15 mg Q4H PRN PO pain 6-10 01/08/18 10:45 01/08/18 15:54 Povidone Iodine (Betadine 5% Antisepsis Kit) 1 applic ADJUNCT PHYSICAL EDUCATION INSTRUCTOR PRN EACH NARE SEE LABEL COMMENTS 01/08/18 12:45 01/11/18 12:44 Chlorhexidine Gluconate (Chlorhexidine 2% Cloth) 3 pack ADJUNCT PHYSICAL EDUCATION INSTRUCTOR PRN TOPICAL SEE LABEL COMMENTS 01/08/18 12:45 01/11/18 12:44 Lactated Ringer's 1,000 ml @ 100 mls/hr Q10H IV 01/08/18 18:46 Sodium Chloride (NS Flush) 2 ml UNSCH PRN IV FLUSH FLUSH AFTER USING IV ACCESS 01/08/18 19:00 Sodium Chloride (NS Flush) 2 ml BID IV FLUSH 01/08/18 21:00 Enoxaparin Sodium (Lovenox Inj) 30 mg Q24H SQ 01/09/18 07:00 01/09/18 07:02 Diphenhydramine HCl (Benadryl) 25 mg Q6H PRN PO ITCHING 01/08/18 19:00 Povidone Iodine (Betadine 10% Top Soln) 30 applic UNSCH X1 PRN TOPICAL WOUND CARE 01/08/18 19:00 01/10/18 18:59 Sodium Chloride 1,000 ml @ 100 mls/hr Q10H IV 01/08/18 19:30 01/10/18 11:48 Famotidine (Pepcid Inj) 10 mg Q12HR IV PUSH 01/08/18 22:45 01/10/18 09:00 Miscellaneous Information Patient in critical care unit? Ass... Q361D .XX 01/08/18 23:15 01/08/18 23:11 Chlorhexidine Gluconate (Chlorhexidine 2% Cloth) 3 pack DAILY@04 TOPICAL 01/09/18 04:00 01/13/18 04:01 01/10/18 04:00 Chlorhexidine Gluconate (Chlorhexidine 2% Cloth) 3 pack UNSCH PRN TOPICAL HYGIENIC CARE 01/08/18 23:15 01/13/18 23:05 Aspirin (Ecotrin Ec) 81 mg DAILY PO 01/09/18 11:00 Sodium Bicarbonate (Sodium Bicarbonate) 650 mg Q8HR PO 01/09/18 14:00 01/09/18 22:27 Cefazolin Sodium 1000 mg/Sodium Chloride 100 ml @ 200 mls/hr Q12H IV 01/09/18 18:00 01/10/18 06:22 OBJ: Vital Signs Date Time Temp Pulse Resp B/P (MAP) Pulse Ox O2 Delivery O2 Flow Rate FiO2 01/10/18 12:00 66 01/10/18 12:00 98.2 66 17 117/56 (76) 100 01/10/18 12:00 100 Room Air 01/10/18 08:00 61 01/10/18 08:00 100 Nasal Cannula 2.00 01/10/18 08:00 97.8 61 17 121/57 (78) 100 01/10/18 04:00 58 01/10/18 04:00 97.7 58 129 101/59 (73) 97 01/10/18 03:06 20 01/10/18 00:00 98.1 60 20 98/53 (68) 95 01/10/18 00:00 60 01/09/18 20:00 63 01/09/18 20:00 98.3 63 22 106/60 (75) 99 01/09/18 19:40 99 21 01/09/18 16:00 100 Nasal Cannula 2.00 01/09/18 16:00 97.7 60 17 105/54 (71) 100 01/09/18 16:00 60 Laboratory Tests Test 01/09/18 05:30 01/10/18 04:55 White Blood Count 9.9 TH/MM3 6.0 TH/MM3 Red Blood Count 3.52 MIL/MM3 3.23 MIL/MM3 Hemoglobin 9.4 GM/DL 8.6 GM/DL Hematocrit 28.7 % 26.2 % Mean Corpuscular Volume 81.3 FL 81.1 FL Mean Corpuscular Hemoglobin 26.8 PG 26.8 PG Mean Corpuscular Hemoglobin Concent 32.9 % 33.0 % Red Cell Distribution Width 16.7 % 16.9 % Platelet Count 228 TH/MM3 243 TH/MM3 Mean Platelet Volume 8.5 FL 8.4 FL Neutrophils (%) (Auto) 89.9 % 78.7 % Lymphocytes (%) (Auto) 3.5 % 7.4 % Monocytes (%) (Auto) 5.5 % 9.8 % Eosinophils (%) (Auto) 1.0 % 3.9 % Basophils (%) (Auto) 0.1 % 0.2 % Neutrophils # (Auto) 8.9 TH/MM3 4.7 TH/MM3 Lymphocytes # (Auto) 0.3 TH/MM3 0.4 TH/MM3 Monocytes # (Auto) 0.5 TH/MM3 0.6 TH/MM3 Eosinophils # (Auto) 0.1 TH/MM3 0.2 TH/MM3 Basophils # (Auto) 0.0 TH/MM3 0.0 TH/MM3 CBC Comment DIFF FINAL DIFF FINAL Differential Comment Laboratory Tests Test 01/09/18 05:30 01/10/18 04:55 Blood Urea Nitrogen 48 MG/DL 48 MG/DL Creatinine 1.68 MG/DL 1.27 MG/DL Random Glucose 185 MG/DL 158 MG/DL Total Protein 6.6 GM/DL Albumin 2.4 GM/DL Calcium Level 8.3 MG/DL 8.2 MG/DL Phosphorus Level 5.5 MG/DL Magnesium Level 3.0 MG/DL Alkaline Phosphatase 236 U/L Aspartate Amino Transf (AST/SGOT) 164 U/L Alanine Aminotransferase (ALT/SGPT) 264 U/L Total Bilirubin 0.3 MG/DL Sodium Level 133 MEQ/L 134 MEQ/L Potassium Level 5.4 MEQ/L 4.4 MEQ/L Chloride Level 103 MEQ/L 103 MEQ/L Carbon Dioxide Level 20.6 MEQ/L 22.0 MEQ/L Anion Gap 9 MEQ/L 9 MEQ/L Estimat Glomerular Filtration Rate 30 ML/MIN 42 ML/MIN Total Creatine Kinase 137 U/L Microbiology Date/Time Source Procedure Growth Status 01/07/18 15:56 Fluid Other Gram Stain - Final Complete 01/07/18 15:56 Body Fluid Culture - Final Staphylococcus Aureus Complete 01/08/18 18:15 Wound Hip Fungal Smear - Final NO FUNGAL ELEMENTS SEEN. Resulted 01/08/18 18:15 Wound Hip Fungal Culture Pending Resulted 01/08/18 18:15 Wound Hip Acid Fast Stain - Final NO ACID FAST BACILLI SEEN Resulted 01/08/18 18:15 Wound Hip Mycobacterial Culture Pending Resulted 01/08/18 18:15 Wound Hip Gram Stain - Final Complete 01/08/18 18:15 Wound Culture - Final Staphylococcus Aureus Complete IMAGING: Renal Ultrasound 01/09/18 Signed Impressions: Service Date/Time: Tuesday, January 09, 2018 08:06 - CONCLUSION: 1. No abnormality is identified to explain the abnormal laboratory values. Right kidney demonstrates no hydronephrosis. 2. Suspected hepatic steatosis with nodular areas appearing within the visualized portions. This may represent atypical steatosis but this should be further evaluated at some point with liver MRI with and without intravenous contrast. Ceasar Oh MD Hip Aspiration/Injection 01/07/181999 Signed Impressions: Service Date/Time: Sunday, January 07, 2018 15:44 - CONCLUSION: Uncomplicated fluoroscopic guided left hip aspiration as above. Ceasar Parikh MD Chest X-Ray 01/07/18 Signed Impressions: Service Date/Time: Sunday, January 07, 2018 04:31 - CONCLUSION: 1. Cardiomegaly with mild positive fluid balance. Doug Hurtado MD Hip and Pelvis X-Ray 01/06/18 Signed Impressions: Service Date/Time: Saturday, January 06, 2018 11:38 - CONCLUSION: Arthritic change at the left hip joint. Ceasar Lopez MD Hip MRI 01/06/18 Signed Impressions: Service Date/Time: Saturday, January 06, 2018 12:37 - CONCLUSION: Left hip joint effusion with joint space narrowing and surrounding enhancement. This can be secondary to underlying arthritis. Some peripheral inflammatory change from effusion could cause this appearance. Infection cannot be excluded in the correct clinical situation. However, given the osteophytes, much of this may be from chronic change. The edema within the adductor muscles and distal gluteal musculature could be from strain. Ceasar Lopez MD PHYSICAL EXAMINATION: GENERAL: Alert and oriented. No acute distress. HEENT: Extraocular movements grossly intact, pupils reactive to light. No icterus. Oropharynx has moist mucosa. Neck: Supple without adenopathy. Lungs: Basilar rhonchi. Heart: Regular S1-S2. No murmurs, rubs, or gallops. Abdomen: Bowel sounds present, soft, nontender. EXTREMITIES: No edema, no erythema. Right hip has Hemovac in place. SKIN: No rash. NEUROLOGIC: No gross focal findings. PSYCHIATRIC: Calm and cooperative. Salcedo catheter has clear light yellow urine. IMPRESSION 1. Septic arthritis of the left hip - Staph aureus sensitive to oxacillin. 2. Bacteremia - staph aureus. Sensitive to oxacillin. 3. Leukocytosis. Improved. 4. Acute on Chronic kidney disease. Kidney function improving. 5. Liver function tests has increased. RECOMMENDATIONS 1. Continue cefazolin intravenous. The patient states that her allergy to penicillin occurred when she was approximately 12 years old. She has been able to tolerate Keflex. The cefazolin will be adjusted Because of her renal function. The family plans to fly the patient back to [place] when she is stable enough for travel. They would be following up with her primary physician and an infectious disease physician as well When she gets back to [place]. 2. Monitor the temperature 3. Follow renal function. 4. Continue to monitor her clinical status. 5. Remove Salcedo catheter as soon as possible. Anticipate discharge once she is cleared by orthopedics. The antibiotic can be changed to Rocephin at time of discharge which will give her longer duration since she is traveling back to [place] and once she gets to [place] her antibiotic management and be arranged there. Rahul Aguirre MD Jan 10, 2018 13:06
--- NOTE | 2018-01-10 15:59 | HHI.NPPN ---
Subjective History of Present Illness 72 year old with septic arthritis L hip s/p I&D with ARF Objective Data Data Vital Signs Date Time Temp Pulse Resp B/P (MAP) Pulse Ox O2 Delivery O2 Flow Rate FiO2 01/10/18 12:00 66 01/10/18 12:00 98.2 66 17 117/56 (76) 100 01/10/18 12:00 100 Room Air 01/10/18 08:00 61 01/10/18 08:00 100 Nasal Cannula 2.00 01/10/18 08:00 97.8 61 17 121/57 (78) 100 01/10/18 04:00 58 01/10/18 04:00 97.7 58 129 101/59 (73) 97 01/10/18 03:06 20 01/10/18 00:00 98.1 60 20 98/53 (68) 95 01/10/18 00:00 60 01/09/18 20:00 63 01/09/18 20:00 98.3 63 22 106/60 (75) 99 01/09/18 19:40 99 21 01/09/18 16:00 100 Nasal Cannula 2.00 01/09/18 16:00 97.7 60 17 105/54 (71) 100 01/09/18 16:00 60 -: 01/10/18 0455 01/10/18 0455 Physical Exam General Appearance: Well Developed, Well Nourished Neck Neck Exam: Neck Supple Pulmonary Resp Exam: Clear Bilaterally, Breath Sounds Equal Cardiology CV Exam: Regular, Normal Sinus Rhythm Gastrointestinal/Abdomen GI Exam: Soft, Non-Tender, Bowel Sounds Present Extremeties Extremities Exam: Trace Edema Assessment/Plan Problem List: (1) Acute renal failure ICD Codes: N17.9 - Acute kidney failure, unspecified Plan: This is likely due to sepsis with staph aureus infection, Resolving Agree with IV fluid NS 100 cc an hour Ultrasound right kidney no hydronephrosis, possible liver steatosis Given sodium bicarbonate Avoid nephrotoxins Avoid nonsteroidal anti-inflammatory drugs Acidosis resolved High K resolved (2) Septic arthritis of hip ICD Codes: M00.9 - Pyogenic arthritis, unspecified Plan: On Cefazolin (3) Effusion of hip joint, left ICD Codes: M25.452 - Effusion, left hip Plan: Cultures growing staph aureus Problem Qualifiers (1) Septic arthritis of hip: Qualified Codes: M00.052 - Staphylococcal arthritis, left hip Isadora Rosario MD Jan 10, 2018 15:59
--- NOTE | 2018-01-10 17:52 | HHI.PR ---
Subjective Remarks as per RN no BM since patient has been in the hospital Creatinine is trending down. Vitals signs stable As per RN patient has been sleepy most of the day - she thinks opiates are making her sleepy Objective Vitals Vital Signs Date Time Temp Pulse Resp B/P (MAP) Pulse Ox O2 Delivery O2 Flow Rate FiO2 01/10/18 16:00 100 Room Air 01/10/18 16:00 98.1 65 17 131/59 (83) 99 01/10/18 16:00 67 01/10/18 12:00 66 01/10/18 12:00 98.2 66 17 117/56 (76) 100 01/10/18 12:00 100 Room Air 01/10/18 08:15 100 21 01/10/18 08:00 61 01/10/18 08:00 100 Nasal Cannula 2.00 01/10/18 08:00 97.8 61 17 121/57 (78) 100 01/10/18 04:00 58 01/10/18 04:00 97.7 58 129 101/59 (73) 97 01/10/18 03:06 20 01/10/18 00:00 98.1 60 20 98/53 (68) 95 01/10/18 00:00 60 01/09/18 20:00 63 01/09/18 20:00 98.3 63 22 106/60 (75) 99 01/09/18 19:40 99 21 I/O 01/09/18 01/09/18 01/09/18 01/10/18 01/10/18 01/10/18 07:00 15:00 23:00 07:00 15:00 23:00 Intake Total 1480 ml 720 ml 720 ml Output Total 900 ml 495 ml 1050 ml Balance 580 ml 225 ml -330 ml Intake Oral 480 ml 720 ml 720 ml IV Total 1000 ml Output Urine Total 900 ml 425 ml 1050 ml Drainage Total 70 ml # Bowel Movements 0 0 0 Result Diagram: 01/10/18 0455 01/10/18 0455 Imaging Last Impressions Renal Ultrasound 01/09/18 0000 Signed Impressions: Service Date/Time: Tuesday, January 09, 2018 08:06 - CONCLUSION: 1. No abnormality is identified to explain the abnormal laboratory values. Right kidney demonstrates no hydronephrosis. 2. Suspected hepatic steatosis with nodular areas appearing within the visualized portions. This may represent atypical steatosis but this should be further evaluated at some point with liver MRI with and without intravenous contrast. Ceasar Oh MD Myocardial Perfusion Scan [facility] 01/08/18 Signed Impressions: Service Date/Time: Monday, January 08, 2018 13:56 - CONCLUSION: 1. No fixed or reversible perfusion defect is identified. 2. Global hypokinesia with reduced ejection fraction calculated at 44%%. RISK CATEGORY: Intermediate (1-3%% Annual Mortality Rate) Ceasar Oh MD Hip Aspiration/Injection 01/07/181999 Signed Impressions: Service Date/Time: Sunday, January 07, 2018 15:44 - CONCLUSION: Uncomplicated fluoroscopic guided left hip aspiration as above. Ceasar Parikh MD Chest X-Ray 01/07/18 Signed Impressions: Service Date/Time: Sunday, January 07, 2018 04:31 - CONCLUSION: 1. Cardiomegaly with mild positive fluid balance. Doug Hurtado MD Hip and Pelvis X-Ray 01/06/18 Signed Impressions: Service Date/Time: Saturday, January 06, 2018 11:38 - CONCLUSION: Arthritic change at the left hip joint. Ceasar Lopez MD Hip MRI 01/06/18 Signed Impressions: Service Date/Time: Saturday, January 06, 2018 12:37 - CONCLUSION: Left hip joint effusion with joint space narrowing and surrounding enhancement. This can be secondary to underlying arthritis. Some peripheral inflammatory change from effusion could cause this appearance. Infection cannot be excluded in the correct clinical situation. However, given the osteophytes, much of this may be from chronic change. The edema within the adductor muscles and distal gluteal musculature could be from strain. Ceasar Lopez MD Objective Remarks GENERAL: Well-nourished, well-developed patient. SKIN: Warm and dry. HEAD: Normocephalic. EYES: No scleral icterus. No injection or drainage. NECK: Supple, trachea midline. No JVD or lymphadenopathy. CARDIOVASCULAR: Regular rate and rhythm without murmurs, gallops, or rubs. RESPIRATORY: Breath sounds equal bilaterally. No accessory muscle use. GASTROINTESTINAL: Abdomen soft, non-tender, nondistended. MUSCULOSKELETAL: Limited range of motion of left hip due to severe pain. Incision dressing intact BACK: Nontender without obvious deformity. NEURO EXAM: The patient is alert and oriented to person, place, and time with normal speech. No focal deficit Procedures Joint aspiration Medications and IVs Current Medications Medications (Trade) Dose Ordered Sig/Dalia Route Start Time Stop Time Status Last Admin (Tylenol) 650 mg Q4H PRN PO 01/06/18 12:45 01/06/18 23:51 (Zofran Inj) 4 mg Q6H PRN IVP 01/06/18 12:45 (Narcan Inj) 0.4 mg UNSCH PRN IV PUSH 01/06/18 12:45 (Deidra-Colace) 1 tab BID PO 01/06/18 21:00 01/10/18 20:36 (Milk Of Magnesia Liq) 30 ml Q12H PRN PO 01/06/18 12:45 01/07/18 23:14 (Senokot) 17.2 mg Q12H PRN PO 01/06/18 12:45 (Lactulose Liq) 30 ml DAILY PRN PO 01/06/18 12:45 (Zoloft) 100 mg DAILY PO 01/07/18 09:00 01/10/18 09:00 Patient Own Medication PT OWN MED:(Alosetron (Lotronex... BID PO 01/06/18 21:00 (Mag-Ox) 400 mg DAILY PO 01/07/18 09:00 01/08/18 08:10 (Pravachol) 80 mg DAILY PO 01/07/18 09:00 01/10/18 09:00 (D50w (Vial) Inj) 50 ml UNSCH PRN IV PUSH 01/06/18 18:15 (Glucagon Inj) 1 mg UNSCH PRN OTHER 01/06/18 18:15 (NovoLOG SUPPLEMENTAL SCALE) 1 ACHS SLIDING SCALE SQ 01/06/18 21:00 01/10/18 09:05 (Tenormin) 50 mg DAILY PO 01/08/18 09:00 01/08/18 08:11 (Betadine 5% Antisepsis Kit) 1 applic VOLTMETER OPERATOR PRN EACH NARE 01/08/18 12:45 01/11/18 12:44 (Chlorhexidine 2% Cloth) 3 pack VOLTMETER OPERATOR PRN TOPICAL 01/08/18 12:45 01/11/18 12:44 (NS Flush) 2 ml UNSCH PRN IV FLUSH 01/08/18 19:00 (NS Flush) 2 ml BID IV FLUSH 01/08/18 21:00 01/10/18 20:36 (Lovenox Inj) 30 mg Q24H SQ 01/09/18 07:00 01/09/18 07:02 (Benadryl) 25 mg Q6H PRN PO 01/08/18 19:00 Sodium Chloride 1,000 ml @ 100 mls/hr Q10H IV 01/08/18 19:30 01/10/18 20:43 (Pepcid Inj) 10 mg Q12HR IV PUSH 01/08/18 22:45 01/10/18 20:36 Miscellaneous Information Patient in critical care unit? Ass... Q361D .XX 01/08/18 23:15 01/08/18 23:11 (Chlorhexidine 2% Cloth) 3 pack DAILY@04 TOPICAL 01/09/18 04:00 01/13/18 04:01 01/10/18 04:00 (Chlorhexidine 2% Cloth) 3 pack UNSCH PRN TOPICAL 01/08/18 23:15 01/13/18 23:05 (Ecotrin Ec) 81 mg DAILY PO 01/09/18 11:00 (Sodium Bicarbonate) 650 mg Q8HR PO 01/09/18 14:00 01/11/18 04:18 Cefazolin Sodium 1000 mg/Sodium Chloride 100 ml @ 200 mls/hr Q12H IV 01/09/18 18:00 01/11/18 04:18 (Ultram) 50 mg Q8H PRN PO 01/10/18 18:30 01/11/18 04:19 (Dilaudid Pf Inj) 0.5 mg Q4H PRN IV 01/10/18 22:00 01/11/18 00:53 (Dulcolax Supp) 10 mg DAILY PRN RECTAL 01/10/18 18:30 A/P Problem List: (1) Septic arthritis of hip ICD Code: M00.9 - Pyogenic arthritis, unspecified (2) Acute renal failure ICD Code: N17.9 - Acute kidney failure, unspecified Assessment and Plan Septic arthritis with staph aureus - Status post I&D by Dr. Moran - Staphylococcal infection - Antibiotics per ID (currently on Daptomycin-consider changing to Rocephin. PCN allergy listed as mild) -Septic arthritis management per ID and orthopedic surgery Acute kidney injury - due to sepsis with staph aureus infection - Continue with IV fluid NS 100 cc an hour - Avoid nephrotoxins - Avoid nonsteroidal anti-inflammatory drugs - Nephrology following Diabetes mellitus type 2 - Hold metformin - Accu-Cheks, insulin sliding scale Elevated troponin - Underlying kidney failure - Negative stress test. Most likely demand ischemia - Place on aspirin 81 mg daily. - Cannot use beta-blockers due to bradycardia and borderline hypotensive Constipation - Bowel Regime eith PRN medications - Discussed with RN Toxic Encephalopathy - Due to opiate medications. - Ordered one dose of Toradol however due to [place] will RX tramadol Bateremia - MSSA bacteremia - Antibiotics as per ID. DVT GI prophylaxis - Teds SCDs - Subcutaneous Lovenox - Pepcid Problem Qualifiers (1) Septic arthritis of hip: Qualified Codes: M00.052 - Staphylococcal arthritis, left hip Carl Veliz MD Jan 10, 2018 17:52
--- NOTE | 2018-01-10 17:53 | HHI.PR ---
Objective Vitals Vital Signs Date Time Temp Pulse Resp B/P (MAP) Pulse Ox O2 Delivery O2 Flow Rate FiO2 01/10/18 16:00 100 Room Air 01/10/18 16:00 98.1 65 17 131/59 (83) 99 01/10/18 16:00 67 01/10/18 12:00 66 01/10/18 12:00 98.2 66 17 117/56 (76) 100 01/10/18 12:00 100 Room Air 01/10/18 08:15 100 21 01/10/18 08:00 61 01/10/18 08:00 100 Nasal Cannula 2.00 01/10/18 08:00 97.8 61 17 121/57 (78) 100 01/10/18 04:00 58 01/10/18 04:00 97.7 58 129 101/59 (73) 97 01/10/18 03:06 20 01/10/18 00:00 98.1 60 20 98/53 (68) 95 01/10/18 00:00 60 01/09/18 20:00 63 01/09/18 20:00 98.3 63 22 106/60 (75) 99 01/09/18 19:40 99 21 I/O 01/09/18 01/09/18 01/09/18 01/10/18 01/10/18 01/10/18 07:00 15:00 23:00 07:00 15:00 23:00 Intake Total 1480 ml 720 ml 720 ml Output Total 900 ml 495 ml 1050 ml Balance 580 ml 225 ml -330 ml Intake Oral 480 ml 720 ml 720 ml IV Total 1000 ml Output Urine Total 900 ml 425 ml 1050 ml Drainage Total 70 ml # Bowel Movements 0 0 0 Result Diagram: 01/10/18 0455 01/10/18 0455 Procedures Joint aspiration A/P Problem List: (1) Effusion of hip joint, left ICD Code: M25.452 - Effusion, left hip (2) History of staph infection ICD Code: Z86.19 - Personal history of other infectious and parasitic diseases Carl Veliz MD Jan 10, 2018 17:53
[2018-01-10] MEDS ORDERED: BISACODYL 10 MG SUPP RECTAL PRN (18:30)
[2018-01-10] MEDS: traMADol HCL 50 MG TAB PO PRN (20:37)
[2018-01-10] MEDS ORDERED: HYDROmorphone HCL PF 2 MG/ML VIAL IV PRN (22:00)
[2018-01-11] VITALS (7 sets, daily range): BP systolic 119–136; BP diastolic 57–70; PULSE 55–106; RESP 18–76; TEMP 97.6–99.3; O2SAT 97–99
[2018-01-11] MEDS: CHLORHEXIDINE GLUCONATE 2 % 1 PACK (2 CLOTHS)(taper/protocol) TOPICAL SCH (04:00)
[2018-01-11] MEDS: SODIUM BICARBONATE 650 MG TAB PO SCH ×3 (04:18→21:16)
[2018-01-11] MEDS: traMADol HCL 50 MG TAB PO PRN ×3 (04:19→21:33)
[2018-01-11 05:26] LABS: DIRECT BILIRUBIN ADULT 0.2 MG/DL (0.0-0.2)
[2018-01-11 05:27] LABS: INDIRECT BILIRUBIN 0.2 MG/DL (0.0-0.8); TOTAL BILIRUBIN ADULT 0.4 MG/DL (0.2-1.0); TOTAL PROTEIN 6.4 GM/DL (6.4-8.2)
[2018-01-11] MEDS: ENOXAPARIN SODIUM 30 MG/0.3 ML SYRINGE SQ SCH (05:28)
[2018-01-11] MEDS: INSULIN ASPART SUPPLEMENTAL SCALE SQ SCH ×4 (08:00→21:00)
[2018-01-11] MEDS: ALOSETRON 1 MG PO SCH ×2 (09:00→21:00)
[2018-01-11] MEDS: ATENOLOL 50 MG TAB PO SCH (09:32)
[2018-01-11] MEDS: ASPIRIN EC 81 MG TABEC PO SCH (09:32)
[2018-01-11] MEDS: PRAVASTATIN SOD 80 MG TAB PO SCH (09:32)
[2018-01-11] MEDS: MAGNESIUM OXIDE 400 MG TAB PO SCH (09:32)
[2018-01-11] MEDS: DOCUSATE SODIUM 50 MG/SENNA 8.6 MG TAB PO SCH ×2 (09:32→21:16)
[2018-01-11] MEDS: SERTRALINE HCL 100 MG TAB PO SCH (09:32)
[2018-01-11] MEDS: FAMOTIDINE 20 MG/2 ML VIAL IV PUSH SCH ×2 (09:33→21:16)
[2018-01-11] MEDS: SODIUM CHLORIDE 0.9% FLUSH 10 ML FLUSH IV FLUSH SCH ×2 (09:33→21:00)
[2018-01-11 09:52] LABS: BICARBONATE 19.7 MEQ/L (21.0-32.0); CREATININE 0.88 MG/DL (0.50-1.00)
[2018-01-11] MEDS: SODIUM CHLOR 0.9% 1000 ML INJ 1,000 ML IV SCH ×2 (10:13→14:42)
--- NOTE | 2018-01-11 10:59 | HHI.IDPN ---
Note Infectious Disease Note Patient has occasional pain in the left hip. Hemovac removed. No BM. She is awake and alert. Afebrile. Denies chills. Denies nausea. Has mercado in place. Tolerating cefazolin. Blood cultures - Staph aureus. Sensitive to oxacillin. Hip aspirate - Staph aureus. Sensitive to oxacillin. Patient underwent irrigation and debridement of the left hip on 01/08. Culture from the hip wound from 01/08 also has staph aureus. 72-year-old white female who was brought to the emergency department because of left hip pain. The patient and her are on vacation from [place]. She developed pain in the left hip and was evaluated at an [facility] five days ago. She was given pain medication and prednisone since it was felt that it was likely due to bursitis. However, the pain persisted and three days ago the patient's had to get a wheelchair because she had difficulty ambulating and eventually he brought her to the emergency department for evaluation. PAST MEDICAL HISTORY/PAST SURGICAL HISTORY 1. Azpcb-Luqxf-Nsqtg syndrome. 2. Diabetes mellitus. 3. Irritable bowel syndrome. 4. 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 5. Left knee arthroscopic surgery in 1985. 6. Cholecystectomy. 7. Breast lump resection. 8. History of laser surgery of the nose. 9. 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 ALLERGIES PENICILLIN. BACTRIM. ANTIBIOTICS: Cefazolin. Current Medications Medications (Trade) Dose Ordered Sig/Dalia Route PRN Reason Start Time Stop Time Status Last Admin Dose Admin Acetaminophen (Tylenol) 650 mg Q4H PRN PO TEMP > 100.4 01/06/18 12:45 01/06/18 23:51 Ondansetron HCl (Zofran Inj) 4 mg Q6H PRN IVP NAUSEA OR VOMITING 01/06/18 12:45 Naloxone HCl (Narcan Inj) 0.4 mg UNSCH PRN IV PUSH SEE LABEL COMMENTS 01/06/18 12:45 Senna/Docusate Sodium (Deidra-Colace) 1 tab BID PO 01/06/18 21:00 01/11/18 09:32 Magnesium Hydroxide (Milk Of Magnesia Liq) 30 ml Q12H PRN PO Mild constipation 01/06/18 12:45 01/07/18 23:14 Sennosides (Senokot) 17.2 mg Q12H PRN PO Moderate constipation 01/06/18 12:45 01/11/18 10:08 Lactulose (Lactulose Liq) 30 ml DAILY PRN PO SEVERE CONSITIPATION 01/06/18 12:45 Sertraline HCl (Zoloft) 100 mg DAILY PO 01/07/18 09:00 01/11/18 09:32 Patient Own Medication PT OWN MED:(Alosetron (Lotronex... BID PO 01/06/18 21:00 Magnesium Oxide (Mag-Ox) 400 mg DAILY PO 01/07/18 09:00 01/11/18 09:32 Pravastatin Sodium (Pravachol) 80 mg DAILY PO 01/07/18 09:00 01/11/18 09:32 Dextrose (D50w (Vial) Inj) 50 ml UNSCH PRN IV PUSH HYPOGLYCEMIA-SEE COMMENTS 01/06/18 18:15 Glucagon (Glucagon Inj) 1 mg UNSCH PRN OTHER HYPOGLYCEMIA-SEE COMMENTS 01/06/18 18:15 Insulin Aspart (NovoLOG SUPPLEMENTAL SCALE) 1 ACHS SLIDING SCALE SQ 01/06/18 21:00 01/10/18 09:05 Atenolol (Tenormin) 50 mg DAILY PO 01/08/18 09:00 01/11/18 09:32 Povidone Iodine (Betadine 5% Antisepsis Kit) 1 applic SLIP COVER CUTTER PRN EACH NARE SEE LABEL COMMENTS 01/08/18 12:45 01/11/18 12:44 Chlorhexidine Gluconate (Chlorhexidine 2% Cloth) 3 pack SLIP COVER CUTTER PRN TOPICAL SEE LABEL COMMENTS 01/08/18 12:45 01/11/18 12:44 Sodium Chloride (NS Flush) 2 ml UNSCH PRN IV FLUSH FLUSH AFTER USING IV ACCESS 01/08/18 19:00 Sodium Chloride (NS Flush) 2 ml BID IV FLUSH 01/08/18 21:00 01/11/18 09:33 Enoxaparin Sodium (Lovenox Inj) 30 mg Q24H SQ 01/09/18 07:00 01/09/18 07:02 Diphenhydramine HCl (Benadryl) 25 mg Q6H PRN PO ITCHING 01/08/18 19:00 Sodium Chloride 1,000 ml @ 100 mls/hr Q10H IV 01/08/18 19:30 01/11/18 10:13 Famotidine (Pepcid Inj) 10 mg Q12HR IV PUSH 01/08/18 22:45 01/11/18 09:33 Miscellaneous Information Patient in critical care unit? Ass... Q361D .XX 01/08/18 23:15 01/08/18 23:11 Chlorhexidine Gluconate (Chlorhexidine 2% Cloth) 3 pack DAILY@04 TOPICAL 01/09/18 04:00 01/13/18 04:01 01/10/18 04:00 Chlorhexidine Gluconate (Chlorhexidine 2% Cloth) 3 pack UNSCH PRN TOPICAL HYGIENIC CARE 01/08/18 23:15 01/13/18 23:05 Aspirin (Ecotrin Ec) 81 mg DAILY PO 01/09/18 11:00 01/11/18 09:32 Sodium Bicarbonate (Sodium Bicarbonate) 650 mg Q8HR PO 01/09/18 14:00 01/11/18 04:18 Cefazolin Sodium 1000 mg/Sodium Chloride 100 ml @ 200 mls/hr Q12H IV 01/09/18 18:00 01/11/18 04:18 Tramadol HCl (Ultram) 50 mg Q8H PRN PO PAIN SCALE 1 TO 10 01/10/18 18:30 01/11/18 04:19 Hydromorphone HCl (Dilaudid Pf Inj) 0.5 mg Q4H PRN IV BREAKTHROUGH PAIN 01/10/18 22:00 01/11/18 00:53 Bisacodyl (Dulcolax Supp) 10 mg DAILY PRN RECTAL SEVERE CONSITIPATION 01/10/18 18:30 OBJECTIVE: Vital Signs Date Time Temp Pulse Resp B/P (MAP) Pulse Ox O2 Delivery O2 Flow Rate FiO2 01/11/18 04:00 106 01/11/18 04:00 98.3 106 24 124/62 (82) 97 01/11/18 00:00 71 01/11/18 00:00 99.3 71 23 124/64 (84) 98 01/10/18 20:28 99 21 01/10/18 20:00 99.3 73 27 116/58 (77) 100 01/10/18 20:00 73 3/1/18 16:00 100 Room Air 01/10/18 16:00 98.1 65 17 131/59 (83) 99 01/10/18 16:00 67 01/10/18 12:00 66 01/10/18 12:00 98.2 66 17 117/56 (76) 100 01/10/18 12:00 100 Room Air Laboratory Tests Test 01/10/18 04:55 White Blood Count 6.0 TH/MM3 Red Blood Count 3.23 MIL/MM3 Hemoglobin 8.6 GM/DL Hematocrit 26.2 % Mean Corpuscular Volume 81.1 FL Mean Corpuscular Hemoglobin 26.8 PG Mean Corpuscular Hemoglobin Concent 33.0 % Red Cell Distribution Width 16.9 % Platelet Count 243 TH/MM3 Mean Platelet Volume 8.4 FL Neutrophils (%) (Auto) 78.7 % Lymphocytes (%) (Auto) 7.4 % Monocytes (%) (Auto) 9.8 % Eosinophils (%) (Auto) 3.9 % Basophils (%) (Auto) 0.2 % Neutrophils # (Auto) 4.7 TH/MM3 Lymphocytes # (Auto) 0.4 TH/MM3 Monocytes # (Auto) 0.6 TH/MM3 Eosinophils # (Auto) 0.2 TH/MM3 Basophils # (Auto) 0.0 TH/MM3 CBC Comment DIFF FINAL Differential Comment Laboratory Tests Test 01/10/18 04:55 01/11/18 04:40 Blood Urea Nitrogen 48 MG/DL 29 MG/DL Creatinine 1.27 MG/DL 0.88 MG/DL Random Glucose 158 MG/DL 157 MG/DL Calcium Level 8.2 MG/DL 8.0 MG/DL Sodium Level 134 MEQ/L 138 MEQ/L Potassium Level 4.4 MEQ/L 4.2 MEQ/L Chloride Level 103 MEQ/L 107 MEQ/L Carbon Dioxide Level 22.0 MEQ/L 19.7 MEQ/L Anion Gap 9 MEQ/L 11 MEQ/L Estimat Glomerular Filtration Rate 42 ML/MIN 64 ML/MIN Total Bilirubin 0.4 MG/DL Direct Bilirubin 0.2 MG/DL Indirect Bilirubin 0.2 MG/DL Aspartate Amino Transf (AST/SGOT) 101 U/L Alanine Aminotransferase (ALT/SGPT) 133 U/L Alkaline Phosphatase 452 U/L Total Protein 6.4 GM/DL Albumin 2.0 GM/DL Microbiology Date/Time Source Procedure Growth Status 01/08/18 18:15 Wound Hip Fungal Smear - Final NO FUNGAL ELEMENTS SEEN. Resulted 01/08/18 18:15 Wound Hip Fungal Culture Pending Resulted 01/08/18 18:15 Wound Hip Acid Fast Stain - Final NO ACID FAST BACILLI SEEN Resulted 01/08/18 18:15 Wound Hip Mycobacterial Culture Pending Resulted 01/08/18 18:15 Wound Hip Gram Stain - Final Complete 01/08/18 18:15 Wound Culture - Final Staphylococcus Aureus Complete Microbiology Date/Time Source Procedure Growth Status 01/07/18 15:56 Fluid Other Gram Stain - Final Complete 01/07/18 15:56 Body Fluid Culture - Final Staphylococcus Aureus Complete 01/08/18 18:15 Wound Hip Fungal Smear - Final NO FUNGAL ELEMENTS SEEN. Resulted 01/08/18 18:15 Wound Hip Fungal Culture Pending Resulted 01/08/18 18:15 Wound Hip Acid Fast Stain - Final NO ACID FAST BACILLI SEEN Resulted 01/08/18 18:15 Wound Hip Mycobacterial Culture Pending Resulted 01/08/18 18:15 Wound Hip Gram Stain - Final Complete 01/08/18 18:15 Wound Culture - Final Staphylococcus Aureus Complete IMAGING: Renal Ultrasound 01/09/18 0000 Signed Impressions: Service Date/Time: Tuesday, January 09, 2018 08:06 - CONCLUSION: 1. No abnormality is identified to explain the abnormal laboratory values. Right kidney demonstrates no hydronephrosis. 2. Suspected hepatic steatosis with nodular areas appearing within the visualized portions. This may represent atypical steatosis but this should be further evaluated at some point with liver MRI with and without intravenous contrast. Ceasar Oh MD Hip Aspiration/Injection 01/07/181999 Signed Impressions: Service Date/Time: Sunday, January 07, 2018 15:44 - CONCLUSION: Uncomplicated fluoroscopic guided left hip aspiration as above. Ceasar Parikh MD Chest X-Ray 01/07/18 Signed Impressions: Service Date/Time: Sunday, January 07, 2018 04:31 - CONCLUSION: 1. Cardiomegaly with mild positive fluid balance. Doug Hurtado MD Hip and Pelvis X-Ray 01/06/18 Signed Impressions: Service Date/Time: Saturday, January 06, 2018 11:38 - CONCLUSION: Arthritic change at the left hip joint. Ceasar Lopez MD Hip MRI 01/06/18 0000 Signed Impressions: Service Date/Time: Saturday, January 06, 2018 12:37 - CONCLUSION: Left hip joint effusion with joint space narrowing and surrounding enhancement. This can be secondary to underlying arthritis. Some peripheral inflammatory change from effusion could cause this appearance. Infection cannot be excluded in the correct clinical situation. However, given the osteophytes, much of this may be from chronic change. The edema within the adductor muscles and distal gluteal musculature could be from strain. Ceasar Lopez MD PHYSICAL EXAMINATION: GENERAL: Alert and oriented. No acute distress. HEENT: Extraocular movements grossly intact, pupils reactive to light. No icterus. Oropharynx has moist mucosa. Neck: Supple without adenopathy. Lungs: Decreased breath sounds. Heart: Regular S1-S2. No murmurs, rubs, or gallops. Abdomen: Bowel sounds present, soft, nontender. Mild distension. EXTREMITIES: No edema, no erythema. SKIN: No rash. NEUROLOGIC: No gross focal findings. PSYCHIATRIC: Calm and cooperative. Mercado catheter has clear light yellow urine. IMPRESSION 1. Septic arthritis of the left hip - Staph aureus sensitive to oxacillin. 2. Bacteremia - staph aureus. Sensitive to oxacillin. 3. Leukocytosis. Improved. 4. Acute on Chronic kidney disease. Kidney function improving. 5. Elevated Liver function tests - improving. RECOMMENDATIONS 1. Change cefazolin to Ceftriaxone for convenient dosing outpatient. The family plans to fly the patient back to [place] when she is stable enough for travel. They would be following up with her primary physician and an infectious disease physician as well when she gets back to [place]. 2. Monitor the temperature 3. Follow renal function. 4. Continue to monitor her clinical status. 5. Remove Mercado catheter as soon as possible. Patient needs IV antibiotics for four weeks until March 05, 2018. Her and plan on staying in the [facility] till Sunday and then travel back to [place]. Antibiotics written to be given during her stay here in [place]. Anticipate discharge once Arrangement is made for outpatient antibiotics. Discussed with patients . Discussed with patient's neurosurgeon Dr Jiménez in [place]. Patient to go to her oncologist's office when she arrives in [facility] to continue antibiotics. Rahul Aguirre MD Jan 11, 2018 10:59
--- NOTE | 2018-01-11 11:08 | HHI.FF ---
Infusion Therapy Location of Infusion Therapy: Home Health Care IV Infusion Order Patient Information Patient Weight 83.7 kg Diagnosis: (1) Septic arthritis of hip Coded Allergies: Penicillins (Verified Allergy, Mild, 01/06/18) sulfamethoxazole (Verified Allergy, Mild, 01/06/18) trimethoprim (Verified Allergy, Mild, 01/06/18) Administer Medication Ceftriaxone 2 grams IV Stop Treatment: Jan 16, 2018 Additional Information Venous access: Peripheral Additional Instructions [x] Peripheral flush and dressing changes per protocol [x] Implanted port and central gasoline engine assembler: * Implanted port: 10 ml Normal Saline followed by 5 ml Heparin 100 units/ml Heparin flush after each use and monthly to maintain. [] May leave port accessed during therapy. [] May leave peripheral site accessed for duration of therapy. [x] If patient has SOB or respiratory distress, check oxygen saturation. If less than 90% or clinical signs of respiratory distress, administer oxygen at 2 L/min. via nasal cannula and notify physician. [x] Anaphylaxis/Reaction orders: * Stop infusion. * Keep IV line open with saline flush. * Notify physician. * Monitor vital signs every 15 minutes until symptoms resolve. * Check Oxygen saturation; Oxygen at 2 L/min. via nasal cannula if less than 90% or clinical signs of respiratory distress. * Administer diphenhydramine (Benadryl) 25 mg IV STAT, (unless patient has received as pre-med). May repeat once, if necessary. * Solu-Cortef 250 mg IVP over 30-60 seconds, use 100 mg vials for each dissolution. * Epinephrine (1mg/1 ml) 0.3 mg subcutaneously or IVP now with any signs of respiratory distress. * Check with physician for new additional pre-med orders if patient is re- challenged or re-treated. [x] May remove PICC line when treatment complete, after confirming with Physician. [x] If the patient is admitted to the hospital, the ED, or transferred via [facility] , complete transfer form including medication reconciliation order sheet. Laboratory Tests Additional Information Patient to go to her oncologist's office as soon as she gets back to [place] to resume antibiotics. Okay to call me if any problems with antibiotics. Dr Aguirre [phone]. Rahul Aguirre MD Jan 11, 2018 11:08
[2018-01-11] MEDS ORDERED: ECASA81 PO (12:31)
[2018-01-11] MEDS ORDERED: TRAM50 PO (12:31)
[2018-01-11] MEDS ORDERED: NOVOLOGP2 SQ (12:33)
--- NOTE | 2018-01-11 12:56 | HHI.FF ---
Face to Face Verification Diagnosis: (1) Septic arthritis of hip (2) Acute renal failure Physical Therapy Order: Improve ambulation, Strength and gait training Home Health Nursing Order: Wound care and dressing changes Nursing assessment with vital signs IV medication administration I have seen patient Niurka Rucker on 01/11/18. My clinical findings support the need for the requested home health care services because: Limited ability to care for self High risk of falls Infection w/ risk of complications I certify that my clinical findings support that this patient is homebound because: Post-op weakness Unsteady gait/balance Unable to use public transportation Carl Veliz MD Jan 11, 2018 12:55
[2018-01-11] MEDS ORDERED: cefTRIAXone INJ 2,000 MG in SODIUM CHLORIDE 0.9% INJ 100 ML IV SCH (14:00)
[2018-01-11] MEDS ORDERED: ENOXAPARIN SODIUM 40 MG/0.4 ML SYRINGE SQ SCH (14:00)
--- NOTE | 2018-01-11 15:53 | HHI.PR ---
Subjective Remarks Deferred entry - patient seen at 9:50 am Pain in left hip is under control. Patient is afebrile. Objective Vitals Vital Signs Date Time Temp Pulse Resp B/P (MAP) Pulse Ox O2 Delivery O2 Flow Rate FiO2 01/11/18 12:00 98.8 55 76 128/61 (83) 98 01/11/18 12:00 98 Room Air 01/11/18 12:00 55 01/11/18 10:00 98.2 55 20 128/57 (80) 98 01/11/18 08:00 99 Room Air 01/11/18 08:00 98 01/11/18 04:00 106 01/11/18 04:00 98.3 106 24 124/62 (82) 97 01/11/18 00:00 71 01/11/18 00:00 99.3 71 23 124/64 (84) 98 01/10/18 20:28 99 21 01/10/18 20:00 99.3 73 27 116/58 (77) 100 01/10/18 20:00 73 01/10/18 16:00 100 Room Air 01/10/18 16:00 98.1 65 17 131/59 (83) 99 01/10/18 16:00 67 I/O 01/10/18 01/10/18 01/10/18 01/11/18 01/11/18 01/11/18 07:00 15:00 23:00 07:00 15:00 23:00 Intake Total 720 ml 960 ml 5733 ml Output Total 1050 ml 810 ml 800 ml Balance -330 ml 150 ml 4933 ml Intake Oral 720 ml 960 ml IV Total 5733 ml Output Urine Total 1050 ml 800 ml 800 ml Drainage Total 10 ml # Bowel Movements 0 0 0 Result Diagram: 01/10/18 0455 01/11/18 0440 Objective Remarks GENERAL: Well-nourished, well-developed patient. SKIN: Warm and dry. HEAD: Normocephalic. EYES: No scleral icterus. No injection or drainage. NECK: Supple, trachea midline. No JVD or lymphadenopathy. CARDIOVASCULAR: Regular rate and rhythm without murmurs, gallops, or rubs. RESPIRATORY: Breath sounds equal bilaterally. No accessory muscle use. GASTROINTESTINAL: Abdomen soft, non-tender, nondistended. MUSCULOSKELETAL: Limited range of motion of left hip due to severe pain. Incision dressing intact BACK: Nontender without obvious deformity. NEURO EXAM: The patient is alert and oriented to person, place, and time with normal speech. No focal deficit Procedures Joint aspiration Medications and IVs Current Medications Medications (Trade) Dose Ordered Sig/Dalia Route Start Time Stop Time Status Last Admin (Tylenol) 650 mg Q4H PRN PO 01/06/18 12:45 01/06/18 23:51 (Zofran Inj) 4 mg Q6H PRN IVP 01/06/18 12:45 (Narcan Inj) 0.4 mg UNSCH PRN IV PUSH 01/06/18 12:45 (Deidra-Colace) 1 tab BID PO 01/06/18 21:00 01/11/18 09:32 (Milk Of Magnesia Liq) 30 ml Q12H PRN PO 01/06/18 12:45 01/07/18 23:14 (Senokot) 17.2 mg Q12H PRN PO 01/06/18 12:45 01/11/18 10:08 (Lactulose Liq) 30 ml DAILY PRN PO 01/06/18 12:45 (Zoloft) 100 mg DAILY PO 01/07/18 09:00 01/11/18 09:32 Patient Own Medication PT OWN MED:(Alosetron (Lotronex... BID PO 01/06/18 21:00 (Mag-Ox) 400 mg DAILY PO 01/07/18 09:00 01/11/18 09:32 (Pravachol) 80 mg DAILY PO 01/07/18 09:00 01/11/18 09:32 (D50w (Vial) Inj) 50 ml UNSCH PRN IV PUSH 01/06/18 18:15 (Glucagon Inj) 1 mg UNSCH PRN OTHER 01/06/18 18:15 (NovoLOG SUPPLEMENTAL SCALE) 1 ACHS SLIDING SCALE SQ 01/06/18 21:00 01/10/18 09:05 (Tenormin) 50 mg DAILY PO 01/08/18 09:00 01/11/18 09:32 (NS Flush) 2 ml UNSCH PRN IV FLUSH 01/08/18 19:00 (NS Flush) 2 ml BID IV FLUSH 01/08/18 21:00 01/11/18 09:33 (Benadryl) 25 mg Q6H PRN PO 01/08/18 19:00 Sodium Chloride 1,000 ml @ 100 mls/hr Q10H IV 01/08/18 19:30 01/11/18 14:42 Miscellaneous Information Patient in critical care unit? Ass... Q361D .XX 01/08/18 23:15 01/08/18 23:11 (Chlorhexidine 2% Cloth) 3 pack DAILY@04 TOPICAL 01/09/18 04:00 01/13/18 04:01 01/10/18 04:00 (Chlorhexidine 2% Cloth) 3 pack UNSCH PRN TOPICAL 01/08/18 23:15 01/13/18 23:05 (Ecotrin Ec) 81 mg DAILY PO 01/09/18 11:00 01/11/18 09:32 (Sodium Bicarbonate) 650 mg Q8HR PO 01/09/18 14:00 01/11/18 12:17 (Ultram) 50 mg Q8H PRN PO 01/10/18 18:30 01/11/18 12:17 (Dilaudid Pf Inj) 0.5 mg Q4H PRN IV 01/10/18 22:00 01/11/18 00:53 (Dulcolax Supp) 10 mg DAILY PRN RECTAL 01/10/18 18:30 Ceftriaxone Sodium 2000 mg/ Sodium Chloride 100 ml @ 200 mls/hr Q24H IV 01/11/18 14:00 01/11/18 14:42 (Lovenox Inj) 40 mg Q24H SQ 01/11/18 14:00 01/11/18 14:41 (Pepcid Inj) 20 mg Q12HR IV PUSH 01/11/18 21:00 A/P Problem List: (1) Septic arthritis of hip ICD Code: M00.9 - Pyogenic arthritis, unspecified (2) Acute renal failure ICD Code: N17.9 - Acute kidney failure, unspecified Assessment and Plan Septic arthritis with staph aureus - Status post I&D by Dr. Moran - Staphylococcal infection - Antibiotics per ID (currently on Daptomycin-consider changing to Rocephin. PCN allergy listed as mild) -Septic arthritis management per ID and orthopedic surgery 2/3 patient has been cleared by orthopedic surgery to be discharged. Recommend progress rehab, weightbearing as tolerated, up to chair. Daily dressing changes with Primapore. Aspirin 81 mg twice daily for 20 days after surgery for DVT prophylaxis. Recommend that [facility] RN to DC zachary on postop day number 83. Follow-up with orthopedic surgery at home. Patient will be discharged with Ancef IV as per infectious disease recommendations. The patient will need a PICC line placed prior to DC. Acute kidney injury - due to sepsis with staph aureus infection - Continue with IV fluid NS 100 cc an hour - Avoid nephrotoxins - Avoid nonsteroidal anti-inflammatory drugs - Nephrology following -Acute kidney injury resolved, creatinine down to 0.88. Diabetes mellitus type 2 - Hold metformin - Accu-Cheks, insulin sliding scale Elevated troponin - Underlying kidney failure - Negative stress test. Most likely demand ischemia - Place on aspirin 81 mg daily. - Cannot use beta-blockers due to bradycardia and borderline hypotensive Constipation - Bowel Regime eith PRN medications - Discussed with RN Toxic Encephalopathy - Due to opiate medications. - Ordered one dose of Toradol however due to Jackson will RX tramadol -Resolved. Bateremia - MSSA bacteremia - Antibiotics as per ID. -We will order PICC line. The patient may be discharge after PICC line is placed. DVT GI prophylaxis - Teds SCDs - Subcutaneous Lovenox - Pepcid Discharge Planning Possible discharge later today after PICC line placed and after patient has a bowel movement. Problem Qualifiers (1) Septic arthritis of hip: Qualified Codes: M00.052 - Staphylococcal arthritis, left hip (2) Acute renal failure: Qualified Codes: N17.9 - Acute kidney failure, unspecified Carl Veliz MD Jan 11, 2018 15:53
--- NOTE | 2018-01-11 16:10 | HHI.DS ---
Discharge Summary Admission Date Jan 06, 2018 at 12:23 Discharge Date: Jan 11, 2018 Admitting Diagnosis Sepsis with left hip pain (1) Septic arthritis of hip ICD Code: M00.9 - Pyogenic arthritis, unspecified (2) Acute renal failure ICD Code: N17.9 - Acute kidney failure, unspecified Procedures Joint aspiration Brief History - From Admission The patient is a very pleasant 72yo F with PMH of Gcljx-Knbhm-Svgto, DM2, Irritable bowel, right colectomy secondary to adenocarcinoma of cecum 2006, carcinoid tumor s/p left nephrectomy 10/2016 and now cancer free since 2015 presents to the ED wtih c/o left hip pain for 3 days. Said she went to urgent care and they thought it was bursitis and gave her prednisone and tramadol. Said the pain is worst and she is unable to move her left hip due to pain. Denies any trauma, focal weakness or numbness, chest pain, sob, vomiting, abdominal pain. No urinary complaints. Denies any cough. Pt had fever and nausea today. CBC/BMP: 01/10/18 0455 01/11/18 0440 Significant Findings Laboratory Tests Test 01/08/18 21:00 01/09/18 04:55 01/09/18 05:30 01/10/18 04:55 Urine Turbidity HAZY (CLEAR) Urine Protein 30 mg/dL (NEG-TRACE) Urine Occult Blood SMALL (NEG) Urine Bacteria FEW /hpf (NONE) Red Blood Count 3.52 MIL/MM3 (4.00-5.30) 3.23 MIL/MM3 (4.00-5.30) Hemoglobin 9.4 GM/DL (11.6-15.3) 8.6 GM/DL (11.6-15.3) Hematocrit 28.7 % (35.0-46.0) 26.2 % (35.0-46.0) Mean Corpuscular Hemoglobin 26.8 PG (27.0-34.0) 26.8 PG (27.0-34.0) Neutrophils (%) (Auto) 89.9 % (16.0-70.0) 78.7 % (16.0-70.0) Lymphocytes (%) (Auto) 3.5 % (9.0-44.0) 7.4 % (9.0-44.0) Neutrophils # (Auto) 8.9 TH/MM3 (1.8-7.7) Lymphocytes # (Auto) 0.3 TH/MM3 (1.0-4.8) 0.4 TH/MM3 (1.0-4.8) Blood Urea Nitrogen 48 MG/DL (7-18) 48 MG/DL (7-18) Creatinine 1.68 MG/DL (0.50-1.00) 1.27 MG/DL (0.50-1.00) Random Glucose 185 MG/DL (74-106) 158 MG/DL (74-106) Albumin 2.4 GM/DL (3.4-5.0) Calcium Level 8.3 MG/DL (8.5-10.1) 8.2 MG/DL (8.5-10.1) Phosphorus Level 5.5 MG/DL (2.5-4.9) Magnesium Level 3.0 MG/DL (1.5-2.5) Alkaline Phosphatase 236 U/L (45-117) Aspartate Amino Transf (AST/SGOT) 164 U/L (15-37) Alanine Aminotransferase (ALT/SGPT) 264 U/L (10-53) Sodium Level 133 MEQ/L (136-145) 134 MEQ/L (136-145) Potassium Level 5.4 MEQ/L (3.5-5.1) Carbon Dioxide Level 20.6 MEQ/L (21.0-32.0) Estimat Glomerular Filtration Rate 30 ML/MIN (>89) 42 ML/MIN (>89) Monocytes (%) (Auto) 9.8 % (0.0-8.0) Test 01/11/18 04:40 Blood Urea Nitrogen 29 MG/DL (7-18) Random Glucose 157 MG/DL (74-106) Calcium Level 8.0 MG/DL (8.5-10.1) Carbon Dioxide Level 19.7 MEQ/L (21.0-32.0) Estimat Glomerular Filtration Rate 64 ML/MIN (>89) Aspartate Amino Transf (AST/SGOT) 101 U/L (15-37) Alanine Aminotransferase (ALT/SGPT) 133 U/L (10-53) Alkaline Phosphatase 452 U/L (45-117) Albumin 2.0 GM/DL (3.4-5.0) Imaging Last Impressions Renal Ultrasound 01/09/18 Signed Impressions: Service Date/Time: Tuesday, January 09, 2018 08:06 - CONCLUSION: 1. No abnormality is identified to explain the abnormal laboratory values. Right kidney demonstrates no hydronephrosis. 2. Suspected hepatic steatosis with nodular areas appearing within the visualized portions. This may represent atypical steatosis but this should be further evaluated at some point with liver MRI with and without intravenous contrast. Ceasar Oh MD Myocardial Perfusion Scan Nuc Med 01/08/18 Signed Impressions: Service Date/Time: Monday, January 08, 2018 13:56 - CONCLUSION: 1. No fixed or reversible perfusion defect is identified. 2. Global hypokinesia with reduced ejection fraction calculated at 44%%. RISK CATEGORY: Intermediate (1-3%% Annual Mortality Rate) Ceasar Oh MD Hip Aspiration/Injection 01/07/181999 Signed Impressions: Service Date/Time: Sunday, January 07, 2018 15:44 - CONCLUSION: Uncomplicated fluoroscopic guided left hip aspiration as above. Ceasar Parikh MD Chest X-Ray 01/07/18 Signed Impressions: Service Date/Time: Sunday, January 07, 2018 04:31 - CONCLUSION: 1. Cardiomegaly with mild positive fluid balance. Doug Hurtado MD Hip and Pelvis X-Ray 01/06/18 Signed Impressions: Service Date/Time: Saturday, January 06, 2018 11:38 - CONCLUSION: Arthritic change at the left hip joint. Ceasar Lopez MD Hip MRI 01/06/18 Signed Impressions: Service Date/Time: Saturday, January 06, 2018 12:37 - CONCLUSION: Left hip joint effusion with joint space narrowing and surrounding enhancement. This can be secondary to underlying arthritis. Some peripheral inflammatory change from effusion could cause this appearance. Infection cannot be excluded in the correct clinical situation. However, given the osteophytes, much of this may be from chronic change. The edema within the adductor muscles and distal gluteal musculature could be from strain. Ceasar Lopez MD PE at Discharge GENERAL: Well-nourished, well-developed patient. SKIN: Warm and dry. HEAD: Normocephalic. EYES: No scleral icterus. No injection or drainage. NECK: Supple, trachea midline. No JVD or lymphadenopathy. CARDIOVASCULAR: Regular rate and rhythm without murmurs, gallops, or rubs. RESPIRATORY: Breath sounds equal bilaterally. No accessory muscle use. GASTROINTESTINAL: Abdomen soft, non-tender, nondistended. MUSCULOSKELETAL: Limited range of motion of left hip due to severe pain. Incision dressing intact BACK: Nontender without obvious deformity. NEURO EXAM: The patient is alert and oriented to person, place, and time with normal speech. No focal deficit Pt Condition on Discharge: Stable Discharge Disposition: Disch w/ Home Health Serv Discharge Time: > 30 minutes Discharge Instructions DIET: Follow Instructions for: As Tolerated, No Restrictions Activities you can perform: Regular-No Restrictions Activities to Avoid: Strenuous Activity Other Activity Instructions: Progress rehab, w/b as tolerated, up to chair Follow up Referrals: Infectious Disease - 1 Week Orthopedics - 1 Week PCP Follow-up - 1 Week New Medications: Insulin Aspart Inj (Novolog Inj) 1,000 Unit/10 Ml Vial 2-12 UNITS SQ ACHS for Blood Sugar Management, #10 ML 0 Refills Max dose at bedtime ( ) units; sugars less than 70,(0) units; sugars 150-199,(2) units; sugars 200-249,(4) units; sugars 250-299,(7) units; sugars 300-349,(10) units; sugars greater than 349,(12)units Aspirin DR (Aspirin DR) 81 Mg Tabdr 81 MG PO DAILY for Blood Clot Prevention, #31 TAB Tramadol (Ultram) 50 Mg Tab 50 MG PO Q8H PRN for PAIN SCALE 1 TO 10, #30 TAB Continued Medications: Alosetron (Lotronex) 1 Mg Tab 1 MG PO BID for Irritable Bowel Syndrome, #60 TAB 0 Refills Atenolol (Atenolol) 25 Mg Tab 25 MG PO DAILY for Blood Pressure Management, #30 TAB B-Complex Vitamins (B Complex) 1 Cap 1 CAP PO DAILY for Nutritional Supplement, #30 CAP 0 Refills Calcium Carbonate-Cholecalciferol (Calcium 600 with Vitamin D) 600-400 mg-Unit Tab 1 TAB PO DAILY for Calcium Supplement, TAB 0 Refills Glucosamine-Chondroitin (Glucosamine-Chondroitin) 500-400 Mg Tab 1 TAB PO DAILY for Herbal Supplements, TAB 0 Refills Magnesium Oxide (Magnesium Oxide) 500 Mg Tab 500 MG PO DAILY, TAB 0 Refills Metformin (Glucophage) 1,000 Mg Tab 1000 MG PO BIDPC for Blood Sugar Management, #60 TAB 0 Refills Multivit-Min/Iron/Folic/Lutein (Centrum Silver Women Tablet) 8 Mg Iron-400 Mcg- 300 Mcg Tablet 1 Niacin (Niacin) 500 Mg Tab 500 MG PO DAILY for Cholesterol Management, #30 TAB 0 Refills Sertraline (Zoloft) 100 Mg Tab 100 MG PO DAILY, #30 TAB 0 Refills Simvastatin (Zocor) 40 Mg Tab 40 MG PO DAILY for Cholesterol Management, #30 TAB 0 Refills Carl Veliz MD Jan 11, 2018 16:10
--- NOTE | 2018-01-11 23:26 | HHI.PR ---
Objective Vitals Vital Signs Date Time Temp Pulse Resp B/P (MAP) Pulse Ox O2 Delivery O2 Flow Rate FiO2 01/11/18 16:00 97.6 61 18 119/70 (86) 99 01/11/18 12:00 98.8 55 76 128/61 (83) 98 01/11/18 12:00 98 Room Air 01/11/18 12:00 55 01/11/18 10:00 98.2 55 20 128/57 (80) 98 01/11/18 08:00 99 Room Air 01/11/18 08:00 98 01/11/18 04:00 106 01/11/18 04:00 98.3 106 24 124/62 (82) 97 01/11/18 00:00 71 01/11/18 00:00 99.3 71 23 124/64 (84) 98 I/O 01/11/18 01/11/18 01/11/18 01/12/18 01/12/18 01/12/18 07:00 15:00 23:00 07:00 15:00 23:00 Intake Total 5733 ml 744 ml Output Total 800 ml Balance 4933 ml 744 ml IV Total 5733 ml 744 ml Output Urine Total 800 ml # Voids 1 # Bowel Movements 0 1 Result Diagram: 01/10/18 0455 01/11/18 0440 Objective Remarks GENERAL: Well-nourished, well-developed patient. SKIN: Warm and dry. HEAD: Normocephalic. EYES: No scleral icterus. No injection or drainage. NECK: Supple, trachea midline. No JVD or lymphadenopathy. CARDIOVASCULAR: Regular rate and rhythm without murmurs, gallops, or rubs. RESPIRATORY: Breath sounds equal bilaterally. No accessory muscle use. GASTROINTESTINAL: Abdomen soft, non-tender, nondistended. MUSCULOSKELETAL: Limited range of motion of left hip due to severe pain. Incision dressing intact BACK: Nontender without obvious deformity. NEURO EXAM: The patient is alert and oriented to person, place, and time with normal speech. No focal deficit Procedures Joint aspiration A/P Problem List: (1) Septic arthritis of hip ICD Code: M00.9 - Pyogenic arthritis, unspecified (2) Acute renal failure ICD Code: N17.9 - Acute kidney failure, unspecified Assessment and Plan Septic arthritis with staph aureus - Status post I&D by Dr. Moran - Staphylococcal infection - Antibiotics per ID (currently on Daptomycin-consider changing to Rocephin. PCN allergy listed as mild) -Septic arthritis management per ID and orthopedic surgery 2/3 patient has been cleared by orthopedic surgery to be discharged. Recommend progress rehab, weightbearing as tolerated, up to chair. Daily dressing changes with Primapore. Aspirin 81 mg twice daily for 20 days after surgery for DVT prophylaxis. Recommend that C RN to DC zachary on postop day number 83. Follow-up with orthopedic surgery at home. Patient will be discharged with Ancef IV as per infectious disease recommendations. The patient will need a PICC line placed prior to DC. Acute kidney injury - due to sepsis with staph aureus infection - Continue with IV fluid NS 100 cc an hour - Avoid nephrotoxins - Avoid nonsteroidal anti-inflammatory drugs - Nephrology following -Acute kidney injury resolved, creatinine down to 0.88. Diabetes mellitus type 2 - Hold metformin - Accu-Cheks, insulin sliding scale Elevated troponin - Underlying kidney failure - Negative stress test. Most likely demand ischemia - Place on aspirin 81 mg daily. - Cannot use beta-blockers due to bradycardia and borderline hypotensive Constipation - Bowel Regime eith PRN medications - Discussed with RN Toxic Encephalopathy - Due to opiate medications. - Ordered one dose of Toradol however due to Jackson will RX tramadol -Resolved. Bateremia - MSSA bacteremia - Antibiotics as per ID. -We will order PICC line. The patient may be discharge after PICC line is placed. DVT GI prophylaxis - Teds SCDs - Subcutaneous Lovenox - Pepcid Discharge Planning Possible discharge later today after PICC line placed and after patient has a bowel movement. Problem Qualifiers (1) Septic arthritis of hip: Qualified Codes: M00.052 - Staphylococcal arthritis, left hip (2) Acute renal failure: Qualified Codes: N17.9 - Acute kidney failure, unspecified Carl Veliz MD Jan 11, 2018 23:25
[2018-01-12] VITALS (8 sets, daily range): BP systolic 118–146; BP diastolic 58–68; PULSE 56–64; RESP 18–20; TEMP 97.2–98.3; O2SAT 96–97
[2018-01-12] MEDS: SODIUM CHLOR 0.9% 1000 ML INJ 1,000 ML IV SCH (03:30)
[2018-01-12] MEDS: CHLORHEXIDINE GLUCONATE 2 % 1 PACK (2 CLOTHS)(taper/protocol) TOPICAL SCH (04:00)
[2018-01-12] MEDS: SODIUM BICARBONATE 650 MG TAB PO SCH (06:10)
[2018-01-12] MEDS: INSULIN ASPART SUPPLEMENTAL SCALE SQ SCH ×2 (08:00→12:15)
[2018-01-12] MEDS: traMADol HCL 50 MG TAB PO PRN ×2 (08:36→14:51)
[2018-01-12] MEDS: ATENOLOL 50 MG TAB PO SCH (08:36)
[2018-01-12] MEDS: SERTRALINE HCL 100 MG TAB PO SCH (08:36)
[2018-01-12] MEDS: PRAVASTATIN SOD 80 MG TAB PO SCH (08:37)
[2018-01-12] MEDS: MAGNESIUM OXIDE 400 MG TAB PO SCH (08:37)
[2018-01-12] MEDS: ASPIRIN EC 81 MG TABEC PO SCH (08:37)
[2018-01-12] MEDS: DOCUSATE SODIUM 50 MG/SENNA 8.6 MG TAB PO SCH (08:37)
[2018-01-12] MEDS: FAMOTIDINE 20 MG/2 ML VIAL IV PUSH SCH (08:38)
[2018-01-12] MEDS: SODIUM CHLORIDE 0.9% FLUSH 10 ML FLUSH IV FLUSH SCH (08:38)
--- NOTE | 2018-01-12 12:59 | HHI.DCPOC ---
Discharge Care Plan Diagnosis: (1) Septic arthritis of hip (2) Acute renal failure Goals to Promote Your Health * To prevent worsening of your condition and complications * To maintain your health at the optimal level Directions to Meet Your Goals Take your medications as prescribed Follow your dietary instruction Follow activity as directed Keep your appointments as scheduled Take your immunizations and boosters as scheduled If your symptoms worsen call your PCP, if no PCP go to Urgent Care Center or Emergency Room Smoking is Dangerous to Your Health. Avoid second hand smoke Call the 24-hour hour crisis hotline for domestic abuse at Jesus Walton DO Jan 12, 2018 12:59
[2018-01-12] MEDS ORDERED: TRAM50 PO (13:03)
[2018-01-12] MEDS ORDERED: ECASA81 PO (13:10)
--- NOTE | 2018-01-12 13:14 | HHI.DS ---
Discharge Summary Admission Date Jan 06, 2018 at 12:23 Discharge Date: Jan 12, 2018 Admitting Diagnosis Sepsis with left hip pain (1) Septic arthritis of hip ICD Code: M00.9 - Pyogenic arthritis, unspecified Diagnosis: Principal (2) Acute renal failure ICD Code: N17.9 - Acute kidney failure, unspecified Procedures Joint aspiration Brief History - From Admission The patient is a very pleasant 72yo F with PMH of Jteiz-Izxdw-Cvbus, DM2, Irritable bowel, right colectomy secondary to adenocarcinoma of cecum 2006, carcinoid tumor s/p left nephrectomy 10/2016 and now cancer free since 2015 presents to the ED wtih c/o left hip pain for 3 days. Said she went to urgent care and they thought it was bursitis and gave her prednisone and tramadol. Said the pain is worst and she is unable to move her left hip due to pain. Denies any trauma, focal weakness or numbness, chest pain, sob, vomiting, abdominal pain. No urinary complaints. Denies any cough. Pt had fever and nausea today. CBC/BMP: 01/10/18 0455 01/11/18 0440 Significant Findings Laboratory Tests Test 01/10/18 04:55 01/11/18 04:40 Red Blood Count 3.23 MIL/MM3 (4.00-5.30) Hemoglobin 8.6 GM/DL (11.6-15.3) Hematocrit 26.2 % (35.0-46.0) Mean Corpuscular Hemoglobin 26.8 PG (27.0-34.0) Neutrophils (%) (Auto) 78.7 % (16.0-70.0) Lymphocytes (%) (Auto) 7.4 % (9.0-44.0) Monocytes (%) (Auto) 9.8 % (0.0-8.0) Lymphocytes # (Auto) 0.4 TH/MM3 (1.0-4.8) Blood Urea Nitrogen 48 MG/DL (7-18) 29 MG/DL (7-18) Creatinine 1.27 MG/DL (0.50-1.00) Random Glucose 158 MG/DL (74-106) 157 MG/DL (74-106) Calcium Level 8.2 MG/DL (8.5-10.1) 8.0 MG/DL (8.5-10.1) Sodium Level 134 MEQ/L (136-145) Estimat Glomerular Filtration Rate 42 ML/MIN (>89) 64 ML/MIN (>89) Carbon Dioxide Level 19.7 MEQ/L (21.0-32.0) Aspartate Amino Transf (AST/SGOT) 101 U/L (15-37) Alanine Aminotransferase (ALT/SGPT) 133 U/L (10-53) Alkaline Phosphatase 452 U/L (45-117) Albumin 2.0 GM/DL (3.4-5.0) Imaging Last Impressions Renal Ultrasound 01/09/18 Signed Impressions: Service Date/Time: Tuesday, January 09, 2018 08:06 - CONCLUSION: 1. No abnormality is identified to explain the abnormal laboratory values. Right kidney demonstrates no hydronephrosis. 2. Suspected hepatic steatosis with nodular areas appearing within the visualized portions. This may represent atypical steatosis but this should be further evaluated at some point with liver MRI with and without intravenous contrast. Ceasar Oh MD Myocardial Perfusion Scan Nuc Med 01/08/18 Signed Impressions: Service Date/Time: Monday, January 08, 2018 13:56 - CONCLUSION: 1. No fixed or reversible perfusion defect is identified. 2. Global hypokinesia with reduced ejection fraction calculated at 44%%. RISK CATEGORY: Intermediate (1-3%% Annual Mortality Rate) Ceasar Oh MD Hip Aspiration/Injection 01/07/181999 Signed Impressions: Service Date/Time: Sunday, January 07, 2018 15:44 - CONCLUSION: Uncomplicated fluoroscopic guided left hip aspiration as above. Ceasar Parikh MD Chest X-Ray 01/07/18 Signed Impressions: Service Date/Time: Sunday, January 07, 2018 04:31 - CONCLUSION: 1. Cardiomegaly with mild positive fluid balance. Doug Hurtado MD Hip and Pelvis X-Ray 01/06/18 Signed Impressions: Service Date/Time: Saturday, January 06, 2018 11:38 - CONCLUSION: Arthritic change at the left hip joint. Ceasar Lopez MD Hip MRI 01/06/18 0000 Signed Impressions: Service Date/Time: Saturday, January 06, 2018 12:37 - CONCLUSION: Left hip joint effusion with joint space narrowing and surrounding enhancement. This can be secondary to underlying arthritis. Some peripheral inflammatory change from effusion could cause this appearance. Infection cannot be excluded in the correct clinical situation. However, given the osteophytes, much of this may be from chronic change. The edema within the adductor muscles and distal gluteal musculature could be from strain. Ceasar Lopez MD PE at Discharge GENERAL: Well-nourished, well-developed patient. SKIN: Warm and dry. HEAD: Normocephalic. EYES: No scleral icterus. No injection or drainage. NECK: Supple, trachea midline. No JVD or lymphadenopathy. CARDIOVASCULAR: Regular rate and rhythm without murmurs, gallops, or rubs. RESPIRATORY: Breath sounds equal bilaterally. No accessory muscle use. GASTROINTESTINAL: Abdomen soft, non-tender, nondistended. MUSCULOSKELETAL: Limited range of motion of left hip due to severe pain. Incision dressing intact BACK: Nontender without obvious deformity. NEURO EXAM: The patient is alert and oriented to person, place, and time with normal speech. No focal deficit Pt update on day of discharge The patient was feeling well and is looking forward to going home. Her was at the bedside and their questions were answered. The patient will be going to a hotel and then going on an airplane back home in a few days. She would like tramadol for pain control. She says she always has dark stools. Discussed with nursing. Hospital Course Septic arthritis with staph aureus Status post I&D by Dr. Moran. Staphylococcal infection noted (MSSA bacteremia) . ID was consulted. Antibiotics per ID switched to ceftriaxone. The pt worked with PT. The patient has been cleared by orthopedic surgery to be discharged. Recommended weightbearing as tolerated, up to chair. Daily dressing changes with Primapore. Aspirin 81 mg twice daily for 20 days after surgery for DVT prophylaxis. Recommend that HHC RN to DC zachary on postop day number 8 (01/16/18 ). Follow-up with orthopedic surgery at home. Patient will be discharged with Ancef IV as per infectious disease recommendations. HHC and antibiotics have been arranged by case management. Acute kidney injury Nephrology was consulted. Improved with IV fluids. The pt will avoid nephrotoxins. Diabetes mellitus type 2 The pt was placed on Accu-Cheks and an insulin sliding scale. She will resume metformin upon discharge. Elevated troponin Cardiology was consulted. Negative stress test. Most likely demand ischemia. Placed on aspirin. She will follow up with cardiology as an outpt. Toxic encephalopathy Due to opiate medications. She tolerated Tramadol well. Pt Condition on Discharge: Stable Discharge Disposition: Disch w/ Home Health Serv Discharge Time: > 30 minutes Discharge Instructions DIET: Follow Instructions for: As Tolerated, No Restrictions Activities you can perform: See Additionl Instruction Activities to Avoid: Strenuous Activity Other Activity Instructions: Progress rehab, w/b as tolerated, up to chair Follow up Referrals: Cardiology - 2 Weeks Infectious Disease - 1 Week Orthopedics - 1 Week PCP Follow-up - 1 Week New Medications: Insulin Aspart Inj (Novolog Inj) 1,000 Unit/10 Ml Vial 2-12 UNITS SQ ACHS for Blood Sugar Management, #10 ML 0 Refills Max dose at bedtime ( ) units; sugars less than 70,(0) units; sugars 150-199,(2) units; sugars 200-249,(4) units; sugars 250-299,(7) units; sugars 300-349,(10) units; sugars greater than 349,(12)units Walker Rolling/GetGo (Walker Rolling/GetGo) 1 Mis Mis EA .XX DIRECTED, #[address] (Aspirin DR) 81 Mg Tabdr 81 MG PO BID for Blood Clot Prevention, #40 TAB Tramadol (Ultram) 50 Mg Tab 50 MG PO Q8H PRN for pain, #30 TAB Continued Medications: Alosetron (Lotronex) 1 Mg Tab 1 MG PO BID for Irritable Bowel Syndrome, #60 TAB 0 Refills Atenolol (Atenolol) 25 Mg Tab 25 MG PO DAILY for Blood Pressure Management, #30 TAB B-Complex Vitamins (B Complex) 1 Cap 1 CAP PO DAILY for Nutritional Supplement, #30 CAP 0 Refills Calcium Carbonate-Cholecalciferol (Calcium 600 with Vitamin D) 600-400 mg-Unit Tab 1 TAB PO DAILY for Calcium Supplement, TAB 0 Refills Glucosamine-Chondroitin (Glucosamine-Chondroitin) 500-400 Mg Tab 1 TAB PO DAILY for Herbal Supplements, TAB 0 Refills Magnesium Oxide (Magnesium Oxide) 500 Mg Tab 500 MG PO DAILY, TAB 0 Refills Metformin (Glucophage) 1,000 Mg Tab 1000 MG PO BIDPC for Blood Sugar Management, #60 TAB 0 Refills Multivit-Min/Iron/Folic/Lutein (Centrum Silver Women Tablet) 8 Mg Iron-400 Mcg- 300 Mcg Tablet 1 Niacin (Niacin) 500 Mg Tab 500 MG PO DAILY for Cholesterol Management, #30 TAB 0 Refills Sertraline (Zoloft) 100 Mg Tab 100 MG PO DAILY, #30 TAB 0 Refills Simvastatin (Zocor) 40 Mg Tab 40 MG PO DAILY for Cholesterol Management, #30 TAB 0 Refills Jesus Walton DO Jan 12, 2018 13:14
[2018-01-12] MEDS ORDERED: GETGO ROLLING W1 MI1 (14:00)
== END 2018-01-12 15:35 | disposition home health service (06) | DRG 480 ==
LOC: NEPE 09:44 → NEDA 12:23 → N05B 15:08 → HIMN 01-08 19:51 → N05B 01-11 13:22
PROVIDERS: ADMIT Hospitalist; ATTEND Hospitalist
PROC: 0S9B3ZX Drainage of Left Hip Joint, Percutaneous Approach, Diagnostic (ICD-10-PCS; 2018-01-07)
PROC: 0T9B70Z Drainage of Bladder with Drainage Device, Via Natural or Artificial Opening (ICD-10-PCS; 2018-01-08)
PROC: 0S9B00Z Drainage of Left Hip Joint with Drainage Device, Open Approach (ICD-10-PCS; principal; 2018-01-08 17:35)
DX: M00.052 Staphylococcal arthritis, left hip (principal); N17.0 Acute kidney failure with tubular necrosis; I24.8 Other forms of acute ischemic heart disease; G92 Toxic encephalopathy; E87.2 Acidosis; D89.9 Disorder involving the immune mechanism, unspecified; E11.22 Type 2 diabetes mellitus with diabetic chronic kidney disease; I78.0 Hereditary hemorrhagic telangiectasia; I48.91 Unspecified atrial fibrillation; B95.61 Methicillin susceptible Staphylococcus aureus infection as the cause of diseases classified elsewhere; K58.9 Irritable bowel syndrome, unspecified; N18.9 Chronic kidney disease, unspecified; M16.12 Unilateral primary osteoarthritis, left hip; M25.452 Effusion, left hip; E78.5 Hyperlipidemia, unspecified; T40.605A Adverse effect of unspecified narcotics, initial encounter; Y92.239 Unspecified place in hospital as the place of occurrence of the external cause; R79.89 Other specified abnormal findings of blood chemistry; Z90.5 Acquired absence of kidney; Z85.038 Personal history of other malignant neoplasm of large intestine; Z85.528 Personal history of other malignant neoplasm of kidney; Z86.19 Personal history of other infectious and parasitic diseases; Z85.828 Personal history of other malignant neoplasm of skin; Z90.49 Acquired absence of other specified parts of digestive tract; Z79.84 Long term (current) use of oral hypoglycemic drugs; Z88.1 Allergy status to other antibiotic agents; Z88.0 Allergy status to penicillin
CPT/HCPCS: 20610; 71045; 73502; 73723; 76775; 77002; 78452; 80048; 80053; 80076; 80202; 81001; 82550; 82552; 82565; 82570; 82948; 83605; 83735; 83880; 84100; 84300; 84484; 85025; 85610; 85652; 85730; 86140; 86403; 87015; 87040; 87070; 87102; 87116; 87147; 87186; 87205; 87206; 87641; 89051; 93005; 93017; 93306; 94150; 96361; 96374; 96375; A9502; A9579; J0690; J0696; J0878; J1100; J1170; J1650; J1815; J1885; J2270; J2370; J2405; J2710; J2785; J3010; J3370; J7030; J7040; J7050